=== PATIENT | male | born 1960 | race African-American/Black ===

== ENCOUNTER 2017-04-28 18:15 | Inpatient (IN) | payer BC ==
--- NOTE | 2017-04-28 20:35 | PDOC ---
History of Present Illness <Adan Broderick - Last Filed: 04/28/17 23:26> - General History Source: Patient Exam Limitations: No Limitations - History of Present Illness Initial Comments: 04/28/17 21:11 The patient is a 56-year-old male, with a significant past medical history of bipolar disorder (on [place]), who presents to the ED with urinary incontinence that began yesterday. Pt had a recent prostate procedure done by Dr. Esther Negro for an enlarged prostate. Pt was able to use the bathroom normally after having the procedure done, but yesterday the patient states that he could not control his urine. He has not been able to get to the bathroom on time when he gets the urge to go. Pt also reports that he has been having difficulty speaking today and has not been able to get his words out. He normally does not have trouble speaking. Pt denies having any pain around his testicles. He denies any back pain or weakness. He denies any fever or abdominal pain. Surgical Hx: Right knee surgery Social Hx: Pt denies any tobacco, alcohol or drug use. Urologist: Dr. Esther Negro <Halley Patricia - Last Filed: 04/29/17 00:39> - General Chief Complaint: Urinary Problem Stated Complaint: URINARY PROBLEM/change in mental status Time Seen by Provider: 04/28/17 20:34 Past History - Past Medical History Psychiatric Problems: Yes (BIPOLAR) Other medical history: urinary problem - Psycho/Social/Smoking Cessation Hx Suicidal Ideation: No Smoking Status: No Smoking History: Never smoked Number of Cigarettes Smoked Daily: 0 Information on smoking cessation initiated: No Hx Alcohol Use: No Drug/Substance Use Hx: No Substance Use Type: None <Adan Broderick - Last Filed: 04/28/17 23:26> <Halley Patricia - Last Filed: 04/29/17 00:39> - Past Medical History Allergies/Adverse Reactions: Allergies Allergy/AdvReac Type Severity Reaction Status Date / Time No Known Allergies Allergy Verified 04/28/17 22:47 Home Medications: Ambulatory Orders [place] Aspartate [Lithate] 0 mg PO DAILY 04/28/17 Review of Systems - Review of Systems Able to Perform ROS?: Yes Comments:: 04/28/17 21:12 GENERAL/CONSTITUTIONAL: No fever or chills. No weakness. HEAD, EYES, EARS, NOSE AND THROAT: No change in vision. No ear pain or discharge. No sore throat. CARDIOVASCULAR: No chest pain or shortness of breath. RESPIRATORY: No cough, wheezing, or hemoptysis. GASTROINTESTINAL: No nausea, vomiting, diarrhea or constipation. GENITOURINARY: +urinary incontinence. No dysuria. MUSCULOSKELETAL: No joint or muscle swelling or pain. No neck or back pain. SKIN: No rash NEUROLOGIC: +Difficulty speaking. No headache, vertigo, loss of consciousness, or change in strength/sensation. ENDOCRINE: No increased thirst. No abnormal weight change. HEMATOLOGIC/LYMPHATIC: No anemia, easy bleeding, or history of blood clots. ALLERGIC/IMMUNOLOGIC: No hives or skin allergy. <Halley Patricia - Last Filed: 04/29/17 00:39> *Physical Exam - Vital Signs Last Vital Signs Temp Pulse Resp BP Pulse Ox 99 F 105 H 18 112/61 97 04/28/17 18:28 04/28/17 18:28 04/28/17 18:28 04/28/17 18:28 04/28/17 18:28 <Adan Broderick - Last Filed: 04/28/17 23:26> - Vital Signs Last Vital Signs Temp Pulse Resp BP Pulse Ox 99 F 105 H 18 112/61 97 04/28/17 18:28 04/28/17 18:28 04/28/17 18:28 04/28/17 18:28 04/28/17 18:28 - Physical Exam Comments: 04/28/17 21:13 GENERAL: Awake, alert, and fully oriented, in no acute distress HEAD: No signs of trauma EYES: PERRLA, EOMI, sclera anicteric, conjunctiva clear ENT: Auricles normal inspection, hearing grossly normal, nares patent, oropharynx clear without exudates. Moist mucosa NECK: Normal ROM, supple, no lymphadenopathy, JVD, or masses LUNGS: Breath sounds equal, clear to auscultation bilaterally. No wheezes, and no crackles HEART: Regular rate and rhythm, normal S1 and S2, no murmurs, rubs or gallops ABDOMEN: +Diffusely tender over bladder. Abdomen is distended. Soft, normoactive bowel sounds. No guarding, no rebound. No masses EXTREMITIES: Normal range of motion, no edema. No clubbing or cyanosis. No cords, erythema, or tenderness NEUROLOGICAL: Cranial nerves II through XII grossly intact. SKIN: Warm, Dry, normal turgor, no rashes or lesions noted <Halley Patricia - Last Filed: 04/29/17 00:39> ED Treatment Course - LABORATORY CBC & Chemistry Diagram: 04/28/17 21:24 04/28/17 21:24 <Adan Broderick - Last Filed: 04/28/17 23:26> - LABORATORY CBC & Chemistry Diagram: 04/28/17 21:24 04/28/17 21:24 <Halley Patricia - Last Filed: 04/29/17 00:39> Medical Decision Making - Medical Decision Making 04/29/17 00:37 Family provided the patient's prescription bottles. He is taking tamsulosin 0.4 mg capsules (1 capsule everyday) and lithium carbonate 450 mg tablets (1 tablet twice a day). <HarshadHalley - Last Filed: 04/29/17 00:39> *DC/Admit/Observation/Transfer - Discharge Dispostion Admit: Yes - Attestations Physician Attestion: 04/28/17 20:35 I, Dr. Adan Broderick, attest that this document has been prepared under my direction and personally reviewed by me in its entirety. I further attest, that it accurately reflects all work, treatment, procedures and medical decision -making performed by me. <Adan Broderick - Last Filed: 04/28/17 23:26> - Attestations Scribe Attestion: 04/28/17 21:13 Documentation prepared by Halley Patricia, acting as medical claims analyst for Adan Broderick MD. <HarshadHalley - Last Filed: 04/29/17 00:39> Diagnosis at time of Disposition: Sepsis Qualifiers: Sepsis type: sepsis due to unspecified organism Qualified Code(s): A41.9 - Sepsis, unspecified organism UTI (urinary tract infection) Qualifiers: Urinary tract infection type: site unspecified Hematuria presence: with hematuria Qualified Code(s): N39.0 - Urinary tract infection, site not specified - Discharge Dispostion Condition at time of disposition: Improved
[2017-04-28] MEDS ORDERED: SODIUM CHLORIDE 0.9% 1000 ML INFUS.BAG IV STA (20:44)
[2017-04-28 21:26] LABS: VENOUS BLOOD GAS HCO3 22.7 meq/L (19-25); VENOUS PH 7.43 (7.32-7.42)
[2017-04-28 21:48] LABS: MCH 26.7 pg (25.7-33.7); MCHC 32.4 g/dl (32.0-35.9); MEAN CELL VOLUME 82.5 fl (80-96); MEAN PLT VOLUME 10.2 fl (7.5-11.1); PLATELET COUNT 124 K/MM3 (134-434); RDW 14.8 % (11.9-15.9); WHITE BLOOD COUNT 23.8 K/mm3 (4.0-10.0)
[2017-04-28 21:54] LABS: URINE APPEARANCE CLOUDY; URINE BILIRUBIN NEGATIVE (NEGATIVE); URINE BLOOD 3+ (NEGATIVE); URINE COLOR AMBER; URINE GLUCOSE (UA) NEGATIVE (NEGATIVE); URINE KETONE NEGATIVE (NEGATIVE); URINE NITRITE NEGATIVE (NEGATIVE)
[2017-04-28 21:55] LABS: URINE LEUK ESTERASE 3+ (NEGATIVE); URINE PROTEIN 2+ (NEGATIVE)
[2017-04-28 21:58] LABS: URINE BACTERIA RARE /hpf (NONE SEEN); URINE RBC 56 /hpf (0-3); URINE WBC 1031 /hpf (3-5); YEAST FEW
[2017-04-28 22:01] LABS: URINE MARIJUANA THC NEGATIVE ng/ml (CUTOFF=50)
[2017-04-28 22:08] LABS: INR 2.1 (0.82-1.09); PROTHROMBIN TIME (PATIENT) 23.4 SEC (9.98-11.88)
[2017-04-28 22:11] LABS: ACTIVATED PTT 31.6 SECONDS (26.9-34.4)
[2017-04-28 22:14] LABS: DOHLE BODIES 1+; PLATELET ESTIMATE DECREASED (NORMAL); POLYCHROMASIA FEW; TOXIC GRANULATION FEW
[2017-04-28 22:20] LABS: ALBUMIN 3.2 g/dl (3.4-5.0); ANION GAP 8 (8-16); BILIRUBIN,TOTAL 1.6 mg/dL (0.2-1.0); CALCIUM 8.3 mg/dL (8.5-10.1); CO2 23 mmol/L (21-32); CREATININE 2.2 mg/dL (0.7-1.3); GLUCOSE,RANDOM 123 mg/dL (74-106); SGOT/AST 29 U/L (15-37); SGPT/ALT 49 U/L (12-78); TOT PROT 6.4 g/dl (6.4-8.2)
[2017-04-28 22:22] LABS: ALK PHOS 38 U/L (45-117); CPK 209 IU/L (39-308); TROPONIN I < 0.02 ng/ml (0.00-0.05)
[2017-04-28] MEDS ORDERED: SODIUM CHLORIDE 1,000 ML IV STA (22:33)
[2017-04-28] MEDS ORDERED: MEROPENEM 1,000 MG in DEXTROSE 5%-WATER - 100 ML IVPB ONE (22:40)
--- NOTE | 2017-04-28 22:49 | CONSULT ---
Consult Consult Specialty:: infectious diseases Reason for Consultation:: sepsis. uti - History of Present Illness Chief Complaint: fever weakness,increased urination History of Present Illness: The patient is a 56-year-old male, with a significant past medical history of bipolar disorder (on [place]), admitted with urinary incontinence that began yesterday. Pt had a recent prostate procedure done by Dr. Esther Negro for an enlarged prostate. Pt was able to use the bathroom normally after having the procedure done, but yesterday the patient states that he could not control his urine. He has not been able to get to the bathroom on time when he gets the urge to go. He also reports that there was some difficulty in speaking and the main concern was him that he was not able to hold his urine at all patient also mentions that he was starting to be febrile he currently looks much better and has no other issues patient was started on abx last night - History Source History Provided By: Patient Limitations to Obtaining History: No Limitations - Alcohol/Substance Use Hx Alcohol Use: No - Smoking History Smoking history: Never smoked Aproximately how many cigarettes per day: 0 Home Medications - Allergies Allergies/Adverse Reactions: Allergies Allergy/AdvReac Type Severity Reaction Status Date / Time No Known Allergies Allergy Verified 04/28/17 22:47 - Home Medications Home Medications: Ambulatory Orders [place] Aspartate [Lithate] 0 mg PO DAILY 04/28/17 [place] Carbonate [Eskal[place] -] 450 mg PO BID 04/29/17 Tamsulosin HCl [Flomax] 0.4 mg PO DAILY 04/29/17 Review of Systems - Review of Systems Constitutional: reports: Fever Eyes: reports: No Symptoms HENT: reports: No Symptoms Neck: reports: No Symptoms Cardiovascular: reports: No Symptoms Respiratory: reports: No Symptoms Gastrointestinal: reports: No Symptoms Genitourinary: reports: Frequency (increased) Neurological: reports: No Symptoms Endocrine: reports: No Symptoms Hematology/Lymphatic: reports: No Symptoms Psychiatric: reports: No Symptoms Physical Exam Vital Signs: Vital Signs Temperature 99 F 04/28/17 18:28 Pulse Rate 105 H 04/28/17 18:28 Respiratory Rate 18 04/28/17 18:28 Blood Pressure 112/61 04/28/17 18:28 O2 Sat by Pulse Oximetry (%) 97 04/28/17 20:25 Constitutional: Yes: Well Nourished, No Distress, Calm Eyes: Yes: Conjunctiva Clear HENT: Yes: Atraumatic Neck: Yes: Supple Cardiovascular: Yes: Regular Rate and Rhythm Respiratory: Yes: Regular, CTA Bilaterally Gastrointestinal: Yes: Normal Bowel Sounds, Soft Musculoskeletal: Yes: WNL Extremities: Yes: WNL Neurological: Yes: Alert, Oriented Psychiatric: Yes: Alert, Oriented Labs: CBC, BMP 04/28/17 21:24 04/28/17 21:24 Imaging - Results Chest X-ray: Report Reviewed, Image Reviewed Cat Scan: Report Reviewed, Image Reviewed Ultrasound: Report Reviewed, Image Reviewed Assessment/Plan 56yo M with dysuria, polyuria, and slightly altered per fiance for the past 2 days s/p urological procedure. Meropenem therapy initiated. Urine Cx, Blood culture x2 collected. 1) Sepsis secondary to UTI, complicated 2) Altered mental status 3) JEAN suspected vs CKD 4) History Bipolar disorder 5) BPH suspected 6 bacteremia gm negative 7 leukocytosis plan hydration close watch on urine output abx monitor wbc
[2017-04-28] MEDS ORDERED: ONDANSETRON 4 MG/2 ML VIAL IVPB PRN (23:24)
[2017-04-28] MEDS ORDERED: IBUPROFEN 600 MG TABLET (FP) PO PRN (23:36)
--- NOTE | 2017-04-28 23:36 | PN ---
Teaching Attending Note Name of Resident: Irvin Castro ATTENDING PHYSICIAN STATEMENT I saw and evaluated the patient. I reviewed the resident's note and discussed the case with the resident. I agree with the resident's findings and plan as documented. SUBJECTIVE: 56 y/o male s/p urological procedure (?cystoscopy) presented to the ED for AMS, with dysuria and increased frequency in urination and subjective fever for 1 day. OBJECTIVE: GEN: Afebrile, mild distress, A&Ox3 CVS: RRR, S1, S2 LUNGs: CTA, no wheezing ABD: Soft, NT, ND, BS+, no guarding or rebound. EXT: nl ROM, no edema CBCD WBC 23.8 K/mm3 (4.0-10.0) H 04/28/17 21:24 RBC 4.67 M/mm3 (4.00-5.60) 04/28/17 21:24 Hgb 12.5 GM/dL (11.7-16.9) 04/28/17 21:24 Hct 38.5 % (35.4-49) 04/28/17 21:24 MCV 82.5 fl (80-96) 04/28/17 21:24 MCHC 32.4 g/dl (32.0-35.9) 04/28/17 21:24 RDW 14.8 % (11.9-15.9) 04/28/17 21:24 Plt Count 124 K/MM3 (134-434) L 04/28/17 21:24 MPV 10.2 fl (7.5-11.1) 04/28/17 21:24 CMP Sodium 135 mmol/L (136-145) L 04/28/17 21:24 Potassium 4.1 mmol/L (3.5-5.1) 04/28/17 21:24 Chloride 104 mmol/L (98-107) 04/28/17 21:24 Carbon Dioxide 23 mmol/L (21-32) 04/28/17 21:24 Anion Gap 8 (8-16) 04/28/17 21:24 BUN 26 mg/dL (7-18) H 04/28/17 21:24 Creatinine 2.2 mg/dL (0.7-1.3) H 04/28/17 21:24 Creat Clearance w eGFR 31.01 (>60) 04/28/17 21:24 Calcium 8.3 mg/dL (8.5-10.1) L 04/28/17 21:24 Total Bilirubin 1.6 mg/dL (0.2-1.0) H 04/28/17 21:24 AST 29 U/L (15-37) 04/28/17 21:24 ALT 49 U/L (12-78) 04/28/17 21:24 Alkaline Phosphatase 38 U/L (45-117) L 04/28/17 21:24 Total Protein 6.4 g/dl (6.4-8.2) 04/28/17 21:24 Albumin 3.2 g/dl (3.4-5.0) L 04/28/17 21:24 ASSESSMENT AND PLAN: AMS posibly secondary to Sepsis vs hepatic encephalopathy. Sepsis secondary to UTI IVF Meropenem Zofran prn Tylenol PRN for fever and pain ID consult get [facility] liver LFTs and consider hepatitis panel JEAN or CKD Repeat BMP in AM Urine electrolytes [facility] kidney. Bipolar d/o Continue home meds
[2017-04-28] MEDS ORDERED: LACTULOSE 20 GM/30 ML UDC (FOR ORAL USE ONLY) PO ONE (23:39)
[2017-04-28] MEDS: SODIUM CHLORIDE 1,000 ML IV SCH (23:42)
[2017-04-28] MEDS ORDERED: LACTULOSE 20 GM/30 ML UDC (FOR ORAL USE ONLY) ONE (23:51)
--- NOTE | 2017-04-29 00:11 | HP ---
CHIEF COMPLAINT: PCP: HISTORY OF PRESENT ILLNESS: 56 yo M with history of bipolar disorder (on [place]) and prostate enlargement ( s/p procedure) c/o dysuria with polyuria with some incontinence for the past 2 days. Pt states he underwent a procedure at the urologists to investigate his prostate enlargement on 04/25. After the procedure, pt was able to void with no problem however Friday 04/27, he developed these symptoms. Pt denies any history of kidney stones, diabetes, or steroid usage. Currently pt is seen alongside jemal, who reports pt having trouble finding choice in words, which he did not have prior. Pt denies fevers/chills, abdominal pain, back pain, diarrhea/constipation, testicular pain, or genital rash/lesions. He also states that was given Vesicare post-procedurally, however developed severe generalized pruritus and promptly stopped taking the medication. ER course was notable for: (1) UA revealing 2K WBC count and 3+ leuk esterase (2) 3L NS (3) Blood Cx x2, Urine Cx (4) Initiation of Meropenem (5) CBC, CMP, Ammonia level, Urine tox. screen Urologist: Dr. Kianna Negro Recent Travel: Travel to [facility] PAST MEDICAL HISTORY: Bipolar disorder Prostate Enlargement PAST SURGICAL HISTORY: "Urology procedure for prostate" Right knee surgery Social History: Smoking: No Alcohol: No Drugs: No Family History: Allergies No Known Allergies Allergy (Verified 04/28/17 22:47) HOME MEDICATIONS: Home Medications Medication Instructions Recorded [place] Aspartate [Lithate] 0 mg PO DAILY 04/28/17 REVIEW OF SYSTEMS CONSTITUTIONAL: Absent: fever, chills, diaphoresis, weight change HEENT: Absent: rhinorrhea, nasal congestion, throat pain, throat swelling, difficulty swallowing, mouth swelling, ear pain, eye pain, visual changes CARDIOVASCULAR: Absent: chest pain, syncope, palpitations, irregular heart rate, lightheadedness , peripheral edema RESPIRATORY: Absent: cough, shortness of breath, dyspnea with exertion, orthopnea, wheezing, stridor, hemoptysis GASTROINTESTINAL: Absent: abdominal pain, abdominal distension, nausea, vomiting, diarrhea, constipation, melena, hematochezia GENITOURINARY: Present: Dysuria, Polyuria, Urinary incontinence, urgency Absent: hematuria, flank pain, genital pain MUSCULOSKELETAL: Absent: back pain, neck pain SKIN: Absent: rash, itching, pallor NEUROLOGIC: Absent: headache, focal weakness or paresthesias, dizziness, unsteady gait, seizure PSYCHIATRIC: Absent: anxiety, depression, suicidal or homicidal ideation, hallucinations. PHYSICAL EXAMINATION Vital Signs - 24 hr 04/28/17 04/28/17 18:28 20:25 Temperature 99 F Pulse Rate 105 H Respiratory 18 Rate Blood Pressure 112/61 O2 Sat by Pulse 97 97 Oximetry (%) GENERAL: Awake, alert, and fully oriented, in no acute distress. EYES: Pupils equal, round and reactive to light, extraocular movements intact, sclera anicteric, conjunctival injections noted without purulence. Mouth: Moist mucosa, structures of the mouth normal LUNGS: Breath sounds equal, clear to auscultation bilaterally. No wheezes, and no crackles. No accessory muscle use. HEART: Regular rate and rhythm, normal S1 and S2 without murmur, rub or gallop. ABDOMEN: Soft, nontender, obese, normoactive bowel sounds, no guarding, no rebound, no masses. No hepatomegaly or splenomegaly noted. No suprapubic tenderness. MUSCULOSKELETAL: No CVA tenderness. UPPER EXTREMITIES: 2+ pulses, warm, well-perfused. No peripheral edema. LOWER EXTREMITIES: 2+ pulses, warm, well-perfused. No peripheral edema. NEUROLOGICAL: Normal speech. AO x3. No focal neurologic deficits PSYCHIATRIC: Cooperative. Appropriate mood and affect. SKIN: Warm, dry, normal turgor, no rashes or lesions noted Laboratory Results - last 24 hr 04/28/17 04/28/17 04/28/17 21:24 21:24 21:24 WBC 23.8 H RBC 4.67 Hgb 12.5 Hct 38.5 MCV 82.5 MCH 26.7 MCHC 32.4 RDW 14.8 Plt Count 124 L MPV 10.2 Neutrophils % 82.0 Lymphocytes % 8.0 Monocytes % 6.0 Band Neutrophils 4.0 Toxic Granulation Few Dohle Bodies 1+ Platelet Estimate Decreased Platelet Comment No clumping noted Polychromasia Few INR 2.10 H PTT (Actin FS) 31.6 VBG pH POC VBG pCO2 POC VBG pO2 Mixed VBG HCO3 Sodium Potassium Chloride Carbon Dioxide Anion Gap BUN Creatinine Creat Clearance w eGFR Random Glucose Lactic Acid Calcium Total Bilirubin AST ALT Alkaline Phosphatase Ammonia Creatine Kinase Creatine Kinase Index CK-MB (CK-2) Troponin I Total Protein Albumin Urine Color Sherly Urine Appearance Cloudy Urine pH 5.0 Urine Protein 2+ H Urine Glucose (UA) Negative Urine Ketones Negative Urine Blood 3+ H Urine Nitrite Negative Urine Bilirubin Negative Urine Urobilinogen 2.0 Ur Leukocyte Esterase 3+ H Urine RBC 56 Urine WBC 1031 Ur Epithelial Cells Rare Urine Bacteria Rare Urine Yeast Few Opiates Screen Methadone Screen Barbiturate Screen Phencyclidine Screen Ur Amphetamines Screen MDMA (Ecstasy) Screen Benzodiazepines Screen Cocaine Screen U Marijuana (THC) Screen Alcohol, Quantitative Blood Type Antibody Screen 04/28/17 04/28/17 04/28/17 21:24 21:24 21:24 WBC RBC Hgb Hct MCV MCH MCHC RDW Plt Count MPV Neutrophils % Lymphocytes % Monocytes % Band Neutrophils Toxic Granulation Dohle Bodies Platelet Estimate Platelet Comment Polychromasia INR PTT (Actin FS) VBG pH POC VBG pCO2 POC VBG pO2 Mixed VBG HCO3 Sodium 135 L Potassium 4.1 Chloride 104 Carbon Dioxide 23 Anion Gap 8 BUN 26 H Creatinine 2.2 H Creat Clearance w eGFR 31.01 Random Glucose 123 H Lactic Acid 1.7 Calcium 8.3 L Total Bilirubin 1.6 H AST 29 ALT 49 Alkaline Phosphatase 38 L Ammonia Creatine Kinase 209 Creatine Kinase Index 0.4 CK-MB (CK-2) < 1.000 Troponin I < 0.02 Total Protein 6.4 Albumin 3.2 L Urine Color Urine Appearance Urine pH Urine Protein Urine Glucose (UA) Urine Ketones Urine Blood Urine Nitrite Urine Bilirubin Urine Urobilinogen Ur Leukocyte Esterase Urine RBC Urine WBC Ur Epithelial Cells Urine Bacteria Urine Yeast Opiates Screen Methadone Screen Barbiturate Screen Phencyclidine Screen Ur Amphetamines Screen MDMA (Ecstasy) Screen Benzodiazepines Screen Cocaine Screen U Marijuana (THC) Screen Alcohol, Quantitative Blood Type AB NEGATIVE Antibody Screen Negative 04/28/17 04/28/17 04/28/17 21:24 21:24 21:24 WBC RBC Hgb Hct MCV MCH MCHC RDW Plt Count MPV Neutrophils % Lymphocytes % Monocytes % Band Neutrophils Toxic Granulation Dohle Bodies Platelet Estimate Platelet Comment Polychromasia INR PTT (Actin FS) VBG pH POC VBG pCO2 POC VBG pO2 Mixed VBG HCO3 Sodium Potassium Chloride Carbon Dioxide Anion Gap BUN Creatinine Creat Clearance w eGFR Random Glucose Lactic Acid 1.7 Calcium Total Bilirubin AST ALT Alkaline Phosphatase Ammonia 33.51 H Creatine Kinase Creatine Kinase Index CK-MB (CK-2) Troponin I Total Protein Albumin Urine Color Urine Appearance Urine pH Urine Protein Urine Glucose (UA) Urine Ketones Urine Blood Urine Nitrite Urine Bilirubin Urine Urobilinogen Ur Leukocyte Esterase Urine RBC Urine WBC Ur Epithelial Cells Urine Bacteria Urine Yeast Opiates Screen Methadone Screen Barbiturate Screen Phencyclidine Screen Ur Amphetamines Screen MDMA (Ecstasy) Screen Benzodiazepines Screen Cocaine Screen U Marijuana (THC) Screen Alcohol, Quantitative < 5.0 Blood Type Antibody Screen 04/28/17 04/28/17 21:24 21:25 WBC RBC Hgb Hct MCV MCH MCHC RDW Plt Count MPV Neutrophils % Lymphocytes % Monocytes % Band Neutrophils Toxic Granulation Dohle Bodies Platelet Estimate Platelet Comment Polychromasia INR PTT (Actin FS) VBG pH 7.43 H POC VBG pCO2 34.7 L POC VBG pO2 33.8 Mixed VBG HCO3 22.7 Sodium Potassium Chloride Carbon Dioxide Anion Gap BUN Creatinine Creat Clearance w eGFR Random Glucose Lactic Acid Calcium Total Bilirubin AST ALT Alkaline Phosphatase Ammonia Creatine Kinase Creatine Kinase Index CK-MB (CK-2) Troponin I Total Protein Albumin Urine Color Urine Appearance Urine pH Urine Protein Urine Glucose (UA) Urine Ketones Urine Blood Urine Nitrite Urine Bilirubin Urine Urobilinogen Ur Leukocyte Esterase Urine RBC Urine WBC Ur Epithelial Cells Urine Bacteria Urine Yeast Opiates Screen Negative Methadone Screen Negative Barbiturate Screen Negative Phencyclidine Screen Negative Ur Amphetamines Screen Negative MDMA (Ecstasy) Screen Negative Benzodiazepines Screen Negative Cocaine Screen Negative U Marijuana (THC) Screen Negative Alcohol, Quantitative Blood Type Antibody Screen ASSESSMENT/PLAN: 56yo M with dysuria, polyuria, and slightly altered per fiance for the past 2 days s/p urological procedure. Meropenem therapy initiated. Urine Cx, Blood culture x2 collected. 1) Sepsis secondary to UTI, complicated --UA: WBC 1031, Leuk esterase 3+, cloudy Blood 3+ RBC 57 --WBC 23.8, Pulse 105, BP stable at 112/61, Temp 99.0 --Continue Meropenem 1gm IV BID --Continue normal saline fluids --Will follow blood cultures and urine cultures --Dr. Ospina for ID on board --Will consult urology, Dr. Kianna Negro --Due to previous Vesicare adverse reaction, will start Flomax --Tylenol 650mg PRN for fever/pain control --Hopper was inserted traumatically in ED with minimal urine output; will DC due to colonization risk from UTI. 2) Altered mental status --Per pt's fiancee, pt is having trouble with word choice not normally present --Given elevation in ammonia and INR will r/o hepatic encephalopathy --Liver US ordered --Will follow LFTs --Lactulose 20gm PO --Doubt stroke/TIA due to lack of focal neuro deficits, any change in sensation or motor cognition, and AOx3 3) JEAN suspected vs CKD --Dehydration/acute UTI vs post-renal azotemia (obstructive prostate) --Cr 2.3 today; no baseline obtained from chart history; will f/u --Will hydrate with NS and follow CMP for renal function --B/L renal US ordered to r/o hydronephrosis; will f/u --Urine sodium and urine creatinine ordered 4) History Bipolar disorder --On [place] therapy; will order serum lithium level --Continue [place] carbonate 450mg PO BID 5) BPH suspected --Continuing home medication: Tamsulosin 0.4mg PO qDaily FEN: Fluids: NS @125; already had 3L in ED Electrolyte abnormalities: Na 135; will follow in AM Nutrition: Regular Diet PPX DVT: SCDs applied to both legs GI: Not indicated at current time Dispo: Admit to M/S Visit type - Emergency Visit Emergency Visit: Yes ED Registration Date: 04/28/17 Care time: The patient presented to the Emergency Department on the above date and was hospitalized for further evaluation of their emergent condition. - New Patient This patient is new to me today: Yes Date on this admission: 04/29/17 - Critical Care Critical Care patient: No
[2017-04-29] MEDS: ACETAMINOPHEN 325 MG TABLET (FP) PO PRN ×3 (01:17→21:21)
[2017-04-29] MEDS ORDERED: ACETAMINOPHEN 325 MG TABLET (FP) ONE (01:32)
[2017-04-29] MEDS: SODIUM CHLORIDE 1,000 ML IV SCH (02:33)
[2017-04-29 03:41] VITALS: BMI 35.9
[2017-04-29 06:32] LABS: MCH 26.8 pg (25.7-33.7); MCHC 32.2 g/dl (32.0-35.9); MEAN PLT VOLUME 10.4 fl (7.5-11.1); PLATELET COUNT 101 K/MM3 (134-434); WHITE BLOOD COUNT 21.7 K/mm3 (4.0-10.0)
[2017-04-29 06:45] LABS: INR 2.05 (0.82-1.09); PROTHROMBIN TIME (PATIENT) 22.9 SEC (9.98-11.88)
[2017-04-29 06:48] LABS: ACTIVATED PTT 30.9 SECONDS (26.9-34.4)
[2017-04-29 06:58] LABS: ALBUMIN 2.8 g/dl (3.4-5.0); ALK PHOS 43 U/L (45-117); ANION GAP 8 (8-16); BILIRUBIN,TOTAL 1.5 mg/dL (0.2-1.0); CALCIUM 7.8 mg/dL (8.5-10.1); CO2 25 mmol/L (21-32); CREATININE 1.9 mg/dL (0.7-1.3); GLUCOSE,RANDOM 113 mg/dL (74-106); MAGNESIUM 1.9 mg/dL (1.8-2.4); PHOSPHOROUS 2.7 mg/dL (2.5-4.9); SGOT/AST 37 U/L (15-37); SGPT/ALT 60 U/L (12-78); TOT PROT 5.8 g/dl (6.4-8.2)
--- NOTE | 2017-04-29 09:22 | MSN ---
Progress Note (short form) - Note Progress Note: Pt seen and examined at bedside, no acute overnight events. Pt states he is feeling a little better this morning, had a catheter placed in the ED so no longer has feelings of having to go all the time but states it burned when they put the catheter in. Denies fever, chills, abd pain, palpitations, chest pain or shortness of breath. Has been taking Li for the past 30 years with no issues. Allergies: NKDA Family Hx: none Last Vital Signs Temp Pulse Resp BP Pulse Ox 98.8 F 87 20 109/59 98 04/29/17 07:03 04/29/17 07:03 04/29/17 07:03 04/29/17 07:03 04/29/17 02:24 PE: constitutional: appears in mild distress, diaphoretic with tremulous speech, slightly confused with HPI, A&Ox3 Head: atraumatic, normocephalic, moist mucus membranes Eyes: miosis b/l, some slceral icterus noted (R>L), EOM intact Heart: tachycardic, no murmur/rubs/gallops appreciated Lungs: CTA anteriorly b/l Abd: distended with no fluid wave, normoactive bowel sounds all 4 quadrants, + warren sign, no hepatosplenomegaly MSK: 4/5 forearm flexion and extension, 4/5 LE flexion and extension, sensation intact LE/UE Extremities: no LE edema observed, 2+ DP pulses b/l Neuro: tremulous voice, CN II-XII grossly intact, no asterisks noted but fine resting and intention tremor in b/l UE Laboratory Results - last 24 hr 04/28/17 04/28/17 04/28/17 21:24 21:24 21:24 WBC 23.8 H RBC 4.67 Hgb 12.5 Hct 38.5 MCV 82.5 MCH 26.7 MCHC 32.4 RDW 14.8 Plt Count 124 L MPV 10.2 Neutrophils % 82.0 Lymphocytes % 8.0 Monocytes % 6.0 Band Neutrophils 4.0 Toxic Granulation Few Dohle Bodies 1+ Platelet Estimate Decreased Platelet Comment No clumping noted Polychromasia Few INR 2.10 H PTT (Actin FS) 31.6 VBG pH POC VBG pCO2 POC VBG pO2 Mixed VBG HCO3 Sodium Potassium Chloride Carbon Dioxide Anion Gap BUN Creatinine Creat Clearance w eGFR Random Glucose Lactic Acid Calcium Phosphorus Magnesium Total Bilirubin Direct Bilirubin AST ALT Alkaline Phosphatase Ammonia Creatine Kinase Creatine Kinase Index CK-MB (CK-2) Troponin I Total Protein Albumin Urine Color Sherly Urine Appearance Cloudy Urine pH 5.0 Urine Protein 2+ H Urine Glucose (UA) Negative Urine Ketones Negative Urine Blood 3+ H Urine Nitrite Negative Urine Bilirubin Negative Urine Urobilinogen 2.0 Ur Leukocyte Esterase 3+ H Urine RBC 56 Urine WBC 1031 Ur Epithelial Cells Rare Urine Bacteria Rare Urine Yeast Few Opiates Screen Methadone Screen Barbiturate Screen Phencyclidine Screen Ur Amphetamines Screen MDMA (Ecstasy) Screen Benzodiazepines Screen Cocaine Screen U Marijuana (THC) Screen Alcohol, Quantitative Blood Type Antibody Screen 04/28/17 04/28/17 04/28/17 21:24 21:24 21:24 WBC RBC Hgb Hct MCV MCH MCHC RDW Plt Count MPV Neutrophils % Lymphocytes % Monocytes % Band Neutrophils Toxic Granulation Dohle Bodies Platelet Estimate Platelet Comment Polychromasia INR PTT (Actin FS) VBG pH POC VBG pCO2 POC VBG pO2 Mixed VBG HCO3 Sodium 135 L Potassium 4.1 Chloride 104 Carbon Dioxide 23 Anion Gap 8 BUN 26 H Creatinine 2.2 H Creat Clearance w eGFR 31.01 Random Glucose 123 H Lactic Acid 1.7 Calcium 8.3 L Phosphorus Magnesium Total Bilirubin 1.6 H Direct Bilirubin AST 29 ALT 49 Alkaline Phosphatase 38 L Ammonia Creatine Kinase 209 Creatine Kinase Index 0.4 CK-MB (CK-2) < 1.000 Troponin I < 0.02 Total Protein 6.4 Albumin 3.2 L Urine Color Urine Appearance Urine pH Urine Protein Urine Glucose (UA) Urine Ketones Urine Blood Urine Nitrite Urine Bilirubin Urine Urobilinogen Ur Leukocyte Esterase Urine RBC Urine WBC Ur Epithelial Cells Urine Bacteria Urine Yeast Opiates Screen Methadone Screen Barbiturate Screen Phencyclidine Screen Ur Amphetamines Screen MDMA (Ecstasy) Screen Benzodiazepines Screen Cocaine Screen U Marijuana (THC) Screen Alcohol, Quantitative Blood Type AB NEGATIVE Antibody Screen Negative 04/28/17 04/28/17 04/28/17 21:24 21:24 21:24 WBC RBC Hgb Hct MCV MCH MCHC RDW Plt Count MPV Neutrophils % Lymphocytes % Monocytes % Band Neutrophils Toxic Granulation Dohle Bodies Platelet Estimate Platelet Comment Polychromasia INR PTT (Actin FS) VBG pH POC VBG pCO2 POC VBG pO2 Mixed VBG HCO3 Sodium Potassium Chloride Carbon Dioxide Anion Gap BUN Creatinine Creat Clearance w eGFR Random Glucose Lactic Acid 1.7 Calcium Phosphorus Magnesium Total Bilirubin Direct Bilirubin AST ALT Alkaline Phosphatase Ammonia 33.51 H Creatine Kinase Creatine Kinase Index CK-MB (CK-2) Troponin I Total Protein Albumin Urine Color Urine Appearance Urine pH Urine Protein Urine Glucose (UA) Urine Ketones Urine Blood Urine Nitrite Urine Bilirubin Urine Urobilinogen Ur Leukocyte Esterase Urine RBC Urine WBC Ur Epithelial Cells Urine Bacteria Urine Yeast Opiates Screen Methadone Screen Barbiturate Screen Phencyclidine Screen Ur Amphetamines Screen MDMA (Ecstasy) Screen Benzodiazepines Screen Cocaine Screen U Marijuana (THC) Screen Alcohol, Quantitative < 5.0 Blood Type Antibody Screen 04/28/17 04/28/17 04/29/17 21:24 21:25 00:18 WBC RBC Hgb Hct MCV MCH MCHC RDW Plt Count MPV Neutrophils % Lymphocytes % Monocytes % Band Neutrophils Toxic Granulation Dohle Bodies Platelet Estimate Platelet Comment Polychromasia INR PTT (Actin FS) VBG pH 7.43 H POC VBG pCO2 34.7 L POC VBG pO2 33.8 Mixed VBG HCO3 22.7 Sodium Potassium Chloride Carbon Dioxide Anion Gap BUN Creatinine Creat Clearance w eGFR Random Glucose Lactic Acid Calcium Phosphorus Magnesium Total Bilirubin Direct Bilirubin AST ALT Alkaline Phosphatase Ammonia Creatine Kinase Creatine Kinase Index CK-MB (CK-2) Troponin I Total Protein Albumin Urine Color Urine Appearance Urine pH Urine Protein Urine Glucose (UA) Urine Ketones Urine Blood Urine Nitrite Urine Bilirubin Urine Urobilinogen Ur Leukocyte Esterase Urine RBC Urine WBC Ur Epithelial Cells Urine Bacteria Urine Yeast Opiates Screen Negative Methadone Screen Negative Barbiturate Screen Negative Phencyclidine Screen Negative Ur Amphetamines Screen Negative MDMA (Ecstasy) Screen Negative Benzodiazepines Screen Negative Cocaine Screen Negative U Marijuana (THC) Screen Negative Alcohol, Quantitative Blood Type AB NEGATIVE Antibody Screen 04/29/17 04/29/17 04/29/17 00:18 05:38 05:38 WBC 21.7 H RBC 4.50 Hgb 12.1 Hct 37.4 MCV 83.0 MCH 26.8 MCHC 32.2 RDW 15.0 Plt Count 101 L MPV 10.4 Neutrophils % Y Lymphocytes % Y Monocytes % Band Neutrophils Toxic Granulation Dohle Bodies Platelet Estimate Platelet Comment Polychromasia INR PTT (Actin FS) VBG pH POC VBG pCO2 POC VBG pO2 Mixed VBG HCO3 Sodium 140 Potassium 4.4 Chloride 107 Carbon Dioxide 25 Anion Gap 8 BUN 24 H Creatinine 1.9 H Creat Clearance w eGFR 36.72 Random Glucose 113 H Lactic Acid Calcium 7.8 L Phosphorus 2.7 Magnesium 1.9 Total Bilirubin 1.5 H Direct Bilirubin 0.4 H AST 37 D ALT 60 D Alkaline Phosphatase 43 L Ammonia Creatine Kinase Creatine Kinase Index CK-MB (CK-2) Troponin I Total Protein 5.8 L Albumin 2.8 L Urine Color Urine Appearance Urine pH Urine Protein Urine Glucose (UA) Urine Ketones Urine Blood Urine Nitrite Urine Bilirubin Urine Urobilinogen Ur Leukocyte Esterase Urine RBC Urine WBC Ur Epithelial Cells Urine Bacteria Urine Yeast Opiates Screen Methadone Screen Barbiturate Screen Phencyclidine Screen Ur Amphetamines Screen MDMA (Ecstasy) Screen Benzodiazepines Screen Cocaine Screen U Marijuana (THC) Screen Alcohol, Quantitative Blood Type Antibody Screen 04/29/17 04/29/17 05:38 05:38 WBC RBC Hgb Hct MCV MCH MCHC RDW Plt Count MPV Neutrophils % Lymphocytes % Monocytes % Band Neutrophils Toxic Granulation Dohle Bodies Platelet Estimate Platelet Comment Polychromasia INR 2.05 H PTT (Actin FS) 30.9 VBG pH POC VBG pCO2 POC VBG pO2 Mixed VBG HCO3 Sodium Potassium Chloride Carbon Dioxide Anion Gap BUN Creatinine Creat Clearance w eGFR Random Glucose Lactic Acid Calcium Phosphorus Magnesium Total Bilirubin Direct Bilirubin AST ALT Alkaline Phosphatase Ammonia 35.5 H Creatine Kinase Creatine Kinase Index CK-MB (CK-2) Troponin I Total Protein Albumin Urine Color Urine Appearance Urine pH Urine Protein Urine Glucose (UA) Urine Ketones Urine Blood Urine Nitrite Urine Bilirubin Urine Urobilinogen Ur Leukocyte Esterase Urine RBC Urine WBC Ur Epithelial Cells Urine Bacteria Urine Yeast Opiates Screen Methadone Screen Barbiturate Screen Phencyclidine Screen Ur Amphetamines Screen MDMA (Ecstasy) Screen Benzodiazepines Screen Cocaine Screen U Marijuana (THC) Screen Alcohol, Quantitative Blood Type Antibody Screen Assessment: 56 y.o. M with PMHx of bipolar disorder and enlarged prostate s/p urodynamics, presented to the ED for worsening incontinence, dysuria, polyuria and admitted for sepsis secondary to UTI. Plan: 1. Sepsis secondary to UTI: possibly due to urologic procedure/ascending infection vs STI. Dr Baptiste and Dr. Negro (urologist who performed procedure) consulted. Meropenem 1gm IV BID per Dr. Baptiste. WBC decreased (23.8 to 21.7 today ), blood and urine cultures collected in the ED (pending). Cont to monitor temp , bp, HR for signs of worsening sepsis. - 11:00 AM: Spoke with Dr. Narvaez office, pt had urodynamics study done by outside splicing technician group on 04/26/17, no results received yet (ph ) 2. Altered mental status: possibly due to Li toxicity vs uremia (due to liver cirrhosis) vs bacteremia. Lactulose 20mg given in ED, Li level pending (to determine if at therapeutic dose). Head CT normal negative. Per fiance in the ED his speech is slowed and he has trouble with word choice, still present this AM. 3. JEAN vs CKD: possibly due to dehydration vs LI toxicity (nephrogenic diabetes insipidus) vs pyelonephritis vs post renal obstruction (due to enlarged prostate ) no baseline creatinine level known, level 1.9 today (2.2 last night). Cont on NS 100cc/hr, renal and hepatic U/S ordered. Urine cultures pending 4. Hx of Bipolar disorder: waiting for Li level, if wnl cont home Li 5. Enlarged prostate: cont tamsulosin, Dr. Negro consulted 6. DVT prophylaxis: SCDs b/l
[2017-04-29] MEDS: LITHIUM CARBONATE 450 MG TABLET.ER PO SCH ×2 (10:15→21:22)
[2017-04-29] MEDS: TAMSULOSIN HCL 0.4 MG CAP.ER.24H (FP) PO SCH (10:15)
--- NOTE | 2017-04-29 10:21 | EKG ---
Test Reason : Blood Pressure : / mmHG Vent. Rate : 095 BPM Atrial Rate : 095 BPM P-R Int : 156 ms QRS Dur : 086 ms QT Int : 332 ms P-R-T Axes : 070 061 045 degrees QTc Int : 417 ms NORMAL SINUS RHYTHM POSSIBLE LEFT ATRIAL ENLARGEMENT NO PREVIOUS ECGS AVAILABLE Confirmed by SAM GALLARDO MD ([id number]) on 04/29/2017 10:21:09 AM Referred By: Confirmed By:SAM GALLARDO MD
[2017-04-29] MEDS: MEROPENEM 1 GM in DEXTROSE 5%-WATER - 100 ML IVPB SCH ×2 (11:54→21:21)
[2017-04-29 12:23] LABS: METAMYELOCYTE 1 % (0-2); PLATELET ESTIMATE DECREASED (NORMAL)
--- NOTE | 2017-04-29 14:34 | PN ---
Physical Exam: SUBJECTIVE: Patient seen and examined at bedside. Pt states that he is no longer having dysuria, however coleman draining urine which appears sanguineous. Pt's voice is tremulous and fine tremor noted at rest and on intention. Denies chest pain, SOB, or lower extremity pain. OBJECTIVE: Vital Signs Period Temp Pulse Resp BP Sys/Ospina Pulse Ox Last 24 Hr 98.8 F-102.5 F 87-99 18-20 106-113/59-66 98-98 GENERAL: The patient is awake, alert, and fully oriented, in no acute distress. HEAD: Normal with no signs of trauma. EYES: PERRL, extraocular movements intact, scleral icterus present NECK: Trachea midline, full range of motion, supple. LUNGS: Breath sounds equal, clear to auscultation bilaterally, no wheezes, no crackles, no accessory muscle use. HEART: Tachycardic rate and rhythm, S1, S2 without murmur, rub or gallop. ABDOMEN: Soft, distended, tender RUQ, +River's sign, normoactive bowel sounds, no guarding, no rebound, no fluid wave present EXTREMITIES: 2+ posterior tibial pulses, warm, well-perfused, no edema, no asterixis present, 3/5 strength lower extremities, 4/5 strength upper extremities, sensation intact NEUROLOGICAL: Cranial nerves II through XII grossly intact. Tremulous speech. AAOx3 Laboratory Results - last 24 hr 04/29/17 04/29/17 04/29/17 00:18 00:18 05:38 WBC 21.7 H RBC 4.50 Hgb 12.1 Hct 37.4 MCV 83.0 MCH 26.8 MCHC 32.2 RDW 15.0 Plt Count 101 L MPV 10.4 Neutrophils % 89.0 H Lymphocytes % 4.0 L D Monocytes % 3.0 L Band Neutrophils 2.0 D Metamyelocytes 1 Myelocytes 1 Differential Comment Manual diff done Platelet Estimate Decreased INR PTT (Actin FS) Sodium Potassium Chloride Carbon Dioxide Anion Gap BUN Creatinine Creat Clearance w eGFR Random Glucose Calcium Phosphorus Magnesium Total Bilirubin Direct Bilirubin 0.4 H AST ALT Alkaline Phosphatase Ammonia Total Protein Albumin Urine Creatinine Blood Type AB NEGATIVE 04/29/17 04/29/17 04/29/17 05:38 05:38 05:38 WBC RBC Hgb Hct MCV MCH MCHC RDW Plt Count MPV Neutrophils % Lymphocytes % Monocytes % Band Neutrophils Metamyelocytes Myelocytes Differential Comment Platelet Estimate INR 2.05 H PTT (Actin FS) 30.9 Sodium 140 Potassium 4.4 Chloride 107 Carbon Dioxide 25 Anion Gap 8 BUN 24 H Creatinine 1.9 H Creat Clearance w eGFR 36.72 Random Glucose 113 H Calcium 7.8 L Phosphorus 2.7 Magnesium 1.9 Total Bilirubin 1.5 H Direct Bilirubin AST 37 D ALT 60 D Alkaline Phosphatase 43 L Ammonia 35.5 H Total Protein 5.8 L Albumin 2.8 L Urine Creatinine Blood Type 04/29/17 08:20 WBC RBC Hgb Hct MCV MCH MCHC RDW Plt Count MPV Neutrophils % Lymphocytes % Monocytes % Band Neutrophils Metamyelocytes Myelocytes Differential Comment Platelet Estimate INR PTT (Actin FS) Sodium Potassium Chloride Carbon Dioxide Anion Gap BUN Creatinine Creat Clearance w eGFR Random Glucose Calcium Phosphorus Magnesium Total Bilirubin Direct Bilirubin AST ALT Alkaline Phosphatase Ammonia Total Protein Albumin Urine Creatinine 40.5 Blood Type Active Medications Generic Name Dose Route Start Last Admin Trade Name Freq PRN Reason Stop Dose Admin Acetaminophen 650 mg 04/28/17 23:45 04/29/17 11:59 Tylenol - PO 650 mg Q6H PRN Administration PAIN SCALE 6-10 Meropenem 1 gm/ Dextrose 100 mls @ 100 mls/hr 04/29/17 10:00 04/29/17 11:54 IVPB 100 mls/hr BID ANT Administration Protocol Sodium Chloride 1,000 mls @ 100 mls/hr 04/28/17 23:45 04/29/17 02:33 Normal Saline - IV 100 mls/hr ASDIR ANT Administration [place] Carbonate 450 mg 04/29/17 10:00 04/29/17 10:15 Eskalith - PO 450 mg BID ANT Administration Ondansetron HCl 4 mg 04/28/17 23:24 Zofran Injection IVPB Q6H PRN NAUSEA Tamsulosin HCl 0.4 mg 04/29/17 08:30 04/29/17 10:15 Flomax - PO 0.4 mg DAILY@0830 ANT Administration ASSESSMENT/PLAN: This is a 56 yr old M with PMH of bipolar disorder (on [place]) and BPH s/p urodynamic testing and instrumentation, who presented to the ED for incontinence , dysuria, and polyuria for 2 days. Pt is admitted for sepsis secondary to UTI. # sepsis secondary to complicated UTI -Leukocytosis improved from 23.8 to 21.7, afebrile -UA 04/28/17: cloudy, 2+ urine protein, 3+ blood, 3+ leukocyte esterase, 56 urine RBCs, 1031 urine WBCs -Renal u/s: mild splenomegaly, R renal cyst and probable nephrolithiasis -Liver u/s : no sonographic hepatic abnormalities -Blood cx 04/28/17: Pending -Continue Meropenem 1g IV BID (Today day 1- 1 dose received so far) #Altered mental status -possibly d/t uremia (Ammonia 35.5) vs. bacteremia -LFTs WNL (AST 29, ALT 49) trending up to 37,60 (upper limit normal) -Pt given Lactulose 20mg given in ED, however will hold lactulose since ammonia level is not significantly elevated -[place] level pending -Albumin level low 2.8 -Total bilirubin 1.6 elevated, possible hepatic cause, however no result on hepatic US #JEAN vs. CKD -24/1.9 BUN/Cr trending down from 26/2.2, baseline Cr unknown -possibly d/t pre-renal azotemia dehydration vs. pyelo vs. post renal obstruction from BPH -Continue IV NS @ 100 mls/hr #Bipolar disorder -[place] level pending # BPH -Continue Flomax 0.4 mg PO -Coleman catheter in place, will check on -Dr. Negro consulted #DVT propylaxis -SCD's F/E/N IV NS 100 cc/hr monitor electrolytes regular diet Visit type - Emergency Visit Emergency Visit: No - New Patient This patient is new to me today: No - Critical Care Critical Care patient: No
--- NOTE | 2017-04-29 15:04 | PN ---
Teaching Attending Note Name of Resident: Marilee Peralta ATTENDING PHYSICIAN STATEMENT I saw and evaluated the patient. I reviewed the resident's note and discussed the case with the resident. I agree with the resident's findings and plan as documented. SUBJECTIVE: Patient says he is feeling better. OBJECTIVE: Vital Signs Period Temp Pulse Resp BP Sys/Ospina Pulse Ox Last 24 Hr 98.8 F-102.5 F 87-105 18-20 105-113/59-66 97-98 HEART: S1S2, RRR LUNGS: Clear ABDOMEN: Obese, soft, non-distended, mild RUQ tenderness, normal BS EXTREMITIES: No edema Current Medications Generic Name Dose Route Start Last Admin Trade Name Freq PRN Reason Stop Dose Admin Acetaminophen 650 mg 04/28/17 23:45 04/29/17 11:59 Tylenol - PO 650 mg Q6H PRN Administration PAIN SCALE 6-10 Meropenem 1 gm/ Dextrose 100 mls @ 100 mls/hr 04/29/17 10:00 04/29/17 11:54 IVPB 100 mls/hr BID ANT Administration Protocol Sodium Chloride 1,000 mls @ 100 mls/hr 04/28/17 23:45 04/29/17 02:33 Normal Saline - IV 100 mls/hr ASDIR ANT Administration [place] Carbonate 450 mg 04/29/17 10:00 04/29/17 10:15 Eskalith - PO 450 mg BID ANT Administration Ondansetron HCl 4 mg 04/28/17 23:24 Zofran Injection IVPB Q6H PRN NAUSEA Tamsulosin HCl 0.4 mg 04/29/17 08:30 04/29/17 10:15 Flomax - PO 0.4 mg DAILY@0830 ANT Administration ASSESSMENT AND PLAN: This is a 56-year-old man with a history of bipolar disorder, BPH, urinary incontinence who presented to the ER with dysuria, polyuria, and confusion. 1. Sepsis secondary to UTI - Continue Merrem - Continue IV fluid - Follow up blood, urine cultures 2. Acute metabolic encephalopathy secondary to sepsis - Improving 3. Acute kidney injury secondary to sepsis, possible obstruction from BPH - Improving - Continue IV fluid - Maintain Hopper catheter - Continue Flomax - US shows mild splenomegaly, right renal cyst, probable right renal stone 4. Bipolar disorder - Continue [place] 5. BPH with urinary incontinence - Continue Flomax - Maintain Hopper catheter - Underwent recent urodynamic studies
[2017-04-29] MEDS ORDERED: PT OWN MED DRAWER 7, Y5N ONE (21:17)
[2017-04-30] MEDS: SODIUM CHLORIDE 1,000 ML IV SCH (00:38)
[2017-04-30 07:26] LABS: BASOPHIL 0.3 % (0-2.0); EOSINOPHIL 0.9 % (0-4.5); MCH 26.7 pg (25.7-33.7); MCHC 32.3 g/dl (32.0-35.9); MEAN CELL VOLUME 82.8 fl (80-96); NEUTROPHILS 84.2 % (42.8-82.8); PLATELET COUNT 73 K/MM3 (134-434); RDW 15.5 % (11.9-15.9); WHITE BLOOD COUNT 17.3 K/mm3 (4.0-10.0)
[2017-04-30 07:46] LABS: ANION GAP 5 (8-16); CALCIUM 8.1 mg/dL (8.5-10.1); CO2 23 mmol/L (21-32); CREATININE 1.5 mg/dL (0.7-1.3); GLUCOSE,RANDOM 121 mg/dL (74-106)
[2017-04-30] MEDS: TAMSULOSIN HCL 0.4 MG CAP.ER.24H (FP) PO SCH (08:21)
--- NOTE | 2017-04-30 08:21 | PN ---
Physical Exam: SUBJECTIVE: Patient seen and examined. He is feeling better. OBJECTIVE: Vital Signs Period Temp Pulse Resp BP Sys/Ospina Pulse Ox Last 24 Hr 98.1 F-100.1 F 74-99 16-20 105-131/62-77 94-98 GENERAL: The patient is awake, alert, and fully oriented, in no acute distress. LUNGS: Breath sounds equal, clear to auscultation bilaterally, no wheezes, no crackles, no accessory muscle use. HEART: Regular rate and rhythm, S1, S2 without murmur, rub or gallop. ABDOMEN: Obese, soft, nontender, nondistended, normoactive bowel sounds, no guarding, no rebound, no hepatosplenomegaly, no masses. EXTREMITIES: 2+ pulses, warm, well-perfused, no edema. Laboratory Results - last 24 hr 04/29/17 04/29/17 04/30/17 05:38 08:20 06:20 WBC 21.7 H 17.3 H RBC 4.50 4.83 Hgb 12.1 12.9 Hct 37.4 40.0 MCV 83.0 82.8 MCH 26.8 26.7 MCHC 32.2 32.3 RDW 15.0 15.5 Plt Count 101 L 73 L D MPV 10.4 10.0 Neutrophils % 89.0 H 84.2 H Lymphocytes % 4.0 L D 5.8 L D Monocytes % 3.0 L 8.8 D Eosinophils % 0.9 Basophils % 0.3 Band Neutrophils 2.0 D Metamyelocytes 1 Myelocytes 1 Differential Comment Manual diff done Platelet Estimate Decreased Sodium Potassium Chloride Carbon Dioxide Anion Gap BUN Creatinine Random Glucose Calcium Urine Creatinine 40.5 04/30/17 06:20 WBC RBC Hgb Hct MCV MCH MCHC RDW Plt Count MPV Neutrophils % Lymphocytes % Monocytes % Eosinophils % Basophils % Band Neutrophils Metamyelocytes Myelocytes Differential Comment Platelet Estimate Sodium 143 Potassium 4.5 Chloride 115 H Carbon Dioxide 23 Anion Gap 5 L BUN 20 H Creatinine 1.5 H D Random Glucose 121 H Calcium 8.1 L Urine Creatinine Active Medications Generic Name Dose Route Start Last Admin Trade Name Freq PRN Reason Stop Dose Admin Acetaminophen 650 mg 04/28/17 23:45 04/29/17 21:21 Tylenol - PO 650 mg Q6H PRN Administration PAIN SCALE 6-10 Meropenem 1 gm/ Dextrose 100 mls @ 100 mls/hr 04/29/17 10:00 04/29/17 21:21 IVPB 100 mls/hr BID ANT Administration Protocol Sodium Chloride 1,000 mls @ 100 mls/hr 04/28/17 23:45 04/30/17 00:38 Normal Saline - IV 100 mls/hr ASDIR ANT Administration [place] Carbonate 450 mg 04/29/17 10:00 04/29/17 21:22 Eskalith - PO 450 mg BID ANT Administration Ondansetron HCl 4 mg 04/28/17 23:24 Zofran Injection IVPB Q6H PRN NAUSEA Tamsulosin HCl 0.4 mg 04/29/17 08:30 04/29/17 10:15 Flomax - PO 0.4 mg DAILY@0830 ANT Administration ASSESSMENT/PLAN: This is a 56-year-old man with a history of bipolar disorder, BPH, urinary incontinence who presented to the ER with dysuria, polyuria, and confusion. 1. Sepsis secondary to UTI and gram negative bacteremia after urodynamic studies - Afebrile; leukocytosis improving; tachycardia improved - Urine and blood (1 of 2) cultures growing gram negative bacilli - Continue Merrem - Continue IV fluid - Follow up culture ID and sensitivities 2. Acute metabolic encephalopathy secondary to sepsis - Resolved 3. Acute kidney injury secondary to sepsis, possible obstruction from BPH - Improving - Continue IV fluid - Maintain Hopper catheter - Continue Flomax - US shows mild splenomegaly, right renal cyst, probable right renal stone 4. Bipolar disorder - Continue [place] 5. BPH with urinary incontinence - Continue Flomax - Maintain Hopper catheter - Underwent recent urodynamic studies - Awaiting urology evaluation Visit type - Emergency Visit Emergency Visit: Yes ED Registration Date: 04/28/17 Care time: The patient presented to the Emergency Department on the above date and was hospitalized for further evaluation of their emergent condition. - New Patient This patient is new to me today: No - Critical Care Critical Care patient: No - Discharge Referral Referred to [facility] No
[2017-04-30] MEDS ORDERED: PT OWN MED DRAWER 7, Y5N ONE ×2 (09:10→21:32)
[2017-04-30] MEDS: LITHIUM CARBONATE 450 MG TABLET.ER PO SCH ×2 (09:15→21:36)
[2017-04-30] MEDS: MEROPENEM 1 GM in DEXTROSE 5%-WATER - 100 ML IVPB SCH ×2 (09:15→21:35)
--- NOTE | 2017-04-30 10:30 | PN ---
Progress Note, Physician Chief Complaint: INFECTIOUS DISEASE History of Present Illness: Pt states he feels better, with less weakness, more alert Denies pain, chills, fever today Tolerating antibiotics - Current Medication List Current Medications: Active Medications Acetaminophen (Tylenol -) 650 mg PO Q6H PRN PRN Reason: PAIN SCALE 6-10 Last Admin: 04/29/17 21:21 Dose: 650 mg Meropenem 1 gm/ Dextrose 100 mls @ 100 mls/hr IVPB BID [facility] PRN Reason: Protocol Last Admin: 04/30/17 09:15 Dose: 100 mls/hr Sodium Chloride (Normal Saline -) 1,000 mls @ 100 mls/hr IV ASDIR [facility] Last Admin: 04/30/17 00:38 Dose: 100 mls/hr [place] Carbonate (Eskalith -) 450 mg PO BID [facility] Last Admin: 04/30/17 09:15 Dose: 450 mg Ondansetron HCl (Zofran Injection) 4 mg IVPB Q6H PRN PRN Reason: NAUSEA Tamsulosin HCl (Flomax -) 0.4 mg PO DAILY@0830 [facility] Last Admin: 04/30/17 08:21 Dose: 0.4 mg - Objective Vital Signs: Vital Signs Temperature 98.1 F 04/30/17 06:00 Pulse Rate 79 04/30/17 06:00 Respiratory Rate 18 04/30/17 06:00 Blood Pressure 121/68 04/30/17 06:00 O2 Sat by Pulse Oximetry (%) 94 L 04/29/17 22:00 Constitutional: Yes: No Distress Eyes: Yes: WNL HENT: Yes: WNL Neck: Yes: WNL Cardiovascular: Yes: Regular Rate and Rhythm Respiratory: Yes: CTA Bilaterally Gastrointestinal: Yes: WNL Genitourinary: Yes: Hopper Present, Hematuria, Polyuria Musculoskeletal: Yes: WNL Extremities: Yes: WNL Neurological: Yes: Alert Labs: CBC, BMP 04/30/17 06:20 04/30/17 06:20 INR, PTT INR 2.05 (0.82-1.09) H 04/29/17 05:38 CBC, [facility] 04/30/17 06:20 04/30/17 06:20 Microbiology 04/28/17 21:24 Urine - Urine Clean Catch Urine Culture - Preliminary Lactose Fermenting Neg Bacilli 04/28/17 21:10 Blood - Peripheral Venous Blood Culture - Preliminary Lactose Fermenting Neg Bacilli 04/28/17 21:47 Blood - Peripheral Venous Blood Culture - Preliminary NO GROWTH OBTAINED AFTER 24 HOURS, INCUBATION TO CONTINUE FOR 4 DAYS. Problem List - Problems (1) UTI (urinary tract infection) Code(s): N39.0 - URINARY TRACT INFECTION, SITE NOT SPECIFIED Qualifiers: Urinary tract infection type: site unspecified Hematuria presence: with hematuria Qualified Code(s): N39.0 - Urinary tract infection, site not specified (2) Sepsis due to Gram negative bacteria Code(s): A41.50 - GRAM-NEGATIVE SEPSIS, UNSPECIFIED (3) Bacteremia Code(s): R78.81 - BACTEREMIA (4) Leukocytosis Code(s): D72.829 - ELEVATED WHITE BLOOD CELL COUNT, UNSPECIFIED (5) Acute kidney injury Code(s): N17.9 - ACUTE KIDNEY FAILURE, UNSPECIFIED Assessment/Plan Pt currently stable wbc trending down, continue monitor continue antibiotics f/u results of urine/blood cultures
--- NOTE | 2017-04-30 13:05 | PN ---
Progres Note Chief Complaint: events noted. chart reviwed. pt with urosepsis/uti on abx. feels better. wbc down trending. d/c coleman in am. bun/cr 20/1.5 - Objective Vital Signs: Vital Signs Temperature 97.5 F L 04/30/17 10:00 Pulse Rate 86 04/30/17 10:00 Respiratory Rate 18 04/30/17 10:00 Blood Pressure 126/80 04/30/17 10:00 O2 Sat by Pulse Oximetry (%) 99 04/30/17 09:00 Labs/Additional Data: CBC, BMP 04/30/17 06:20 04/30/17 06:20 INR, PTT INR 2.05 (0.82-1.09) H 04/29/17 05:38 Blood Type Blood Type AB NEGATIVE 04/29/17 00:18 Antibody Screen Negative 04/28/17 21:24 Assessment/Plan uti cont with medical managment and abx no surgical intervention at this time
[2017-04-30] MEDS: ACETAMINOPHEN 325 MG TABLET (FP) PO PRN (17:17)
[2017-05-01 07:09] LABS: BASOPHIL 0.4 % (0-2.0); MCH 26.6 pg (25.7-33.7); MCHC 32.2 g/dl (32.0-35.9); MEAN CELL VOLUME 82.6 fl (80-96); MEAN PLT VOLUME 10.1 fl (7.5-11.1); NEUTROPHILS 81.3 % (42.8-82.8); PLATELET COUNT 84 K/MM3 (134-434); WHITE BLOOD COUNT 12.8 K/mm3 (4.0-10.0)
[2017-05-01 07:53] LABS: GLUCOSE,RANDOM 150 mg/dL (74-106)
[2017-05-01 07:55] LABS: ANION GAP 6 (8-16); CALCIUM 8.4 mg/dL (8.5-10.1); CO2 25 mmol/L (21-32); CREATININE 1.5 mg/dL (0.7-1.3)
--- NOTE | 2017-05-01 07:57 | PN ---
Physical Exam: SUBJECTIVE: Patient seen and examined The patient is a 56-year-old man with a history of bipolar disorder, BPH, urinary incontinence who presented to the ER with sepsis of a presumed urological sourse s/p a urological procedure. OBJECTIVE: Vital Signs Period Temp Pulse Resp BP Sys/Ospina Pulse Ox Last 24 Hr 97.5 F-101.6 F 72-88 18-20 117-132/57-80 96-99 HEART: S1S2, RRR LUNGS: Clear ABDOMEN: Soft, obese, non-tender, non-distended, normal BS EXTREMITIES: No edema Laboratory Results - last 24 hr 04/30/17 05/01/17 06:20 06:30 WBC 12.8 H RBC 4.61 Hgb 12.3 Hct 38.1 MCV 82.6 MCH 26.6 MCHC 32.2 RDW 16.0 H Plt Count 84 L MPV 10.1 Neutrophils % 81.3 Lymphocytes % 6.3 L Monocytes % 9.0 Eosinophils % 3.0 D Basophils % 0.4 Sodium 143 Potassium 4.5 Chloride 115 H Carbon Dioxide 23 Anion Gap 5 L BUN 20 H Creatinine 1.5 H D Random Glucose 121 H Calcium 8.1 L Active Medications Generic Name Dose Route Start Last Admin Trade Name Freq PRN Reason Stop Dose Admin Acetaminophen 650 mg 04/28/17 23:45 04/30/17 17:17 Tylenol - PO 650 mg Q6H PRN Administration PAIN SCALE 6-10 Meropenem 1 gm/ Dextrose 100 mls @ 100 mls/hr 04/29/17 10:00 04/30/17 21:35 IVPB 100 mls/hr BID ANT Administration Protocol Sodium Chloride 1,000 mls @ 100 mls/hr 04/28/17 23:45 04/30/17 00:38 Normal Saline - IV 100 mls/hr ASDIR ANT Administration [place] Carbonate 450 mg 04/29/17 10:00 04/30/17 21:36 Eskalith - PO 450 mg BID ANT Administration Ondansetron HCl 4 mg 04/28/17 23:24 Zofran Injection IVPB Q6H PRN NAUSEA Tamsulosin HCl 0.4 mg 04/29/17 08:30 04/30/17 08:21 Flomax - PO 0.4 mg DAILY@0830 ANT Administration ASSESSMENT/PLAN: #ID Sepsis secondary to UTI and gram negative bacteremia after urodynamic studies Afebrile; leukocytosis improving; tachycardia improved Continue Meropenem Continue IV fluid Follow up culture ID and sensitivities - 1/2BC and UC growing lactose fermenting GN bacilli Appreciate ID input #RENAL Acute kidney injury, likely secondary to sepsis, possible obstruction from BPH Creatinine improving, though 1.5 yesterday and today Will dc NS and begin maintenance fluid of D51/2NS at 125ml/hr Will follow creatinine closely Continue Flomax #PSYCH/NEURO Acute metabolic encephalopathy (resolved) Bipolar disorder Continue [place] # BPH with urinary incontinence Continue Flomax Appreciate consult input Will dc Hopper #FEN Regular diet Maintenance fluids as above #Proph Eating and ambulating Visit type - Emergency Visit Emergency Visit: Yes ED Registration Date: 04/28/17 Care time: The patient presented to the Emergency Department on the above date and was hospitalized for further evaluation of their emergent condition. - New Patient This patient is new to me today: Yes Date on this admission: 05/01/17 - Critical Care Critical Care patient: No
[2017-05-01] MEDS: TAMSULOSIN HCL 0.4 MG CAP.ER.24H (FP) PO SCH (08:45)
[2017-05-01] MEDS: DEXTROSE 5%-0.45% SALINE 1,000 ML IV SCH (08:46)
[2017-05-01] MEDS ORDERED: PT OWN MED DRAWER 7, Y5N ONE ×2 (09:00→20:59)
[2017-05-01] MEDS: LITHIUM CARBONATE 450 MG TABLET.ER PO SCH ×2 (09:16→21:00)
[2017-05-01] MEDS: MEROPENEM 1 GM in DEXTROSE 5%-WATER - 100 ML IVPB SCH (10:11)
[2017-05-01] MEDS: ACETAMINOPHEN 325 MG TABLET (FP) PO PRN ×2 (12:40→20:27)
--- NOTE | 2017-05-01 16:59 | HOSP ---
Subjective - Review of Symptoms Subjective: Addendum The patient developed urinary retention after coleman discontinuation. Bladder scan showed 900ml. Urology placed coleman successfully. Physical Examination Vital Signs: Vital Signs Temperature 98.5 F 05/01/17 10:00 Pulse Rate 83 05/01/17 10:00 Respiratory Rate 20 05/01/17 10:00 Blood Pressure 117/66 05/01/17 10:00 O2 Sat by Pulse Oximetry (%) 97 05/01/17 09:00 Labs: CBC, BMP 05/01/17 06:30 05/01/17 06:30
--- NOTE | 2017-05-01 19:38 | PN ---
Progress Note, Physician History of Present Illness: Pt states he feels better Denies chills, pain No current distress - Current Medication List Current Medications: Active Medications Acetaminophen (Tylenol -) 650 mg PO Q6H PRN PRN Reason: PAIN SCALE 6-10 Last Admin: 05/01/17 12:40 Dose: 650 mg Meropenem 1 gm/ Dextrose 100 mls @ 100 mls/hr IVPB BID [facility] PRN Reason: Protocol Last Admin: 05/01/17 10:11 Dose: 100 mls/hr Dextrose/Sodium Chloride (D5-1/2ns -) 1,000 mls @ 125 mls/hr IV ASDIR [facility] Last Admin: 05/01/17 08:46 Dose: 125 mls/hr [place] Carbonate (Eskalith -) 450 mg PO BID [facility] Last Admin: 05/01/17 09:16 Dose: 450 mg Ondansetron HCl (Zofran Injection) 4 mg IVPB Q6H PRN PRN Reason: NAUSEA Tamsulosin HCl (Flomax -) 0.4 mg PO DAILY@0830 [facility] Last Admin: 05/01/17 08:45 Dose: 0.4 mg - Objective Vital Signs: Vital Signs Temperature 99.6 F 05/01/17 18:31 Pulse Rate 67 05/01/17 18:31 Respiratory Rate 20 05/01/17 18:31 Blood Pressure 102/51 05/01/17 18:31 O2 Sat by Pulse Oximetry (%) 97 05/01/17 09:00 Constitutional: Yes: No Distress Cardiovascular: Yes: Regular Rate and Rhythm Respiratory: Yes: CTA Bilaterally Gastrointestinal: Yes: Normal Bowel Sounds, Soft Genitourinary: Yes: Hopper Present, Hematuria Integumentary: Yes: WNL Neurological: Yes: Alert Psychiatric: Yes: WNL, Alert Labs: CBC, BMP 05/01/17 06:30 05/01/17 06:30 INR, PTT INR 2.05 (0.82-1.09) H 04/29/17 05:38 Microbiology 04/28/17 21:24 Urine - Urine Clean Catch Urine Culture - Final Escherichia Coli 04/28/17 21:10 Blood - Peripheral Venous Blood Culture - Final Klebsiella Pneumoniae 04/28/17 21:47 Blood - Peripheral Venous Blood Culture - Preliminary NO GROWTH OBTAINED AFTER 48 HOURS, INCUBATION TO CONTINUE FOR 3 DAYS. Problem List - Problems (1) UTI (urinary tract infection) Code(s): N39.0 - URINARY TRACT INFECTION, SITE NOT SPECIFIED Qualifiers: Urinary tract infection type: site unspecified Hematuria presence: with hematuria Qualified Code(s): N39.0 - Urinary tract infection, site not specified (2) Sepsis due to Gram negative bacteria Code(s): A41.50 - GRAM-NEGATIVE SEPSIS, UNSPECIFIED (3) Bacteremia Code(s): R78.81 - BACTEREMIA (4) Leukocytosis Code(s): D72.829 - ELEVATED WHITE BLOOD CELL COUNT, UNSPECIFIED (5) Acute kidney injury Code(s): N17.9 - ACUTE KIDNEY FAILURE, UNSPECIFIED (6) Obstructive uropathy Code(s): N13.9 - OBSTRUCTIVE AND REFLUX UROPATHY, UNSPECIFIED Assessment/Plan E. Coli UTI Klebsiella bacteremia Sepsis -- pt clinically improving, wbc improved -- d/c Meropenem , start Ceftriaxone IV -- repeat blood cultures -- followed by urology -- continue monitor vitals pt clinically stable at this time
[2017-05-01] MEDS: diphenhydrAMINE HCL 25 MG CAPSULE (FP) PO PRN (21:00)
[2017-05-02] MEDS ORDERED: ACETAMINOPHEN 325 MG TABLET (FP) PO ONE (01:21)
[2017-05-02 07:33] LABS: BASOPHIL 0.5 % (0-2.0); EOSINOPHIL 1.8 % (0-4.5); MCH 26.6 pg (25.7-33.7); MCHC 32.5 g/dl (32.0-35.9); MEAN CELL VOLUME 81.8 fl (80-96); MEAN PLT VOLUME 10.2 fl (7.5-11.1); NEUTROPHILS 78.5 % (42.8-82.8); PLATELET COUNT 93 K/MM3 (134-434); RDW 16.1 % (11.9-15.9); WHITE BLOOD COUNT 12.7 K/mm3 (4.0-10.0)
[2017-05-02 07:39] LABS: ANION GAP 6 (8-16); CALCIUM 8.8 mg/dL (8.5-10.1); CO2 25 mmol/L (21-32); CREATININE 1.7 mg/dL (0.7-1.3); GLUCOSE,RANDOM 136 mg/dL (74-106); MAGNESIUM 1.7 mg/dL (1.8-2.4); PHOSPHOROUS 3.1 mg/dL (2.5-4.9)
[2017-05-02] MEDS ORDERED: PT OWN MED DRAWER 7, Y5N ONE ×3 (08:39→21:07)
[2017-05-02] MEDS: TAMSULOSIN HCL 0.4 MG CAP.ER.24H (FP) PO SCH (09:14)
[2017-05-02] MEDS: ACETAMINOPHEN 325 MG TABLET (FP) PO PRN ×2 (09:14→16:58)
[2017-05-02] MEDS: DEXTROSE 5%-0.45% SALINE 1,000 ML IV SCH ×3 (09:15→21:11)
[2017-05-02] MEDS: LITHIUM CARBONATE 450 MG TABLET.ER PO SCH ×2 (09:17→21:10)
--- NOTE | 2017-05-02 09:54 | PN ---
Progress Note (short form) - Note Progress Note: pt with recurrent retention greater 1000 cc retention trial at voiding failed place pt on flomax abx as per medicine pt needs outpt uds cysto possible tuvp d/c when stable with coleman
[2017-05-02] MEDS ORDERED: CEFTRIAXONE 100 ML IVPB SCH (10:00)
--- NOTE | 2017-05-02 11:09 | PN ---
Teaching Attending Note Name of Resident: Marilee Peralta ATTENDING PHYSICIAN STATEMENT I saw and evaluated the patient. I reviewed the resident's note and discussed the case with the resident. I agree with the resident's findings and plan as documented. SUBJECTIVE: No complaints. OBJECTIVE: Vitals noted He was febrile overnight ASSESSMENT AND PLAN: Continue antibiotics Follow cultures Appreciate ID input See resident note for full details
--- NOTE | 2017-05-02 13:35 | PN ---
Progress Note, Physician History of Present Illness: patient doing well at the moment had spiked temperature last night repeat blood cx send again showing bacteremia - Current Medication List Current Medications: Active Medications Acetaminophen (Tylenol -) 650 mg PO Q6H PRN PRN Reason: PAIN SCALE 6-10 Last Admin: 05/02/17 09:14 Dose: 650 mg Diphenhydramine HCl (Benadryl -) 25 mg PO Q6H PRN PRN Reason: FOR ITCHING Last Admin: 05/01/17 21:00 Dose: 25 mg Dextrose/Sodium Chloride (D5-1/2ns -) 1,000 mls @ 125 mls/hr IV ASDIR [facility] Last Admin: 05/02/17 12:08 Dose: 125 mls/hr Ceftriaxone Sodium (Rocephin 2gm Ivpb (Pre-Docked)) 100 mls @ 200 mls/hr IVPB DAILY [facility] Last Admin: 05/02/17 09:15 Dose: 200 mls/hr [place] Carbonate (Eskalith -) 450 mg PO BID [facility] Last Admin: 05/02/17 09:17 Dose: 450 mg Ondansetron HCl (Zofran Injection) 4 mg IVPB Q6H PRN PRN Reason: NAUSEA Tamsulosin HCl (Flomax -) 0.4 mg PO DAILY@0830 [facility] Last Admin: 05/02/17 09:14 Dose: 0.4 mg - Objective Vital Signs: Vital Signs Temperature 99 F 05/02/17 10:51 Pulse Rate 72 05/02/17 09:15 Respiratory Rate 20 05/02/17 09:15 Blood Pressure 127/57 05/02/17 09:15 O2 Sat by Pulse Oximetry (%) 97 05/01/17 21:00 Constitutional: Yes: No Distress, Calm HENT: Yes: Atraumatic, Normocephalic Cardiovascular: Yes: Regular Rate and Rhythm Respiratory: Yes: Regular, CTA Bilaterally Gastrointestinal: Yes: Normal Bowel Sounds, Soft Genitourinary: Yes: Hopper Present Musculoskeletal: Yes: WNL Extremities: Yes: WNL Integumentary: Yes: WNL Labs: CBC, BMP 05/02/17 06:30 05/02/17 06:30 INR, PTT INR 2.05 (0.82-1.09) H 04/29/17 05:38 Assessment/Plan 56yo M with dysuria, polyuria, and slightly altered per fiance for the past 2 days s/p urological procedure. Meropenem therapy initiated. Urine Cx, Blood culture x2 collected. 1) Sepsis secondary to UTI, complicated 2) Altered mental status 3) JEAN suspected vs CKD 4) History Bipolar disorder 5) BPH suspected 6 bacteremia gm negative 7 leukocytosis plan hydration close watch on urine output will stop ceftriaxone restart meropenam await for identification of the organism
--- NOTE | 2017-05-02 16:19 | PN ---
Physical Exam: SUBJECTIVE: Patient seen and examined at bedside. Pt states that he does not have any abdominal pain and is "feeling better" today. He was febrile overnight with Tmax 102.9 and given Tylenol. Blood cx were sent by night team. As per nurse, he was given ice packs this morning and his temp was down to 99F. Denies SOB, dysuria, or abdominal pain. Hopper draining. OBJECTIVE: Vital Signs Period Temp Pulse Resp BP Sys/Ospina Pulse Ox Last 24 Hr 99 F-102.9 F 67-97 20-20 102-146/51-73 97 GENERAL: The patient is awake, alert, and fully oriented, in no acute distress. HEAD: Normal with no signs of trauma. EYES: PERRL, extraocular movements intact, sclera anicteric, conjunctiva clear. NECK: Trachea midline, supple. LUNGS: Breath sounds equal, clear to auscultation bilaterally, no wheezes, no crackles, no accessory muscle use. HEART: Regular rate and rhythm, S1, S2 without murmur, rub or gallop. ABDOMEN: Soft, nontender, nondistended, normoactive bowel sounds, no guarding, no rebound EXTREMITIES: 2+ posterior tibial pulses, warm, well-perfused, no edema. NEUROLOGICAL: Cranial nerves II through XII grossly intact. Laboratory Results - last 24 hr 05/02/17 05/02/17 06:30 06:30 WBC 12.7 H RBC 4.78 Hgb 12.7 Hct 39.2 MCV 81.8 MCH 26.6 MCHC 32.5 RDW 16.1 H Plt Count 93 L MPV 10.2 Neutrophils % 78.5 Lymphocytes % 7.5 L Monocytes % 11.7 H Eosinophils % 1.8 Basophils % 0.5 Sodium 140 Potassium 4.2 Chloride 109 H Carbon Dioxide 25 Anion Gap 6 L BUN 17 Creatinine 1.7 H Random Glucose 136 H Calcium 8.8 Phosphorus 3.1 Magnesium 1.7 L Active Medications Generic Name Dose Route Start Last Admin Trade Name Freq PRN Reason Stop Dose Admin Acetaminophen 650 mg 04/28/17 23:45 05/02/17 09:14 Tylenol - PO 650 mg Q6H PRN Administration PAIN SCALE 6-10 Diphenhydramine HCl 25 mg 05/01/17 20:38 05/01/17 21:00 Benadryl - PO 25 mg Q6H PRN Administration FOR ITCHING Dextrose/Sodium Chloride 1,000 mls @ 125 mls/hr 05/01/17 08:15 05/02/17 12:08 D5-1/2ns - IV 125 mls/hr ASDIR ANT Administration Ceftriaxone Sodium 100 mls @ 200 mls/hr 05/02/17 10:00 05/02/17 09:15 Rocephin 2gm Ivpb (Pre-Docked) IVPB 200 mls/hr DAILY ANT Administration [place] Carbonate 450 mg 04/29/17 10:00 05/02/17 09:17 Eskalith - PO 450 mg BID ANT Administration Ondansetron HCl 4 mg 04/28/17 23:24 Zofran Injection IVPB Q6H PRN NAUSEA Tamsulosin HCl 0.4 mg 04/29/17 08:30 05/02/17 09:14 Flomax - PO 0.4 mg DAILY@0830 ANT Administration ASSESSMENT/PLAN: This is a 56 yr old M with PMH of bipolar disorder (on [place]) and BPH s/p urodynamic testing and instrumentation, who presented to the ED for incontinence , dysuria, and polyuria for 2 days. Pt is admitted for sepsis secondary to UTI. # sepsis secondary to complicated UTI from E.coli (and Klebsiella bacteremia) -Leukocytosis improved to 12.7 -Meropenem d/c, completed 3 day course -Pt febrile last night, 102.9F fever, so blood cx sent by night team- returned: + for gram negative bacilli -Ceftriaxone 2 grams IVPB - today is Day1 (E.coli and klebsiella sensitive) #JEAN vs. CKD -BUN/Cr improved to 17/1.7 (WNL) -Pt on D5 1/2 NS @ 125 cc's/hr #Bipolar disorder -Continue [place] 450mg PO BID # BPH -Continue Flomax 0.4 mg PO -Hopper catheter in place -Dr. Negro on board #Altered mental status-resolved #DVT propylaxis -SCD's F/E/N D5w @ 125 cc/hr monitor electrolytes regular diet Dispo -Once afebrile 24 hrs, can send him out w/Hopper and have him f/u with Urology in 1 wk Visit type - Emergency Visit Emergency Visit: No - New Patient This patient is new to me today: No - Critical Care Critical Care patient: No
[2017-05-02] MEDS: MEROPENEM 1 GM in DEXTROSE 5%-WATER - 100 ML IVPB SCH (17:32)
[2017-05-02] MEDS: MAGNESIUM CL 64 MG TABLET.SA PO SCH (21:10)
[2017-05-03] MEDS ORDERED: PT OWN MED DRAWER 7, Y5N ONE ×4 (01:00→21:16)
[2017-05-03] MEDS: MEROPENEM 1 GM in DEXTROSE 5%-WATER - 100 ML IVPB SCH ×3 (01:29→17:37)
[2017-05-03] MEDS: ACETAMINOPHEN 325 MG TABLET (FP) PO PRN ×2 (01:35→14:03)
[2017-05-03] MEDS: DEXTROSE 5%-0.45% SALINE 1,000 ML IV SCH (07:20)
[2017-05-03 07:39] LABS: MCHC 33.3 g/dl (32.0-35.9); MEAN CELL VOLUME 81.2 fl (80-96); MEAN PLT VOLUME 10.1 fl (7.5-11.1); PLATELET COUNT 77 K/MM3 (134-434); RDW 16.2 % (11.9-15.9); WHITE BLOOD COUNT 11.6 K/mm3 (4.0-10.0)
[2017-05-03 07:43] LABS: ANION GAP 4 (8-16); CALCIUM 8.2 mg/dL (8.5-10.1); CO2 24 mmol/L (21-32); CREATININE 1.5 mg/dL (0.7-1.3); GLUCOSE,RANDOM 146 mg/dL (74-106)
[2017-05-03] MEDS: TAMSULOSIN HCL 0.4 MG CAP.ER.24H (FP) PO SCH (09:41)
[2017-05-03] MEDS: LITHIUM CARBONATE 450 MG TABLET.ER PO SCH ×2 (09:42→21:24)
[2017-05-03] MEDS: MAGNESIUM CL 64 MG TABLET.SA PO SCH (09:42)
[2017-05-03 10:09] LABS: METAMYELOCYTE 1 % (0-2)
[2017-05-03 10:10] LABS: PLATELET COMMENT2 FEW LARGE PLTS; PLATELET ESTIMATE DECREASED (NORMAL)
--- NOTE | 2017-05-03 13:47 | PN ---
Teaching Attending Note Name of Resident: Ramiro Chester ATTENDING PHYSICIAN STATEMENT I saw and evaluated the patient. I reviewed the resident's note and discussed the case with the resident. I agree with the resident's findings and plan as documented. SUBJECTIVE:c/o chills this AM. states he was feverish last night and that his fever broke this AM and been experiencing diaphoresis and chills since then. denies CP, SOB, dysuria, urinary frequency, N/V/C/D OBJECTIVE: Last Vital Signs Temp Pulse Resp BP Pulse Ox 102.8 F H 63 20 136/76 98 05/03/17 13:25 05/03/17 09:45 05/03/17 09:45 05/03/17 09:45 05/02/17 21:00 General NAD CV S1 S2 RRR no murmur/rub/gallop Lungs CTA B/L no wheezing/rales/rhonchi Abdomen soft NT/ND no CVA tenderness no suprapubic tenderness ASSESSMENT AND PLAN: 56-year-old man with a history of bipolar disorder, BPH, urinary incontinence who presented to the ER with dysuria, polyuria, and confusion. 1. Sepsis secondary to UTI and gram negative bacteremia after urodynamic studies - Tm 102. intermittent fever spikes and abx switched to Meropenem last night from Ceftriaxone. Repeat Bcx growing GNR. will need to repeat tomorrow. 2. Acute metabolic encephalopathy secondary to sepsis- Resolved 3. Acute kidney injury secondary to sepsis, possible obstruction from BPH- will need to obtain baseline kidney function. continuing to improve. avoid nephrotoxic agents. 4. Bipolar disorder- Continue [place] 5. BPH with urinary incontinence- urinary retention. coleman placed back by urology.will maintain for now. cont flomax. will need to f/u as outpatient 6. hypomagnesemia-Mg daily 7. Thrombocytopenia- likely due to sepsis? no previous labs to compare. call PMD to obtain baseline values 8. DVT ppx- SCD/ hold pharmacologic ppx due to thrombocytopenia
--- NOTE | 2017-05-03 15:39 | PN ---
Physical Exam: SUBJECTIVE: Patient seen and examined at bedside. Tmax 102F last night. Currently afebrile. Pt denies abdominal pain, suprapubic tenderness, dysuria, or any other complaints. OBJECTIVE: Vital Signs Period Temp Pulse Resp BP Sys/[place]spina Pulse Ox Last 24 Hr 98.2 F-102.8 F 60-80 16-20 100-144/48-76 98 GENERAL: The patient is awake, alert, and fully oriented, in no acute distress. Mildly diaphoretic HEAD: Normal with no signs of trauma. EYES: PERRL, extraocular movements intact, sclera anicteric, conjunctiva clear. NECK: Trachea midline, full range of motion, supple. LUNGS: Breath sounds equal, clear to auscultation bilaterally, no wheezes, no crackles, no accessory muscle use. HEART: Regular rate and rhythm, S1, S2 without murmur, rub or gallop. ABDOMEN: Soft, nontender, nondistended, normoactive bowel sounds, no guarding, no rebound EXTREMITIES: 2+ posterior tibial pulses, warm, well-perfused, no edema. NEUROLOGICAL: Cranial nerves II through XII grossly intact. No tremor noted Laboratory Results - last 24 hr 05/03/17 05/03/17 06:40 06:40 WBC 11.6 H RBC 4.32 Hgb 11.7 Hct 35.1 L MCV 81.2 MCH 27.0 MCHC 33.3 RDW 16.2 H Plt Count 77 L MPV 10.1 Neutrophils % 66.0 Lymphocytes % 11.0 D Monocytes % 15.0 H Eosinophils % 2.0 Basophils % 0.0 Band Neutrophils 3.0 D Metamyelocytes 1 Myelocytes 1 Differential Comment Manual diff done Reactive Lymphocytes 1 Platelet Estimate Decreased Platelet Comment Few large plts Sodium 142 Potassium 4.4 Chloride 114 H Carbon Dioxide 24 Anion Gap 4 L BUN 17 Creatinine 1.5 H Random Glucose 146 H Calcium 8.2 L Active Medications Generic Name Dose Route Start Last Admin Trade Name Freq PRN Reason Stop Dose Admin Acetaminophen 650 mg 04/28/17 23:45 05/03/17 14:03 Tylenol - PO 650 mg Q6H PRN Administration PAIN SCALE 6-10 Diphenhydramine HCl 25 mg 05/01/17 20:38 05/01/17 21:00 Benadryl - PO 25 mg Q6H PRN Administration FOR ITCHING Meropenem 1 gm/ Dextrose 100 mls @ 200 mls/hr 05/02/17 18:00 05/03/17 09:41 IVPB 200 mls/hr Q8H-IV ANT Administration [place] Carbonate 450 mg 04/29/17 10:00 05/03/17 09:42 Eskalith - PO 450 mg BID ANT Administration Magnesium Chloride 64 mg 05/02/17 19:15 05/03/17 09:42 Slow-Mag - PO 64 mg DAILY ANT Administration Ondansetron HCl 4 mg 04/28/17 23:24 Zofran Injection IVPB Q6H PRN NAUSEA Tamsulosin HCl 0.4 mg 04/29/17 08:30 05/03/17 09:41 Flomax - PO 0.4 mg DAILY@0830 ANT Administration ASSESSMENT/PLAN: This is a 56 yr old M with PMH of bipolar disorder (on [place]) and BPH s/p urodynamic testing and instrumentation, who presented to the ED for incontinence , dysuria, and polyuria for 2 days. Pt is admitted for sepsis secondary to UTI. # sepsis secondary to complicated UTI from E.coli (and Klebsiella bacteremia) -Leukocytosis improved to 11.6 -Ceftriaxone has been d/c -Continue Meropenem 1gm (Day 2) -F/u blood cx tomorrow #Thrombocytopenia -As per pt, he has only seen Dr. Negro, has no PCP - platelets 228 (baseline June 2016) -Need to determine cause, possibly d/t sepsis #Hypomagnesemia -F/u Magnesium level -Supplement with Mg Cl 64mg qdaily #JEAN vs. CKD-resolved -BUN/Cr improved - WNL -Pt on D5 /2 NS @ 125 cc's/hr #Bipolar disorder -Continue [place] 450mg PO BID # BPH -Continue Flomax 0.4 mg PO -Hopper in place -Dr. Negro on board #Altered mental status-resolved #DVT propylaxis -SCD's F/E/N D5w @ 125 cc/hr monitor electrolytes regular diet Dispo -Once afebrile 24 hrs, can send him out w/Hopper and have him f/u with Urology in 1 wk Visit type - Emergency Visit Emergency Visit: No - New Patient This patient is new to me today: No - Critical Care Critical Care patient: No
--- NOTE | 2017-05-03 16:14 | PN ---
Progress Note, Physician History of Present Illness: patient continues to spike fever currently feels well repeat blood cx positive again denies any other issues or back pain or pain in any part of the body denies headache nausea a or vomiting - Current Medication List Current Medications: Active Medications Acetaminophen (Tylenol -) 650 mg PO Q6H PRN PRN Reason: PAIN SCALE 6-10 Last Admin: 05/03/17 14:03 Dose: 650 mg Diphenhydramine HCl (Benadryl -) 25 mg PO Q6H PRN PRN Reason: FOR ITCHING Last Admin: 05/01/17 21:00 Dose: 25 mg Meropenem 1 gm/ Dextrose 100 mls @ 200 mls/hr IVPB Q8H-IV ANT Last Admin: 05/03/17 09:41 Dose: 200 mls/hr [place] Carbonate (Eskalith -) 450 mg PO BID [facility] Last Admin: 05/03/17 09:42 Dose: 450 mg Magnesium Chloride (Slow-Mag -) 64 mg PO DAILY [facility] Last Admin: 05/03/17 09:42 Dose: 64 mg Ondansetron HCl (Zofran Injection) 4 mg IVPB Q6H PRN PRN Reason: NAUSEA Tamsulosin HCl (Flomax -) 0.4 mg PO DAILY@0830 [facility] Last Admin: 05/03/17 09:41 Dose: 0.4 mg - Objective Vital Signs: Vital Signs Temperature 100.8 F H 05/03/17 15:24 Pulse Rate 80 05/03/17 15:24 Respiratory Rate 20 05/03/17 15:24 Blood Pressure 144/60 05/03/17 15:24 O2 Sat by Pulse Oximetry (%) 98 05/02/17 21:00 Constitutional: Yes: No Distress, Calm Cardiovascular: Yes: Regular Rate and Rhythm Respiratory: Yes: Regular, CTA Bilaterally Gastrointestinal: Yes: Normal Bowel Sounds, Soft Genitourinary: Yes: Hopper Present Musculoskeletal: Yes: WNL Extremities: Yes: WNL Neurological: Yes: Alert, Oriented Psychiatric: Yes: Alert, Oriented Labs: CBC, BMP 05/03/17 06:40 05/03/17 06:40 INR, PTT INR 2.05 (0.82-1.09) H 04/29/17 05:38 Assessment/Plan 1) Sepsis secondary to UTI, complicated 2) Altered mental status 3) JEAN suspected vs CKD 4) History Bipolar disorder 5) BPH suspected 6 bacteremia gm negative 7 leukocytosis plan hydration close watch on urine output conitnue abx will order an echo continue monitoring fevers repeat blood cx tomorrow
[2017-05-03] MEDS: diphenhydrAMINE HCL 25 MG CAPSULE (FP) PO PRN (17:39)
[2017-05-04] MEDS ORDERED: PT OWN MED DRAWER 7, Y5N ONE ×2 (01:07→20:30)
[2017-05-04] MEDS: MEROPENEM 1 GM in DEXTROSE 5%-WATER - 100 ML IVPB SCH ×2 (01:12→09:27)
[2017-05-04 08:05] LABS: MCH 26.3 pg (25.7-33.7); MCHC 32.3 g/dl (32.0-35.9); MEAN CELL VOLUME 81.4 fl (80-96); MEAN PLT VOLUME 10.5 fl (7.5-11.1); PLATELET COUNT 101 K/MM3 (134-434); RDW 16.2 % (11.9-15.9); WHITE BLOOD COUNT 10.6 K/mm3 (4.0-10.0)
[2017-05-04 08:24] LABS: ANION GAP 7 (8-16); CALCIUM 8.8 mg/dL (8.5-10.1); CO2 23 mmol/L (21-32); CREATININE 1.4 mg/dL (0.7-1.3); GLUCOSE,RANDOM 147 mg/dL (74-106); MAGNESIUM 1.8 mg/dL (1.8-2.4)
[2017-05-04] MEDS: TAMSULOSIN HCL 0.4 MG CAP.ER.24H (FP) PO SCH ×2 (08:43→21:15)
[2017-05-04] MEDS: LITHIUM CARBONATE 450 MG TABLET.ER PO SCH ×2 (09:26→21:15)
[2017-05-04] MEDS: MAGNESIUM CL 64 MG TABLET.SA PO SCH (09:26)
--- NOTE | 2017-05-04 13:39 | PN ---
Teaching Attending Note Name of Resident: Ramiro Chester ATTENDING PHYSICIAN STATEMENT I saw and evaluated the patient. I reviewed the resident's note and discussed the case with the resident. I agree with the resident's findings and plan as documented. SUBJECTIVE:clinically improved. no longer having chills. denies CP, SOB, fever, N/V/C/D, dysuria or urinary urgency OBJECTIVE: Last Vital Signs Temp Pulse Resp BP Pulse Ox 98.4 F 59 L 17 157/78 97 05/04/17 09:00 05/04/17 09:00 05/04/17 09:00 05/04/17 09:00 05/04/17 09:00 General NAD CV S1 S2 RRR no murmur/rub/gallop Lungs CTA B/L no wheezing/rales/rhonchi Abdomen soft NT/ND no CVA tenderness no suprapubic tenderness ASSESSMENT AND PLAN: 56-year-old man with a history of bipolar disorder, BPH, urinary incontinence who presented to the ER with dysuria, polyuria, and confusion. 1. Sepsis secondary to UTI and gram negative bacteremia after urodynamic studies - Tm 102.8. on Meropenem day 2. repeat BCx growing Klebsiella. repeat BCx sent today. ehco pending. ID onboard. 2. Acute metabolic encephalopathy secondary to sepsis- Resolved 3. Acute kidney injury secondary to sepsis, possible obstruction from BPH- will need to obtain baseline kidney function. continuing to improve. avoid nephrotoxic agents. 4. Bipolar disorder- Continue [place] 5. BPH with urinary incontinence- urinary retention. coleman placed back by urology.will maintain for now. cont flomax. will need to f/u as outpatient 6. hypomagnesemia-Mg daily 7. Thrombocytopenia- likely due to sepsis? now improving. according to PMD last platelet count was 228. 8. DVT ppx- SCD/ hold pharmacologic ppx due to thrombocytopenia. consider starting tomorrow if plt count remains stable
--- NOTE | 2017-05-04 14:10 | PN ---
Physical Exam: SUBJECTIVE: Patient seen and examined at bedside today. Endorses intermittent dysuria, but denies suprapubic tenderness, abdominal or chest pain. Last fever 3 :30pm yesterday Tmax 102.8F. Hopper draining dark urine, slightly tinged with blood. Mild, most likely from Hopper placement. Pt very emotional this morning, spoke about his "journey" and all of its road blocks. OBJECTIVE: Vital Signs Period Temp Pulse Resp BP Sys/Ospina Pulse Ox Last 24 Hr 98.2 F-100.8 F 59-80 17-20 131-157/60-78 94-97 GENERAL: The patient is awake, alert, and fully oriented, in no acute distress. HEAD: Normal with no signs of trauma. EYES: PERRL, extraocular movements intact, sclera anicteric, conjunctiva clear. NECK: Trachea midline, supple. LUNGS: Breath sounds equal, clear to auscultation bilaterally, no wheezes, no crackles, no accessory muscle use. HEART: Regular rate and rhythm, S1, S2 without murmur, rub or gallop. ABDOMEN: Soft, nontender, nondistended, normoactive bowel sounds, no guarding, no rebound EXTREMITIES: 2+ posterior tibial pulses, warm, well-perfused, no edema. NEUROLOGICAL: Cranial nerves II through XII grossly intact. Laboratory Results - last 24 hr 05/04/17 05/04/17 07:47 07:47 WBC 10.6 H RBC 4.46 Hgb 11.7 Hct 36.3 MCV 81.4 MCH 26.3 MCHC 32.3 RDW 16.2 H Plt Count 101 L D MPV 10.5 Sodium 141 Potassium 4.3 Chloride 111 H Carbon Dioxide 23 Anion Gap 7 L BUN 19 H Creatinine 1.4 H Random Glucose 147 H Calcium 8.8 Magnesium 1.8 Active Medications Generic Name Dose Route Start Last Admin Trade Name Freq PRN Reason Stop Dose Admin Acetaminophen 650 mg 04/28/17 23:45 05/03/17 14:03 Tylenol - PO 650 mg Q6H PRN Administration PAIN SCALE 6-10 Diphenhydramine HCl 25 mg 05/01/17 20:38 05/03/17 17:39 Benadryl - PO 25 mg Q6H PRN Administration FOR ITCHING Meropenem 1 gm/ Dextrose 100 mls @ 200 mls/hr 05/02/17 18:00 05/04/17 09:27 IVPB 200 mls/hr Q8H-IV ANT Administration [place] Carbonate 450 mg 04/29/17 10:00 05/04/17 09:26 Eskalith - PO 450 mg BID ANT Administration Magnesium Chloride 64 mg 05/02/17 19:15 05/04/17 09:26 Slow-Mag - PO 64 mg DAILY ANT Administration Ondansetron HCl 4 mg 04/28/17 23:24 Zofran Injection IVPB Q6H PRN NAUSEA Tamsulosin HCl 0.4 mg 04/29/17 08:30 05/04/17 08:43 Flomax - PO 0.4 mg DAILY@0830 ANT Administration ASSESSMENT/PLAN: This is a 56 yr old M with PMH of bipolar disorder (on [place]) and BPH s/p urodynamic testing and instrumentation, who presented to the ED for incontinence , dysuria, and polyuria for 2 days. Pt is admitted for sepsis secondary to UTI. # sepsis secondary to complicated UTI from E.coli (and Klebsiella bacteremia) -Currently afebrile, leukocytosis improved to 10.6 -Continue Meropenem 1gm (Day 3) -05/01/17: Repeat blood cx: Klebsiella -05/04/17: F/u blood cx -F/u ECHO #Thrombocytopenia, possibly d/t sepsis- resolving -As per pt, he has only seen Dr. Negro, has no PCP - platelets 228 (baseline June 2016) -Thrombocytopenia improving- 101 (trending up from 77) #Hypomagnesemia -Mg 1.8 WNL (low normal) -Supplement with Mg Cl 64mg qdaily -Will continue to follow levels #JEAN vs. CKD-resolved -BUN/Cr improved - WNL #Bipolar disorder -Continue [place] 450mg PO BID # BPH -Continue Flomax 0.4 mg PO -Hopper in place -Dr. Negro on board #Altered mental status-resolved #DVT propylaxis -SCD's F/E/N monitor electrolytes regular diet Dispo -Once afebrile 24 hrs, can send him out w/Hopper and have him f/u with Urology in 1 wk Visit type - Emergency Visit Emergency Visit: No - New Patient This patient is new to me today: No - Critical Care Critical Care patient: No
--- NOTE | 2017-05-04 16:43 | PN ---
Progress Note, Physician History of Present Illness: feels much better no new issues - Current Medication List Current Medications: Active Medications Acetaminophen (Tylenol -) 650 mg PO Q6H PRN PRN Reason: PAIN SCALE 6-10 Last Admin: 05/03/17 14:03 Dose: 650 mg Bethanechol Chloride (Urecholine -) 50 mg PO BID [facility] Diphenhydramine HCl (Benadryl -) 25 mg PO Q6H PRN PRN Reason: FOR ITCHING Last Admin: 05/03/17 17:39 Dose: 25 mg Ertapenem 1 gm/ Sodium (Chloride) 50 mls @ 50 mls/hr IVPB DAILY [facility] PRN Reason: Protocol [place] Carbonate (Eskalith -) 450 mg PO BID [facility] Last Admin: 05/04/17 09:26 Dose: 450 mg Magnesium Chloride (Slow-Mag -) 64 mg PO DAILY [facility] Last Admin: 05/04/17 09:26 Dose: 64 mg Ondansetron HCl (Zofran Injection) 4 mg IVPB Q6H PRN PRN Reason: NAUSEA Tamsulosin HCl (Flomax -) 0.[address] [facility] - Objective Vital Signs: Vital Signs Temperature 98.4 F 05/04/17 09:00 Pulse Rate 59 L 05/04/17 09:00 Respiratory Rate 17 05/04/17 09:00 Blood Pressure 157/78 05/04/17 09:00 O2 Sat by Pulse Oximetry (%) 97 05/04/17 09:00 Constitutional: Yes: No Distress, Calm Cardiovascular: Yes: Regular Rate and Rhythm Respiratory: Yes: Regular, CTA Bilaterally Gastrointestinal: Yes: Normal Bowel Sounds, Soft Musculoskeletal: Yes: WNL Extremities: Yes: WNL Neurological: Yes: Alert, Oriented Psychiatric: Yes: Alert, Oriented Labs: CBC, BMP 05/04/17 07:47 05/04/17 07:47 INR, PTT INR 2.05 (0.82-1.09) H 04/29/17 05:38 Assessment/Plan 1) Sepsis secondary to UTI, complicated 2) Altered mental status 3) JEAN suspected vs CKD 4) History Bipolar disorder 5) BPH suspected 6 bacteremia gm negative 7 leukocytosis plan hydration abx changed to ertapenam plan is to remove coleman catheter await for repeat blood cx
[2017-05-04] MEDS: ERTAPENEM SODIUM 1 GM in SODIUM CHLORIDE 50 ML IVPB SCH (17:14)
[2017-05-04] MEDS: BETHANECHOL CHLORIDE 25 MG TABLET PO SCH ×2 (17:15→21:14)
[2017-05-05] MEDS: LITHIUM CARBONATE 450 MG TABLET.ER PO SCH ×2 (09:23→22:37)
[2017-05-05] MEDS: BETHANECHOL CHLORIDE 25 MG TABLET PO SCH ×2 (09:23→22:36)
[2017-05-05] MEDS: MAGNESIUM CL 64 MG TABLET.SA PO SCH (09:24)
[2017-05-05 10:44] LABS: ANION GAP 9 (8-16); CALCIUM 9.3 mg/dL (8.5-10.1); CO2 21 mmol/L (21-32); CREATININE 1.3 mg/dL (0.7-1.3); GLUCOSE,RANDOM 203 mg/dL (74-106)
[2017-05-05] MEDS: ERTAPENEM SODIUM 1 GM in SODIUM CHLORIDE 50 ML IVPB SCH (10:52)
--- NOTE | 2017-05-05 13:19 | PN ---
Teaching Attending Note Name of Resident: Marilee Peralta ATTENDING PHYSICIAN STATEMENT I saw and evaluated the patient. I reviewed the resident's note and discussed the case with the resident. I agree with the resident's findings and plan as documented. SUBJECTIVE:clinically improved. states hes urinated several times since coleman removal this AM. denies CP, SOB, fever, chills, N/V/C/D OBJECTIVE: Last Vital Signs Temp Pulse Resp BP Pulse Ox 98.4 F 72 20 114/72 96 05/05/17 10:00 05/05/17 12:47 05/05/17 10:00 05/05/17 10:00 05/05/17 12:47 General NAD CV S1 S2 RRR no murmur/rub/gallop Lungs CTA B/L no wheezing/rales/rhonchi Abdomen soft NT/ND no CVA tenderness no suprapubic tenderness ASSESSMENT AND PLAN: 56-year-old man with a history of bipolar disorder, BPH, urinary incontinence who presented to the ER with dysuria, polyuria, and confusion. 1. Sepsis secondary to UTI and gram negative bacteremia after urodynamic studies -afebrile 24H. Switched to ertapenem yesterday. Repeat Bcx negative. echo negative for vegetations. ID onboard. 2. Acute metabolic encephalopathy secondary to sepsis- Resolved 3. Acute kidney injury secondary to sepsis, possible obstruction from BPH- improved. coleman removed this AM, frequent urination without difficulty reported. will bladder scan this afternoon to evaluate for retaining. cont flomax. avoid nephrotoxic agents. 4. Bipolar disorder- Continue [place] 5. BPH with urinary incontinence- improved. voiding trial today. 6. hypomagnesemia-Mg daily 7. Thrombocytopenia- likely due to sepsis? now improving. according to PMD last platelet count was 228. 8. DVT ppx- Start hep sq
--- NOTE | 2017-05-05 14:38 | PN ---
Progress Note, Physician History of Present Illness: feels much better no new issues now afebrile - Current Medication List Current Medications: Active Medications Acetaminophen (Tylenol -) 650 mg PO Q6H PRN PRN Reason: PAIN SCALE 6-10 Last Admin: 05/03/17 14:03 Dose: 650 mg Bethanechol Chloride (Urecholine -) 50 mg PO BID [facility] Last Admin: 05/05/17 09:23 Dose: 50 mg Diphenhydramine HCl (Benadryl -) 25 mg PO Q6H PRN PRN Reason: FOR ITCHING Last Admin: 05/03/17 17:39 Dose: 25 mg Heparin Sodium (Porcine) (Heparin -) 5,000 unit SQ BID [facility] Ertapenem 1 gm/ Sodium (Chloride) 50 mls @ 50 mls/hr IVPB DAILY [facility] PRN Reason: Protocol Last Admin: 05/05/17 10:52 Dose: 50 mls/hr [place] Carbonate (Eskalith -) 450 mg PO BID [facility] Last Admin: 05/05/17 09:23 Dose: 450 mg Magnesium Chloride (Slow-Mag -) 64 mg PO DAILY [facility] Last Admin: 05/05/17 09:24 Dose: 64 mg Ondansetron HCl (Zofran Injection) 4 mg IVPB Q6H PRN PRN Reason: NAUSEA Tamsulosin HCl (Flomax -) 0.8 mg PO HS [facility] Last Admin: 05/04/17 21:15 Dose: 0.8 mg - Objective Vital Signs: Vital Signs Temperature 97.8 F 05/05/17 14:00 Pulse Rate 69 05/05/17 14:00 Respiratory Rate 20 05/05/17 14:00 Blood Pressure 115/65 05/05/17 14:00 O2 Sat by Pulse Oximetry (%) 96 05/05/17 12:47 Constitutional: Yes: No Distress, Calm Cardiovascular: Yes: Regular Rate and Rhythm Respiratory: Yes: Regular, CTA Bilaterally Gastrointestinal: Yes: Normal Bowel Sounds, Soft Genitourinary: Yes: Other Musculoskeletal: Yes: WNL Extremities: Yes: WNL Neurological: Yes: Alert, Oriented Psychiatric: Yes: Alert, Oriented Labs: CBC, BMP 05/04/17 07:47 05/05/17 10:03 INR, PTT INR 2.05 (0.82-1.09) H 04/29/17 05:38 Assessment/Plan 1) Sepsis secondary to UTI, complicated 2) Altered mental status 3) JEAN suspected vs CKD 4) History Bipolar disorder 5) BPH suspected 6 bacteremia gm negative 7 leukocytosis plan continue abx continue close mgmt still having lot of urine rest as per primary
--- NOTE | 2017-05-05 16:05 | PN ---
Physical Exam: SUBJECTIVE: Patient seen and examined at bedside. Pt afebrile overnight. Pt still feeling emotional today, but much better than before. Coleman out this morning and pt has been voiding approx every 30 minutes after, 100 cc's of urine. He states that he has trouble initiating stream, but it is improving. Noted mild blood on first urination after coleman out, but most likely just irritation from catheter. Denies SOB, chest pain. OBJECTIVE: Vital Signs Period Temp Pulse Resp BP Sys/Ospina Pulse Ox Last 24 Hr 97.7 F-98.7 F 65-98 18-20 99-134/59-79 96-98 GENERAL: The patient is awake, alert, and fully oriented, in no acute distress. HEAD: Normal with no signs of trauma. EYES: PERRL, extraocular movements intact, sclera anicteric, conjunctiva clear. No ptosis. NECK: Trachea midline, full range of motion, supple. LUNGS: Breath sounds equal, clear to auscultation bilaterally, no wheezes, no crackles, no accessory muscle use. HEART: Regular rate and rhythm, S1, S2 without murmur, rub or gallop. ABDOMEN: Soft, nontender, nondistended, normoactive bowel sounds, no guarding, no rebound EXTREMITIES: 2+ posterior tibial pulses, warm, well-perfused, no edema. NEUROLOGICAL: Cranial nerves II through XII grossly intact. Laboratory Results - last 24 hr 05/05/17 10:03 Sodium 136 Potassium 4.1 Chloride 106 Carbon Dioxide 21 Anion Gap 9 BUN 21 H Creatinine 1.3 Random Glucose 203 H D Calcium 9.3 Active Medications Generic Name Dose Route Start Last Admin Trade Name [place] PRN Reason Stop Dose Admin Acetaminophen 650 mg 04/28/17 23:45 05/03/17 14:03 Tylenol - PO 650 mg Q6H PRN Administration PAIN SCALE 6-10 Bethanechol Chloride 50 mg 05/04/17 14:57 05/05/17 09:23 Urecholine - PO 50 mg BID ANT Administration Diphenhydramine HCl 25 mg 05/01/17 20:38 05/03/17 17:39 Benadryl - PO 25 mg Q6H PRN Administration FOR ITCHING Heparin Sodium (Porcine) 5,000 unit 05/05/17 22:00 Heparin - SQ BID ANT Ertapenem 1 gm/ Sodium 50 mls @ 50 mls/hr 05/04/17 16:45 05/05/17 10:52 Chloride IVPB 50 mls/hr DAILY ANT Administration Protocol [place] Carbonate 450 mg 04/29/17 10:00 05/05/17 09:23 Eskalith - PO 450 mg BID ANT Administration Magnesium Chloride 64 mg 05/02/17 19:15 05/05/17 09:24 Slow-Mag - PO 64 mg DAILY ANT Administration Ondansetron HCl 4 mg 04/28/17 23:24 Zofran Injection IVPB Q6H PRN NAUSEA Tamsulosin HCl 0.8 mg 05/04/17 22:00 05/04/17 21:15 Flomax - PO 0.8 mg HS ANT Administration ASSESSMENT/PLAN: This is a 56 yr old M with PMH of bipolar disorder (on [place]) and BPH s/p urodynamic testing and instrumentation, who presented to the ED for incontinence , dysuria, and polyuria for 2 days. Pt is admitted for sepsis secondary to UTI. # sepsis secondary to complicated UTI from E.coli (and Klebsiella bacteremia) -Currently afebrile -Continue Ertapenem (Today is Day2) -05/04/17: blood cx negative -ECHO: moderate tricuspid regurgitation, pulmonary regurgitation, no vegetations -Pt will most likely need 2 weeks of IV Abx, will F/u with ID #Thrombocytopenia, possibly d/t sepsis- resolving -As per pt, he has only seen Dr. Negro, has no PCP - platelets 228 (baseline June 2016) -Thrombocytopenia improving- (trending up from 77) #Hypomagnesemia -Supplement with Mg Cl 64mg qdaily -Will continue to follow levels #JEAN vs. CKD-resolved -BUN/Cr improved - WNL #Bipolar disorder -Continue [place] 450mg PO BID # BPH -Continue Flomax 0.8 mg PO -Bethanechol 50 mg PO BID for urinary retention -Coleman has been d/c, voiding trials -Bladder scan for this afternoon, will F/u -Dr. Negro on board #Altered mental status-resolved #DVT propylaxis -SCD's F/E/N monitor electrolytes regular diet Dispo -Will most likely be d/c home, but PT will evaluate Visit type - Emergency Visit Emergency Visit: No - New Patient This patient is new to me today: No - Critical Care Critical Care patient: No
[2017-05-05] MEDS ORDERED: PT OWN MED DRAWER 7, Y5N ONE (22:35)
[2017-05-05] MEDS: HEPARIN NA (PORCINE) 5,000 UNITS/ML 1ML VIAL SQ SCH (22:36)
[2017-05-05] MEDS: TAMSULOSIN HCL 0.4 MG CAP.ER.24H (FP) PO SCH (22:36)
[2017-05-06 07:19] LABS: ANION GAP 5 (8-16); CALCIUM 8.7 mg/dL (8.5-10.1); CO2 26 mmol/L (21-32); CREATININE 1.4 mg/dL (0.7-1.3); GLUCOSE,RANDOM 111 mg/dL (74-106)
[2017-05-06 07:27] LABS: MCHC 32.2 g/dl (32.0-35.9); MEAN CELL VOLUME 80.8 fl (80-96); MEAN PLT VOLUME 10.5 fl (7.5-11.1); PLATELET COUNT 170 K/MM3 (134-434); WHITE BLOOD COUNT 15.9 K/mm3 (4.0-10.0)
[2017-05-06] MEDS ORDERED: PT OWN MED DRAWER 7, Y5N ONE ×2 (09:24→09:38)
[2017-05-06] MEDS: ERTAPENEM SODIUM 1 GM in SODIUM CHLORIDE 50 ML IVPB SCH (09:28)
[2017-05-06] MEDS: HEPARIN NA (PORCINE) 5,000 UNITS/ML 1ML VIAL SQ SCH ×2 (09:28→21:43)
[2017-05-06] MEDS: BETHANECHOL CHLORIDE 25 MG TABLET PO SCH ×2 (09:28→21:44)
[2017-05-06] MEDS: MAGNESIUM CL 64 MG TABLET.SA PO SCH (09:46)
[2017-05-06] MEDS: LITHIUM CARBONATE 450 MG TABLET.ER PO SCH ×2 (09:47→21:44)
--- NOTE | 2017-05-06 10:58 | PN ---
Physical Exam: SUBJECTIVE: Patient seen and examined at bedside today. Yesterday afternoon, pt had bladder scan 560 and has been voiding multiple times since. He states that he is no longer having trouble initiating flow, now flowing freely however there is not as much urgency. Pt more optimistic today. Denies fever, chills, abdominal pain. OBJECTIVE: Vital Signs Period Temp Pulse Resp BP Sys/Ospina Pulse Ox Last 24 Hr 97.7 F-98.2 F 63-77 18-20 112-131/58-80 96-96 GENERAL: The patient is awake, alert, and fully oriented, in no acute distress. HEAD: Normal with no signs of trauma. EYES: PERRL, extraocular movements intact, sclera anicteric, conjunctiva clear. NECK: Trachea midline, supple. LUNGS: Breath sounds equal, clear to auscultation bilaterally, no wheezes, no crackles, no accessory muscle use. HEART: Regular rate and rhythm, S1, S2 without murmur, rub or gallop. ABDOMEN: Soft, nontender, nondistended, normoactive bowel sounds, no guarding, no rebound, no suprapubic tenderness. EXTREMITIES: 2+ posterior tibial pulses, warm, well-perfused, no edema. NEUROLOGICAL: Cranial nerves II through XII grossly intact. Laboratory Results - last 24 hr 05/06/17 05/06/17 05/06/17 06:05 06:05 06:05 WBC 15.9 H D RBC 4.88 Hgb 12.7 Hct 39.5 MCV 80.8 MCH 26.0 MCHC 32.2 RDW 16.0 H Plt Count 170 D MPV 10.5 Sodium 140 Potassium 4.6 Chloride 109 H Carbon Dioxide 26 D Anion Gap 5 L BUN 26 H D Creatinine 1.4 H Random Glucose 111 H D Hemoglobin A1c % 6.1 H Calcium 8.7 Active Medications Generic Name Dose Route Start Last Admin Trade Name Freq PRN Reason Stop Dose Admin Acetaminophen 650 mg 04/28/17 23:45 05/03/17 14:03 Tylenol - PO 650 mg Q6H PRN Administration PAIN SCALE 6-10 Bethanechol Chloride 50 mg 05/04/17 14:57 05/06/17 09:28 Urecholine - PO 50 mg BID ANT Administration Diphenhydramine HCl 25 mg 05/01/17 20:38 05/03/17 17:39 Benadryl - PO 25 mg Q6H PRN Administration FOR ITCHING Heparin Sodium (Porcine) 5,000 unit 05/05/17 22:00 05/06/17 09:28 Heparin - SQ 5,000 unit BID ANT Administration Ertapenem 1 gm/ Sodium 50 mls @ 50 mls/hr 05/04/17 16:45 05/06/17 09:28 Chloride IVPB 50 mls/hr DAILY ANT Administration Protocol [place] Carbonate 450 mg 04/29/17 10:00 05/06/17 09:47 Eskalith - PO 450 mg BID ANT Administration Magnesium Chloride 64 mg 05/02/17 19:15 05/06/17 09:46 Slow-Mag - PO 64 mg DAILY ANT Administration Ondansetron HCl 4 mg 04/28/17 23:24 Zofran Injection IVPB Q6H PRN NAUSEA Tamsulosin HCl 0.8 mg 05/04/17 22:00 05/05/17 22:36 Flomax - PO 0.8 mg HS ANT Administration ASSESSMENT/PLAN: This is a 56 yr old M with PMH of bipolar disorder (on [place]) and BPH s/p urodynamic testing and instrumentation, who presented to the ED for incontinence , dysuria, and polyuria for 2 days. Pt is admitted for sepsis secondary to UTI. # sepsis secondary to complicated UTI from E.coli (and Klebsiella bacteremia) -Has been afebrile for 48hrs, however Leukocytosis of 15.9 -Will follow count, if decreases by tomorrow may be able to go home w/Coleman and 2 wks IV Abx -For possible PICC line placement today -Continue Ertapenem (Today is Day3) #Thrombocytopenia, possibly d/t sepsis- resolved -As per pt, he has only seen Dr. Negro, has no PCP - platelets 228 (baseline June 2016) -Platelets WNL #Hypomagnesemia -Supplement with Mg Cl 64mg qdaily -Will continue to follow levels #JEAN -BUN/Cr 26/1.4 today, has trended up -Possibly d/t frequent urination -Will encourage PO intake #Bipolar disorder -Continue [place] 450mg PO BID # BPH -Continue Flomax 0.8 mg PO -Bethanechol 50 mg PO BID for urinary retention -Pt currently does not have coleman -Will F/u bladder scan from this AM to see if retention and if pt needs Coleman reinserted -Dr. Negro on board #Altered mental status-resolved #DVT propylaxis -SCD's F/E/N monitor electrolytes regular diet Dispo -Will most likely be d/c home, but PT will evaluate -Will need training from infusion staff to complete Iv Abx at home Visit type - Emergency Visit Emergency Visit: No - New Patient This patient is new to me today: No - Critical Care Critical Care patient: No
--- NOTE | 2017-05-06 13:27 | PN ---
Teaching Attending Note Name of Resident: Marilee Peralta ATTENDING PHYSICIAN STATEMENT I saw and evaluated the patient. I reviewed the resident's note and discussed the case with the resident. I agree with the resident's findings and plan as documented. SUBJECTIVE:states he is urinating less frequently and with less resistance. denies CP, fever, chills, N/V/C/D, no spurapubic tenderness, no hematuria OBJECTIVE: Last Vital Signs Temp Pulse Resp BP Pulse Ox 97.8 F 68 18 122/78 96 05/06/17 06:32 05/06/17 06:32 05/06/17 06:32 05/06/17 06:32 05/05/17 21:00 General NAD CV S1 S2 RRR no murmur/rub/gallop Lungs CTA B/L no wheezing/rales/rhonchi Abdomen soft NT/ND no CVA tenderness no suprapubic tenderness or distention ASSESSMENT AND PLAN: 56-year-old man with a history of bipolar disorder, BPH, urinary incontinence who presented to the ER with dysuria, polyuria, and confusion. 1. Sepsis secondary to UTI and gram negative bacteremia after urodynamic studies -afebrile >72H however uptrend in leukocytes. will need to monitor on ertapenem. will need senior living abx. discuss with ID about course duration. PICC line placement today for possible discharge this weekend. 2. Acute metabolic encephalopathy secondary to sepsis- Resolved 3. Acute kidney injury secondary to sepsis, possible obstruction from BPH- improved. at baseline. cont flomax. avoid nephrotoxic agents. 4. Bipolar disorder- Continue [place] 5. BPH with urinary incontinence- improved per pt. bladder scan in the evening with significant retention. coleman not placed. pt states it is improving. will check bladder scan today. if residual >400 will need coleman placement. 6. hypomagnesemia-Mg daily 7. Thrombocytopenia- likely due to sepsis? now improving. according to PMD last platelet count was 228. 8. class II obesity 9. DVT ppx- hep sq
--- NOTE | 2017-05-06 14:46 | PN ---
Progress Note, Physician History of Present Illness: patient is remaining afebrile without any complaints no new issues patients wbc has started climbing - Current Medication List Current Medications: Active Medications Acetaminophen (Tylenol -) 650 mg PO Q6H PRN PRN Reason: PAIN SCALE 6-10 Last Admin: 05/03/17 14:03 Dose: 650 mg Bethanechol Chloride (Urecholine -) 50 mg PO BID [facility] Last Admin: 05/06/17 09:28 Dose: 50 mg Diphenhydramine HCl (Benadryl -) 25 mg PO Q6H PRN PRN Reason: FOR ITCHING Last Admin: 05/03/17 17:39 Dose: 25 mg Heparin Sodium (Porcine) (Heparin -) 5,000 unit SQ BID [facility] Last Admin: 05/06/17 09:28 Dose: 5,000 unit Ertapenem 1 gm/ Sodium (Chloride) 50 mls @ 50 mls/hr IVPB DAILY [facility] PRN Reason: Protocol Last Admin: 05/06/17 09:28 Dose: 50 mls/hr [place] Carbonate (Eskalith -) 450 mg PO BID [facility] Last Admin: 05/06/17 09:47 Dose: 450 mg Magnesium Chloride (Slow-Mag -) 64 mg PO DAILY [facility] Last Admin: 05/06/17 09:46 Dose: 64 mg Ondansetron HCl (Zofran Injection) 4 mg IVPB Q6H PRN PRN Reason: NAUSEA Tamsulosin HCl (Flomax -) 0.8 mg PO HS [facility] Last Admin: 05/05/17 22:36 Dose: 0.8 mg - Objective Vital Signs: Vital Signs Temperature 97.8 F 05/06/17 06:32 Pulse Rate 68 05/06/17 06:32 Respiratory Rate 18 05/06/17 06:32 Blood Pressure 122/78 05/06/17 06:32 O2 Sat by Pulse Oximetry (%) 96 05/05/17 21:00 Constitutional: Yes: No Distress, Calm Cardiovascular: Yes: Regular Rate and Rhythm Respiratory: Yes: Regular, CTA Bilaterally Gastrointestinal: Yes: Normal Bowel Sounds, Soft Musculoskeletal: Yes: WNL Extremities: Yes: WNL Neurological: Yes: Alert, Oriented Psychiatric: Yes: Alert, Oriented Labs: CBC, BMP 05/06/17 06:05 05/06/17 06:05 INR, PTT INR 2.05 (0.82-1.09) H 04/29/17 05:38 Assessment/Plan 1) Sepsis secondary to UTI, complicated 2) Altered mental status 3) JEAN suspected vs CKD 4) History Bipolar disorder 5) BPH suspected 6 bacteremia gm negative 7 leukocytosis plan wbc increasing we need to see how much urine patient is having for 24 hours figure out if patient has nephrogenic diabetes insipidus if he is retaining any urine if he is getting infection again continue to monitor wbc if wbc keeps increasing will switch him back to meropenam rest as per primary team
[2017-05-06] MEDS: TAMSULOSIN HCL 0.4 MG CAP.ER.24H (FP) PO SCH (21:44)
[2017-05-07 08:12] LABS: MCHC 32.2 g/dl (32.0-35.9); MEAN CELL VOLUME 80.5 fl (80-96); MEAN PLT VOLUME 10.2 fl (7.5-11.1); PLATELET COUNT 210 K/MM3 (134-434); RDW 15.8 % (11.9-15.9); WHITE BLOOD COUNT 17.2 K/mm3 (4.0-10.0)
[2017-05-07 08:20] LABS: ANION GAP 8 (8-16); CALCIUM 9.2 mg/dL (8.5-10.1); CO2 26 mmol/L (21-32); CREATININE 1.2 mg/dL (0.7-1.3); GLUCOSE,RANDOM 115 mg/dL (74-106)
[2017-05-07] MEDS ORDERED: PT OWN MED DRAWER 7, Y5N ONE ×2 (09:04→21:03)
[2017-05-07] MEDS: MAGNESIUM CL 64 MG TABLET.SA PO SCH (09:11)
[2017-05-07] MEDS: LITHIUM CARBONATE 450 MG TABLET.ER PO SCH ×2 (09:12→21:31)
[2017-05-07] MEDS: HEPARIN NA (PORCINE) 5,000 UNITS/ML 1ML VIAL SQ SCH ×2 (09:12→21:31)
[2017-05-07] MEDS: BETHANECHOL CHLORIDE 25 MG TABLET PO SCH ×2 (09:19→21:31)
[2017-05-07] MEDS: ERTAPENEM SODIUM 1 GM in SODIUM CHLORIDE 50 ML IVPB SCH (10:15)
--- NOTE | 2017-05-07 10:15 | PN ---
Progress Note (short form) - Note Progress Note: asymptomatic. denies dysuria, urinary frequency, hematuria, CP, fever, chills, N /V/C/D Current Medications Generic Name Dose Route Start Last Admin Trade Name King PRN Reason Stop Dose Admin Acetaminophen 650 mg 04/28/17 23:45 05/03/17 14:03 Tylenol - PO 650 mg Q6H PRN Administration PAIN SCALE 6-10 Bethanechol Chloride 50 mg 05/04/17 14:57 05/07/17 09:19 Urecholine - PO 50 mg BID ANT Administration Diphenhydramine HCl 25 mg 05/01/17 20:38 05/03/17 17:39 Benadryl - PO 25 mg Q6H PRN Administration FOR ITCHING Heparin Sodium (Porcine) 5,000 unit 05/05/17 22:00 05/07/17 09:12 Heparin - SQ 5,000 unit BID ANT Administration Ertapenem 1 gm/ Sodium 50 mls @ 50 mls/hr 05/04/17 16:45 05/06/17 09:28 Chloride IVPB 50 mls/hr DAILY ANT Administration Protocol [place] Carbonate 450 mg 04/29/17 10:00 05/07/17 09:12 Eskalith - PO 450 mg BID ANT Administration Magnesium Chloride 64 mg 05/02/17 19:15 05/07/17 09:11 Slow-Mag - PO 64 mg DAILY ANT Administration Ondansetron HCl 4 mg 04/28/17 23:24 Zofran Injection IVPB Q6H PRN NAUSEA Tamsulosin HCl 0.8 mg 05/04/17 22:00 05/06/17 21:44 Flomax - PO 0.8 mg HS ANT Administration Last Vital Signs Temp Pulse Resp BP Pulse Ox 98.1 F 71 18 134/66 97 05/07/17 06:00 05/07/17 06:00 05/07/17 06:00 05/07/17 06:00 05/06/17 21:00 Intake & Output 05/04/17 05/05/17 05/06/17 05/07/17 23:59 23:59 23:59 23:59 Intake Total 917 194 8280 Output Total 6800 4000 1500 3100 Balance -6260 -3900 -250 -3100 General NAD CV S1 S2 RRR no murmur/rub/gallop Lungs CTA B/L no wheezing/rales/rhonchi Abdomen soft NT/ND no CVA tenderness no suprapubic tenderness CBCD WBC 17.2 K/mm3 (4.0-10.0) H 05/07/17 06:30 RBC 4.78 M/mm3 (4.00-5.60) 05/07/17 06:30 Hgb 12.4 GM/dL (11.7-16.9) 05/07/17 06:30 Hct 38.5 % (35.4-49) 05/07/17 06:30 MCV 80.5 fl (80-96) 05/07/17 06:30 MCHC 32.2 g/dl (32.0-35.9) 05/07/17 06:30 RDW 15.8 % (11.9-15.9) 05/07/17 06:30 Plt Count 210 K/MM3 (134-434) D 05/07/17 06:30 MPV 10.2 fl (7.5-11.1) 05/07/17 06:30 CMP Sodium 140 mmol/L (136-145) 05/07/17 06:30 Potassium 4.8 mmol/L (3.5-5.1) 05/07/17 06:30 Chloride 106 mmol/L (98-107) 05/07/17 06:30 Carbon Dioxide 26 mmol/L (21-32) 05/07/17 06:30 Anion Gap 8 (8-16) 05/07/17 06:30 BUN 23 mg/dL (7-18) H 05/07/17 06:30 Creatinine 1.2 mg/dL (0.7-1.3) 05/07/17 06:30 Creat Clearance w eGFR 36.72 (>60) 04/29/17 05:38 Calcium 9.2 mg/dL (8.5-10.1) 05/07/17 06:30 Total Bilirubin 1.5 mg/dL (0.2-1.0) H 04/29/17 05:38 AST 37 U/L (15-37) D 04/29/17 05:38 ALT 60 U/L (12-78) D 04/29/17 05:38 Alkaline Phosphatase 43 U/L (45-117) L 04/29/17 05:38 Total Protein 5.8 g/dl (6.4-8.2) L 04/29/17 05:38 Albumin 2.8 g/dl (3.4-5.0) L 04/29/17 05:38 ASSESSMENT AND PLAN: 56-year-old man with a history of bipolar disorder, BPH, urinary incontinence who presented to the ER with dysuria, polyuria, and confusion. 1. Sepsis secondary to UTI and gram negative bacteremia after urodynamic studies -afebrile >72H however leukocytes continues to trend up. will likely need to transition to meropenem. will need to d/w ID. no signs of active infection, afebrile, no symptoms. will need usp abx. 2. Acute metabolic encephalopathy secondary to sepsis- Resolved 3. Acute kidney injury secondary to sepsis, possible obstruction from BPH- improved. cont flomax. avoid nephrotoxic agents. 4. Bipolar disorder- Continue [place] 5. BPH with urinary incontinence- coleman placed back due to retention. UOP is good but has decreased. increased urination likely post-obstruction diuresis. concern for DI is less likely as urine was not dilute on presentation (normal specific gravity). lithium use does put at risk. will check level. urine studies. pending. maintian coleman for now. will need outpatient follow up for removal. cont flomax, bethanechol 6. hypomagnesemia-c/d mg, check level tomorrow 7. pre-diabetes- A1c 6.1. counseled pt on dietary changes. nutrition consult for appropriate diet 8. Thrombocytopenia- likely due to sepsis? now improving. according to PMD last platelet count was 228. 9. class II obesity 10. DVT ppx- hep sq Visit type - Emergency Visit Emergency Visit: Yes ED Registration Date: 04/28/17 Care time: The patient presented to the Emergency Department on the above date and was hospitalized for further evaluation of their emergent condition. - New Patient This patient is new to me today: No - Critical Care Critical Care patient: No - Discharge Referral Referred to [facility] Med P.C.: No
--- NOTE | 2017-05-07 12:59 | PN ---
Progress Note, Physician History of Present Illness: clinically patient is stable no new issues - Current Medication List Current Medications: Active Medications Acetaminophen (Tylenol -) 650 mg PO Q6H PRN PRN Reason: PAIN SCALE 6-10 Last Admin: 05/03/17 14:03 Dose: 650 mg Bethanechol Chloride (Urecholine -) 50 mg PO BID [facility] Last Admin: 05/07/17 09:19 Dose: 50 mg Diphenhydramine HCl (Benadryl -) 25 mg PO Q6H PRN PRN Reason: FOR ITCHING Last Admin: 05/03/17 17:39 Dose: 25 mg Heparin Sodium (Porcine) (Heparin -) 5,000 unit SQ BID [facility] Last Admin: 05/07/17 09:12 Dose: 5,000 unit Ertapenem 1 gm/ Sodium (Chloride) 50 mls @ 50 mls/hr IVPB DAILY [facility] PRN Reason: Protocol Last Admin: 05/07/17 10:15 Dose: 50 mls/hr [place] Carbonate (Eskalith -) 450 mg PO BID [facility] Last Admin: 05/07/17 09:12 Dose: 450 mg Ondansetron HCl (Zofran Injection) 4 mg IVPB Q6H PRN PRN Reason: NAUSEA Tamsulosin HCl (Flomax -) 0.8 mg PO HS [facility] Last Admin: 05/06/17 21:44 Dose: 0.8 mg - Objective Vital Signs: Vital Signs Temperature 98.1 F 05/07/17 06:00 Pulse Rate 71 05/07/17 06:00 Respiratory Rate 18 05/07/17 06:00 Blood Pressure 134/66 05/07/17 06:00 O2 Sat by Pulse Oximetry (%) 97 05/06/17 21:00 Constitutional: Yes: No Distress, Calm Cardiovascular: Yes: Regular Rate and Rhythm Respiratory: Yes: Regular, CTA Bilaterally Gastrointestinal: Yes: Normal Bowel Sounds, Soft Genitourinary: Yes: Hopper Present Musculoskeletal: Yes: WNL Extremities: Yes: WNL Neurological: Yes: Alert, Oriented Psychiatric: Yes: Alert, Oriented Labs: CBC, BMP 05/07/17 06:30 05/07/17 06:30 INR, PTT INR 2.05 (0.82-1.09) H 04/29/17 05:38 Assessment/Plan 1) Sepsis secondary to UTI, complicated 2) Altered mental status 3) JEAN suspected vs CKD 4) History Bipolar disorder 5) BPH suspected 6 bacteremia gm negative 7 leukocytosis plan wbc increasing ordered stat blood cx will see the wbc tomorrow if still on the higher side will switch to meropenam
[2017-05-07] MEDS: TAMSULOSIN HCL 0.4 MG CAP.ER.24H (FP) PO SCH (21:30)
[2017-05-08 07:39] LABS: MCH 26.2 pg (25.7-33.7); MCHC 32.7 g/dl (32.0-35.9); MEAN CELL VOLUME 80.1 fl (80-96); MEAN PLT VOLUME 9.7 fl (7.5-11.1); PLATELET COUNT 227 K/MM3 (134-434); RDW 15.8 % (11.9-15.9); WHITE BLOOD COUNT 16.1 K/mm3 (4.0-10.0)
[2017-05-08 08:05] LABS: ANION GAP 8 (8-16); CALCIUM 9.4 mg/dL (8.5-10.1); CO2 24 mmol/L (21-32); CREATININE 1.4 mg/dL (0.7-1.3); GLUCOSE,RANDOM 113 mg/dL (74-106); MAGNESIUM 2.3 mg/dL (1.8-2.4)
[2017-05-08] MEDS ORDERED: PT OWN MED DRAWER 7, Y5N ONE ×2 (08:37→21:10)
[2017-05-08] MEDS ORDERED: SODIUM CHLORIDE 1,000 ML IV SCH (09:00)
[2017-05-08] MEDS: ERTAPENEM SODIUM 1 GM in SODIUM CHLORIDE 50 ML IVPB SCH (09:54)
[2017-05-08] MEDS: BETHANECHOL CHLORIDE 25 MG TABLET PO SCH ×2 (09:54→21:16)
[2017-05-08] MEDS: HEPARIN NA (PORCINE) 5,000 UNITS/ML 1ML VIAL SQ SCH ×2 (09:54→21:16)
[2017-05-08] MEDS: LITHIUM CARBONATE 450 MG TABLET.ER PO SCH ×2 (09:55→21:17)
--- NOTE | 2017-05-08 12:05 | PN ---
Progress Note, Physician History of Present Illness: patient stable no new issues wbc still on the higher side - Current Medication List Current Medications: Active Medications Acetaminophen (Tylenol -) 650 mg PO Q6H PRN PRN Reason: PAIN SCALE 6-10 Last Admin: 05/03/17 14:03 Dose: 650 mg Bethanechol Chloride (Urecholine -) 50 mg PO BID [facility] Last Admin: 05/08/17 09:54 Dose: 50 mg Diphenhydramine HCl (Benadryl -) 25 mg PO Q6H PRN PRN Reason: FOR ITCHING Last Admin: 05/03/17 17:39 Dose: 25 mg Heparin Sodium (Porcine) (Heparin -) 5,000 unit SQ BID [facility] Last Admin: 05/08/17 09:54 Dose: 5,000 unit Ertapenem 1 gm/ Sodium (Chloride) 50 mls @ 50 mls/hr IVPB DAILY [facility] PRN Reason: Protocol Last Admin: 05/08/17 09:54 Dose: 50 mls/hr Sodium Chloride (Normal Saline -) 1,000 mls @ 150 mls/hr IV ASDIR [facility] Stop: 05/09/17 15:39 Last Admin: 05/08/17 09:03 Dose: 150 mls/hr [place] Carbonate (Eskalith -) 450 mg PO BID [facility] Last Admin: 05/08/17 09:55 Dose: 450 mg Ondansetron HCl (Zofran Injection) 4 mg IVPB Q6H PRN PRN Reason: NAUSEA Tamsulosin HCl (Flomax -) 0.8 mg PO [facility] Last Admin: 05/07/17 21:30 Dose: 0.8 mg - Objective Vital Signs: Vital Signs Temperature 98.0 F 05/08/17 06:00 Pulse Rate 63 05/08/17 06:00 Respiratory Rate 20 05/08/17 06:00 Blood Pressure 153/81 05/08/17 06:00 O2 Sat by Pulse Oximetry (%) 97 05/07/17 21:00 Constitutional: Yes: No Distress, Calm Respiratory: Yes: Regular Gastrointestinal: Yes: Normal Bowel Sounds, Soft Genitourinary: Yes: Hopper Present Musculoskeletal: Yes: WNL Extremities: Yes: WNL Neurological: Yes: Alert, Oriented Psychiatric: Yes: Alert, Oriented Labs: CBC, BMP 05/08/17 06:00 05/08/17 06:00 INR, PTT INR 2.05 (0.82-1.09) H 04/29/17 05:38 Assessment/Plan 1) Sepsis secondary to UTI, complicated 2) Altered mental status 3) JEAN suspected vs CKD 4) History Bipolar disorder 5) BPH suspected 6 bacteremia gm negative 7 leukocytosis wbc still high blood cx pending plan will switch to meropenam watch wbc and fever await for blood cx to come back rest as per primary
--- NOTE | 2017-05-08 15:41 | PN ---
Progress Note (short form) - Note Progress Note: asymptomatic. denies dysuria, urinary frequency, hematuria, CP, fever, chills, N /V/C/D Current Medications Generic Name Dose Route Start Last Admin Trade Name Freq PRN Reason Stop Dose Admin Acetaminophen 650 mg 04/28/17 23:45 05/03/17 14:03 Tylenol - PO 650 mg Q6H PRN Administration PAIN SCALE 6-10 Bethanechol Chloride 50 mg 05/04/17 14:57 05/08/17 09:54 Urecholine - PO 50 mg BID ANT Administration Diphenhydramine HCl 25 mg 05/01/17 20:38 05/03/17 17:39 Benadryl - PO 25 mg Q6H PRN Administration FOR ITCHING Heparin Sodium (Porcine) 5,000 unit 05/05/17 22:00 05/08/17 09:54 Heparin - SQ 5,000 unit BID ANT Administration Sodium Chloride 1,000 mls @ 150 mls/hr 05/08/17 09:00 05/08/17 09:03 Normal Saline - IV 05/09/17 15:39 150 mls/hr ASDIR ANT Administration Meropenem 1 gm/ Dextrose 100 mls @ 200 mls/hr 05/08/17 18:00 IVPB Q8H-IV ANT Protocol [place] Carbonate 450 mg 04/29/17 10:00 05/08/17 09:55 Eskalith - PO 450 mg BID ANT Administration Ondansetron HCl 4 mg 04/28/17 23:24 Zofran Injection IVPB Q6H PRN NAUSEA Tamsulosin HCl 0.8 mg 05/04/17 22:00 05/07/17 21:30 Flomax - PO 0.8 mg HS ANT Administration Last Vital Signs Temp Pulse Resp BP Pulse Ox 98.1 F 67 20 127/73 97 05/08/17 15:31 05/08/17 15:31 05/08/17 15:31 05/08/17 15:31 05/07/17 21:00 Intake & Output 05/05/17 05/06/17 05/07/17 05/08/17 23:59 23:59 23:59 23:59 Intake Total 100 1250 610 500 Output Total 4000 1500 8800 2800 Balance -3900 -250 -8190 -2300 General NAD CV S1 S2 RRR no murmur/rub/gallop Lungs CTA B/L no wheezing/rales/rhonchi Abdomen soft NT/ND no CVA tenderness no suprapubic tenderness CBCD WBC 16.1 K/mm3 (4.0-10.0) H 05/08/17 06:00 RBC 4.79 M/mm3 (4.00-5.60) 05/08/17 06:00 Hgb 12.5 GM/dL (11.7-16.9) 05/08/17 06:00 Hct 38.4 % (35.4-49) 05/08/17 06:00 MCV 80.1 fl (80-96) 05/08/17 06:00 MCHC 32.7 g/dl (32.0-35.9) 05/08/17 06:00 RDW 15.8 % (11.9-15.9) 05/08/17 06:00 Plt Count 227 K/MM3 (134-434) 05/08/17 06:00 MPV 9.7 fl (7.5-11.1) 05/08/17 06:00 CMP Sodium 138 mmol/L (136-145) 05/08/17 06:00 Potassium 4.7 mmol/L (3.5-5.1) 05/08/17 06:00 Chloride 106 mmol/L (98-107) 05/08/17 06:00 Carbon Dioxide 24 mmol/L (21-32) 05/08/17 06:00 Anion Gap 8 (8-16) 05/08/17 06:00 BUN 26 mg/dL (7-18) H 05/08/17 06:00 Creatinine 1.4 mg/dL (0.7-1.3) H 05/08/17 06:00 Creat Clearance w eGFR 36.72 (>60) 04/29/17 05:38 Calcium 9.4 mg/dL (8.5-10.1) 05/08/17 06:00 Total Bilirubin 1.5 mg/dL (0.2-1.0) H 04/29/17 05:38 AST 37 U/L (15-37) D 04/29/17 05:38 ALT 60 U/L (12-78) D 04/29/17 05:38 Alkaline Phosphatase 43 U/L (45-117) L 04/29/17 05:38 Total Protein 5.8 g/dl (6.4-8.2) L 04/29/17 05:38 Albumin 2.8 g/dl (3.4-5.0) L 04/29/17 05:38 ASSESSMENT AND PLAN: 56-year-old man with a history of bipolar disorder, BPH, urinary incontinence who presented to the ER with dysuria, polyuria, and confusion. 1. Sepsis secondary to UTI and gram negative bacteremia after urodynamic studies -afebrile, mild improvement in leukocytosis. ertapenem switched back to meropenem. will need bed bug exterminator abx. will d/w ID about picc and discharge. 2. Acute metabolic encephalopathy secondary to sepsis- Resolved 3. Acute kidney injury secondary to sepsis, possible obstruction from BPH- improved. cont flomax. avoid nephrotoxic agents. 4. Bipolar disorder- Continue [place]. level normal 5. BPH with urinary incontinence-large amount of UOP yesterday, concern may not be accurate per RN. serum Osm ULN. awaiting Uosm. if low will need workup for DI and will consult nephrology. 24H urine collection pending. maintain coleman. cont flomax, bethanechol 6. hypomagnesemia-normal level 7. pre-diabetes- A1c 6.1. counseled pt on dietary changes. nutrition consult for appropriate diet 8. Thrombocytopenia- likely due to sepsis? now improving. according to PMD last platelet count was 228. 9. class II obesity 10. DVT ppx- hep sq Visit type - Emergency Visit Emergency Visit: Yes ED Registration Date: 04/28/17 Care time: The patient presented to the Emergency Department on the above date and was hospitalized for further evaluation of their emergent condition. - New Patient This patient is new to me today: No - Critical Care Critical Care patient: No - Discharge Referral Referred to [facility].: No
[2017-05-08] MEDS: MEROPENEM 1 GM in DEXTROSE 5%-WATER - 100 ML IVPB SCH (17:47)
--- NOTE | 2017-05-08 18:59 | PN ---
Progress Note (short form) - Note Progress Note: UROLOGY. Pt.with rec. retention, ocleman patent, urine clear, abd. soft, n/t, renal function-WNL pt. will need w/u as O.P.
[2017-05-08] MEDS: TAMSULOSIN HCL 0.4 MG CAP.ER.24H (FP) PO SCH (21:16)
[2017-05-09] MEDS ORDERED: PT OWN MED DRAWER 7, Y5N ONE ×4 (02:10→21:27)
[2017-05-09] MEDS: MEROPENEM 1 GM in DEXTROSE 5%-WATER - 100 ML IVPB SCH ×3 (02:24→18:43)
[2017-05-09] MEDS: BETHANECHOL CHLORIDE 25 MG TABLET PO SCH ×2 (09:52→21:33)
[2017-05-09] MEDS: HEPARIN NA (PORCINE) 5,000 UNITS/ML 1ML VIAL SQ SCH ×2 (09:52→21:34)
[2017-05-09] MEDS: LITHIUM CARBONATE 450 MG TABLET.ER PO SCH ×2 (09:52→21:34)
--- NOTE | 2017-05-09 15:10 | PN ---
Progress Note, Physician History of Present Illness: patient stable no new issues urology note noted - Current Medication List Current Medications: Active Medications Acetaminophen (Tylenol -) 650 mg PO Q6H PRN PRN Reason: PAIN SCALE 6-10 Last Admin: 05/03/17 14:03 Dose: 650 mg Bethanechol Chloride (Urecholine -) 50 mg PO BID [facility] Last Admin: 05/09/17 09:52 Dose: 50 mg Diphenhydramine HCl (Benadryl -) 25 mg PO Q6H PRN PRN Reason: FOR ITCHING Last Admin: 05/03/17 17:39 Dose: 25 mg Heparin Sodium (Porcine) (Heparin -) 5,000 unit SQ BID [facility] Last Admin: 05/09/17 09:52 Dose: 5,000 unit Meropenem 1 gm/ Dextrose 100 mls @ 200 mls/hr IVPB Q8H-IV ANT PRN Reason: Protocol Last Admin: 05/09/17 09:53 Dose: 200 mls/hr [place] Carbonate (Eskalith -) 450 mg PO BID [facility] Last Admin: 05/09/17 09:52 Dose: 450 mg Ondansetron HCl (Zofran Injection) 4 mg IVPB Q6H PRN PRN Reason: NAUSEA Tamsulosin HCl (Flomax -) 0.8 mg PO HS [facility] Last Admin: 05/08/17 21:16 Dose: 0.8 mg - Objective Vital Signs: Vital Signs Temperature 98.1 F 05/09/17 13:41 Pulse Rate 75 05/09/17 13:41 Respiratory Rate 19 05/09/17 13:41 Blood Pressure 109/64 05/09/17 13:41 O2 Sat by Pulse Oximetry (%) 98 05/09/17 09:00 Constitutional: Yes: No Distress HENT: Yes: Atraumatic Neck: Yes: Supple Cardiovascular: Yes: Regular Rate and Rhythm Respiratory: Yes: Regular, CTA Bilaterally Gastrointestinal: Yes: Normal Bowel Sounds, Soft Genitourinary: Yes: Hopper Present Musculoskeletal: Yes: WNL Extremities: Yes: WNL Neurological: Yes: Alert, Oriented Psychiatric: Yes: Alert, Oriented Labs: CBC, BMP 05/08/17 06:00 05/08/17 06:00 INR, PTT INR 2.05 (0.82-1.09) H 04/29/17 05:38 Assessment/Plan 1) Sepsis secondary to UTI, complicated 2) Altered mental status 3) JEAN suspected vs CKD 4) History Bipolar disorder 5) BPH suspected 6 bacteremia gm negative 7 leukocytosis wbc still high blood cx pending plan continue fco blood cx negative so far check wbc if wbc comes down then we will decide on further mgmt rest as per primary team
--- NOTE | 2017-05-09 15:25 | PN ---
Teaching Attending Note Name of Resident: Marilee Peralta ATTENDING PHYSICIAN STATEMENT I saw and evaluated the patient. I reviewed the resident's note and discussed the case with the resident. I agree with the resident's findings and plan as documented. SUBJECTIVE:asymptomatic. denies excessive thirst, CP, SOB, fever, chills OBJECTIVE: Last Vital Signs Temp Pulse Resp BP Pulse Ox 98.1 F 75 19 109/64 98 05/09/17 13:41 05/09/17 13:41 05/09/17 13:41 05/09/17 13:41 05/09/17 09:00 Intake & Output 05/06/17 05/07/17 05/08/17 05/09/17 23:59 23:59 23:59 23:59 Intake Total 1250 610 500 50 Output Total 1500 8800 4150 2500 Balance -543 -3663 -8968 -0947 General NAD ASSESSMENT AND PLAN: 56-year-old man with a history of bipolar disorder, BPH, urinary incontinence who presented to the ER with dysuria, polyuria, and confusion. 1. Sepsis secondary to UTI and gram negative bacteremia after urodynamic studies -afebrile, mild improvement in leukocytosis. ertapenem switched back to meropenem. will need shelter abx. will d/w ID about picc and discharge. 2. Polyuria- concern for DI. ULN Sosm and low Uosm. water restriction testing renal on board. 3. Acute metabolic encephalopathy secondary to sepsis- Resolved 4. Acute kidney injury secondary to sepsis, possible obstruction from BPH- improved. cont flomax. avoid nephrotoxic agents. 5. Bipolar disorder- Continue [place]. level normal 6. BPH with urinary incontinence-coleman in place.will need outpatient workup. cont flomax, bethanechol 7. hypomagnesemia-normal level 8. pre-diabetes- A1c 6.1. counseled pt on dietary changes. nutrition consult for appropriate diet 9. Thrombocytopenia- likely due to sepsis? now improving. according to PMD last platelet count was 228. 10. class II obesity 11. DVT ppx- hep sq
--- NOTE | 2017-05-09 15:41 | CONSULT ---
Consult Consult Specialty:: Nephrology Reason for Consultation:: polyuria - History of Present Illness Chief Complaint: initially presented with incontinance History of Present Illness: Pt is a 56 year old male with pmhx of bipolar on [place] and BPH who initially presented to the ER with incontinance. He was found to have sepsis from UTI and was admitted for treatment. I was called to evaluate him for polyruia. He has not had any episodes of hypernatremia. He says he drinks at least 4 of the 1 liter pitchers of water per day. He also has other drinks and beverages with meals. He denies any feeling of thirst. He says that he started drinking water after his visit with urology for an elevated PSA. He denies shortness of breath. - History Source History Provided By: Patient, Medical Record - Past Medical History Renal/: Yes: BPH Psych: Yes: Bipolar - Alcohol/Substance Use Hx Alcohol Use: No - Smoking History Smoking history: Never smoked Aproximately how many cigarettes per day: 0 Home Medications - Allergies Allergies/Adverse Reactions: Allergies Allergy/AdvReac Type Severity Reaction Status Date / Time No Known Allergies Allergy Verified 04/28/17 22:47 - Home Medications Home Medications: Ambulatory Orders [place] Aspartate [Lithate] 0 mg PO DAILY 04/28/17 [place] Carbonate [Eskalith -] 450 mg PO BID 04/29/17 Tamsulosin HCl [Flomax] 0.4 mg PO DAILY 04/29/17 Family Disease History - Family Disease History Family History: Denies Review of Systems - Review of Systems Constitutional: reports: No Symptoms Eyes: reports: No Symptoms HENT: reports: No Symptoms Neck: reports: No Symptoms Respiratory: reports: No Symptoms Gastrointestinal: reports: No Symptoms Genitourinary: reports: No Symptoms Musculoskeletal: reports: No Symptoms Integumentary: reports: No Symptoms Neurological: reports: No Symptoms Endocrine: reports: No Symptoms Hematology/Lymphatic: reports: No Symptoms Psychiatric: reports: No Symptoms Physical Exam Vital Signs: Vital Signs Temperature 98.1 F 05/09/17 13:41 Pulse Rate 75 05/09/17 13:41 Respiratory Rate 19 05/09/17 13:41 Blood Pressure 109/64 05/09/17 13:41 O2 Sat by Pulse Oximetry (%) 98 05/09/17 09:00 Constitutional: Yes: Calm Eyes: Yes: Conjunctiva Clear HENT: Yes: Atraumatic Neck: Yes: Supple Cardiovascular: Yes: S1, S2 Respiratory: Yes: CTA Bilaterally Gastrointestinal: Yes: Soft Renal/: Yes: Hopper Present Musculoskeletal: Yes: WNL Extremities: Yes: WNL Edema: No Neurological: Yes: Oriented Psychiatric: Yes: Oriented Labs: CBC, BMP 05/08/17 06:00 05/08/17 06:00 Laboratory Tests 04/28/17 04/28/17 04/28/17 21:24 21:24 21:24 WBC Sodium Potassium Chloride Carbon Dioxide Anion Gap BUN Creatinine 2.2 H Urine Osmolality Ur 24 Hour Volume Opiates Screen Negative Methadone Screen Negative Barbiturate Screen Negative Phencyclidine Screen Negative Ur Amphetamines Screen Negative MDMA (Ecstasy) Screen Negative Benzodiazepines Screen Negative [place] 0.6 Cocaine Screen Negative U Marijuana (THC) Screen Negative 04/29/17 04/30/17 05/01/17 05:38 06:20 06:30 WBC Sodium Potassium Chloride Carbon Dioxide Anion Gap BUN Creatinine 1.9 H 1.5 H D 1.5 H Urine Osmolality Ur 24 Hour Volume Opiates Screen Methadone Screen Barbiturate Screen Phencyclidine Screen Ur Amphetamines Screen MDMA (Ecstasy) Screen Benzodiazepines Screen [place] Cocaine Screen U Marijuana (THC) Screen 05/02/17 05/03/17 05/04/17 06:30 06:40 07:47 WBC Sodium Potassium Chloride Carbon Dioxide Anion Gap BUN Creatinine 1.7 H 1.5 H 1.4 H Urine Osmolality Ur 24 Hour Volume Opiates Screen Methadone Screen Barbiturate Screen Phencyclidine Screen Ur Amphetamines Screen MDMA (Ecstasy) Screen Benzodiazepines Screen [place] Cocaine Screen U Marijuana (THC) Screen 05/05/17 05/06/17 05/06/17 10:03 06:05 06:05 WBC 15.9 H D Sodium Potassium Chloride Carbon Dioxide Anion Gap BUN Creatinine 1.3 1.4 H Urine Osmolality Ur 24 Hour Volume Opiates Screen Methadone Screen Barbiturate Screen Phencyclidine Screen Ur Amphetamines Screen MDMA (Ecstasy) Screen Benzodiazepines Screen [place] Cocaine Screen U Marijuana (THC) Screen 05/06/17 05/07/17 05/07/17 18:18 06:30 06:30 WBC 17.2 H Sodium Potassium Chloride Carbon Dioxide Anion Gap BUN Creatinine 1.2 Urine Osmolality Ur 24 Hour Volume Opiates Screen Methadone Screen Barbiturate Screen Phencyclidine Screen Ur Amphetamines Screen MDMA (Ecstasy) Screen Benzodiazepines Screen [place] 0.8 Cocaine Screen U Marijuana (THC) Screen 05/08/17 05/08/17 05/08/17 06:00 06:00 07:00 WBC 16.1 H Sodium 138 Potassium 4.7 Chloride 106 Carbon Dioxide 24 Anion Gap 8 BUN 26 H Creatinine 1.4 H Urine Osmolality Ur 24 Hour Volume 5000 Opiates Screen Methadone Screen Barbiturate Screen Phencyclidine Screen Ur Amphetamines Screen MDMA (Ecstasy) Screen Benzodiazepines Screen [place] Cocaine Screen U Marijuana (THC) Screen 05/08/17 15:30 WBC Sodium Potassium Chloride Carbon Dioxide Anion Gap BUN Creatinine Urine Osmolality 220 L Ur 24 Hour Volume Opiates Screen Methadone Screen Barbiturate Screen Phencyclidine Screen Ur Amphetamines Screen MDMA (Ecstasy) Screen Benzodiazepines Screen [place] Cocaine Screen U Marijuana (THC) Screen Imaging - Results Chest X-ray: Report Reviewed Problem List - Problems (1) Acute kidney injury Code(s): N17.9 - ACUTE KIDNEY FAILURE, UNSPECIFIED (2) Bacteremia Code(s): R78.81 - BACTEREMIA (3) Leukocytosis Code(s): D72.829 - ELEVATED WHITE BLOOD CELL COUNT, UNSPECIFIED (4) Sepsis Code(s): A41.9 - SEPSIS, UNSPECIFIED ORGANISM Qualifiers: Sepsis type: sepsis due to unspecified organism Qualified Code(s): A41.9 - Sepsis, unspecified organism (5) UTI (urinary tract infection) Code(s): N39.0 - URINARY TRACT INFECTION, SITE NOT SPECIFIED Qualifiers: Urinary tract infection type: site unspecified Hematuria presence: with hematuria Qualified Code(s): N39.0 - Urinary tract infection, site not specified; R31.9 - Hematuria, unspecified Assessment/Plan Current Medications Generic Name Dose Route Start Last Admin Trade Name Freq PRN Reason Stop Dose Admin Acetaminophen 650 mg 04/28/17 23:45 05/03/17 14:03 Tylenol - PO 650 mg Q6H PRN Administration PAIN SCALE 6-10 Bethanechol Chloride 50 mg 05/04/17 14:57 05/09/17 09:52 Urecholine - PO 50 mg BID NAT Administration Diphenhydramine HCl 25 mg 05/01/17 20:38 05/03/17 17:39 Benadryl - PO 25 mg Q6H PRN Administration FOR ITCHING Heparin Sodium (Porcine) 5,000 unit 05/05/17 22:00 05/09/17 09:52 Heparin - SQ 5,000 unit BID ANT Administration Meropenem 1 gm/ Dextrose 100 mls @ 200 mls/hr 05/08/17 18:00 05/09/17 09:53 IVPB 200 mls/hr Q8H-IV ANT Administration Protocol [place] Carbonate 450 mg 04/29/17 10:00 05/09/17 09:52 Eskalith - PO 450 mg BID ANT Administration Ondansetron HCl 4 mg 04/28/17 23:24 Zofran Injection IVPB Q6H PRN NAUSEA Tamsulosin HCl 0.8 mg 05/04/17 22:00 05/08/17 21:16 Flomax - PO 0.8 mg HS ANT Administration Impression 1. UTI 2. sepsis 3. polyuria 4. bipolar 5. BPH Plan - fluid restrict pt to one liter - repeat bmp in am - repeat osm in am - if polyuria persists through the day please repeat labs to check serum sodium - check plasma osm in am as well - would like to see how pt behaves with a fluid restriction - nephrogenic DI from [place] remains in differential Dr Greene
--- NOTE | 2017-05-09 17:01 | PN ---
Physical Exam: SUBJECTIVE: Patient seen and examined at bedside. Pt afebrile, has no new complaints. Coleman draining clear urine. No dysuria. OBJECTIVE: Vital Signs Period Temp Pulse Resp BP Sys/Ospina Pulse Ox Last 24 Hr 97.8 F-98.7 F 62-75 18-20 109-135/60-85 97-98 GENERAL: The patient is awake, alert, and fully oriented, in no acute distress. HEAD: Normal with no signs of trauma. EYES: PERRL, extraocular movements intact, sclera anicteric, conjunctiva clear. No ptosis. NECK: Trachea midline, full range of motion, supple. LUNGS: Breath sounds equal, clear to auscultation bilaterally, no wheezes, no crackles, no accessory muscle use. HEART: Regular rate and rhythm, S1, S2 without murmur, rub or gallop. ABDOMEN: mildly distended, non-tender, normoactive bowel sounds, no guarding, no rebound, no hepatosplenomegaly, no masses. EXTREMITIES: 2+ posterior tibial pulses, warm, well-perfused, no edema. NEUROLOGICAL: Cranial nerves II through XII grossly intact. : coleman draining clear urine Laboratory Results - last 24 hr 05/08/17 07:00 Ur 24 Hour Volume 5000 Active Medications Generic Name Dose Route Start Last Admin Trade Name Darrelq PRN Reason Stop Dose Admin Acetaminophen 650 mg 04/28/17 23:45 05/03/17 14:03 Tylenol - PO 650 mg Q6H PRN Administration PAIN SCALE 6-10 Bethanechol Chloride 50 mg 05/04/17 14:57 05/09/17 09:52 Urecholine - PO 50 mg BID ANT Administration Diphenhydramine HCl 25 mg 05/01/17 20:38 05/03/17 17:39 Benadryl - PO 25 mg Q6H PRN Administration FOR ITCHING Heparin Sodium (Porcine) 5,000 unit 05/05/17 22:00 05/09/17 09:52 Heparin - SQ 5,000 unit BID ANT Administration Meropenem 1 gm/ Dextrose 100 mls @ 200 mls/hr 05/08/17 18:00 05/09/17 09:53 IVPB 200 mls/hr Q8H-IV ANT Administration Protocol [place] Carbonate 450 mg 04/29/17 10:00 05/09/17 09:52 Eskalith - PO 450 mg BID ANT Administration Ondansetron HCl 4 mg 04/28/17 23:24 Zofran Injection IVPB Q6H PRN NAUSEA Tamsulosin HCl 0.8 mg 05/04/17 22:00 05/08/17 21:16 Flomax - PO 0.8 mg HS ANT Administration ASSESSMENT/PLAN: This is a 56 yr old M with PMH of bipolar disorder (on [place]) and BPH s/p urodynamic testing and instrumentation, who presented to the ED for incontinence , dysuria, and polyuria for 2 days. Pt is admitted for sepsis secondary to UTI. # sepsis secondary to complicated UTI from E.coli (and Klebsiella bacteremia) -Has been afebrile, last leukocytosis 16.1, improving -Switched to Meropenem (Day 2) from Ertapenem #polyuria secondary possibly to nephrogenic DI from lithium -pt fluid restricted -F/u BMP, urine osm, plasma osm #JEAN possibly secondary to BPH -possibly d/t outflow obstruction -Continue Flomax 0.8 mg PO -Bethanechol 50 mg PO BID for urinary retention #Bipolar disorder -Continue [place] 450mg PO BID #Thrombocytopenia, possibly d/t sepsis- resolved -As per pt, he has only seen Dr. Negro, has no PCP - platelets 228 (baseline June 2016) -Platelets WNL #Hypomagnesemia- resolved -Supplement with Mg Cl 64mg qdaily -Will continue to follow levels #Altered mental status-resolved #DVT propylaxis -SCD's F/E/N monitor electrolytes regular diet Visit type - Emergency Visit Emergency Visit: No - New Patient This patient is new to me today: No - Critical Care Critical Care patient: No
[2017-05-09] MEDS: TAMSULOSIN HCL 0.4 MG CAP.ER.24H (FP) PO SCH (21:34)
[2017-05-09] MEDS: ACETAMINOPHEN 325 MG TABLET (FP) PO PRN (22:29)
[2017-05-10] MEDS ORDERED: PT OWN MED DRAWER 7, Y5N ONE ×4 (02:37→18:34)
[2017-05-10] MEDS: MEROPENEM 1 GM in DEXTROSE 5%-WATER - 100 ML IVPB SCH ×3 (02:44→18:35)
[2017-05-10 07:35] LABS: MCH 26.3 pg (25.7-33.7); MCHC 32.4 g/dl (32.0-35.9); MEAN CELL VOLUME 81.1 fl (80-96); MEAN PLT VOLUME 9.5 fl (7.5-11.1); PLATELET COUNT 290 K/MM3 (134-434); RDW 15.4 % (11.9-15.9); WHITE BLOOD COUNT 14.3 K/mm3 (4.0-10.0)
[2017-05-10 08:35] LABS: ANION GAP 6 (8-16); CALCIUM 9.5 mg/dL (8.5-10.1); CO2 26 mmol/L (21-32); GLUCOSE,RANDOM 101 mg/dL (74-106)
[2017-05-10 08:36] LABS: CREATININE 1.3 mg/dL (0.7-1.3)
[2017-05-10] MEDS: HEPARIN NA (PORCINE) 5,000 UNITS/ML 1ML VIAL SQ SCH ×2 (09:37→21:26)
[2017-05-10] MEDS: LITHIUM CARBONATE 450 MG TABLET.ER PO SCH ×2 (09:37→21:43)
[2017-05-10] MEDS: BETHANECHOL CHLORIDE 25 MG TABLET PO SCH ×2 (09:37→21:26)
[2017-05-10 09:45] LABS: METAMYELOCYTE 1 % (0-2); MYELOCYTE 1 % (0-2)
--- NOTE | 2017-05-10 12:29 | PN ---
<Marilee Peralta - Last Filed: 05/10/17 13:19> Physical Exam: SUBJECTIVE: Patient seen and examined at bedside today. Pt stated that he does not have dysuria. Coleman maintained, draining clear urine w/o blood. Denies suprapubic tenderness, fever, or chills. Pt is currently fluid restricted to 1L. OBJECTIVE: Vital Signs Period Temp Pulse Resp BP Sys/Ospina Pulse Ox Last 24 Hr 98.0 F-98.3 F 56-81 19-21 106-155/62-96 98-98 GENERAL: The patient is awake, alert, and fully oriented, in no acute distress. HEAD: Normal with no signs of trauma. EYES: PERRL, extraocular movements intact, sclera anicteric, conjunctiva clear. NECK: Trachea midline, full range of motion, supple. LUNGS: Breath sounds equal, clear to auscultation bilaterally, no wheezes, no crackles, no accessory muscle use. HEART: Regular rate and rhythm, S1, S2 without murmur, rub or gallop. ABDOMEN: Soft, nontender, nondistended, normoactive bowel sounds, no guarding, no rebound EXTREMITIES: 2+ posterior tibial pulses, warm, well-perfused, no edema. NEUROLOGICAL: Cranial nerves II through XII grossly intact. Laboratory Results - last 24 hr 05/10/17 05/10/17 05/10/17 06:30 06:30 06:30 WBC 14.3 H RBC 4.93 Hgb 13.0 Hct 40.0 MCV 81.1 MCH 26.3 MCHC 32.4 RDW 15.4 Plt Count 290 D MPV 9.5 Neutrophils % Y Neutrophils % (Manual) 71 Band Neuts % (Manual) 1 Lymphocytes % Y Lymphocytes % (Manual) 18 Monocytes % (Manual) 3 L Eosinophils % (Manual) 4 Basophils % (Manual) No Result Required. Myelocytes % (Man) 1 Promyelocytes % (Man) No Result Required. Blast Cells % (Manual) No Result Required. Nucleated RBC % No Result Required. Plasma Cells No Result Required. Sodium 138 Potassium 4.5 Chloride 106 Carbon Dioxide 26 Anion Gap 6 L BUN 23 H Creatinine 1.3 Random Glucose 101 Serum Osmolality 298 Calcium 9.5 Urine Osmolality 05/10/17 07:30 WBC RBC Hgb Hct MCV MCH MCHC RDW Plt Count MPV Neutrophils % Neutrophils % (Manual) Band Neuts % (Manual) Lymphocytes % Lymphocytes % (Manual) Monocytes % (Manual) Eosinophils % (Manual) Basophils % (Manual) Myelocytes % (Man) Promyelocytes % (Man) Blast Cells % (Manual) Nucleated RBC % Plasma Cells Sodium Potassium Chloride Carbon Dioxide Anion Gap BUN Creatinine Random Glucose Serum Osmolality Calcium Urine Osmolality 381 D Active Medications Generic Name Dose Route Start Last Admin Trade Name Freq PRN Reason Stop Dose Admin Acetaminophen 650 mg 04/28/17 23:45 05/09/17 22:29 Tylenol - PO 650 mg Q6H PRN Administration PAIN SCALE 6-10 Bethanechol Chloride 50 mg 05/04/17 14:57 05/10/17 09:37 Urecholine - PO 50 mg BID ANT Administration Diphenhydramine HCl 25 mg 05/01/17 20:38 05/03/17 17:39 Benadryl - PO 25 mg Q6H PRN Administration FOR ITCHING Heparin Sodium (Porcine) 5,000 unit 05/05/17 22:00 05/10/17 09:37 Heparin - SQ 5,000 unit BID ANT Administration Meropenem 1 gm/ Dextrose 100 mls @ 200 mls/hr 05/08/17 18:00 05/10/17 09:36 IVPB 200 mls/hr Q8H-IV ANT Administration Protocol [place] Carbonate 450 mg 04/29/17 10:00 05/10/17 09:37 Eskalith - PO 450 mg BID ANT Administration Ondansetron HCl 4 mg 04/28/17 23:24 Zofran Injection IVPB Q6H PRN NAUSEA Tamsulosin HCl 0.8 mg 05/04/17 22:00 05/09/17 21:34 Flomax - PO 0.8 mg HS ANT Administration ASSESSMENT/PLAN: This is a 56 yr old M with PMH of bipolar disorder (on [place]) and BPH s/p urodynamic testing and instrumentation, who presented to the ED for incontinence , dysuria, and polyuria for 2 days. Pt is admitted for sepsis secondary to UTI. # sepsis secondary to complicated UTI from E.coli (and Klebsiella bacteremia) -Has been afebrile, leukocytosis 14.3 -Switched to Meropenem (Day 3) from Ertapenem -IV abx approved by home agency #polyuria secondary possibly to nephrogenic DI from lithium -pt fluid restricted to 1L -Electrolytes from BMP WNL, urine osm WNL 381, urine vol 1800ml today so far -F/u nephro suggestions #JEAN possibly secondary to BPH -possibly d/t outflow obstruction -Continue Flomax 0.8 mg PO -Bethanechol 50 mg PO BID for urinary retention #Bipolar disorder -Continue [place] 450mg PO BID #Thrombocytopenia, possibly d/t sepsis- resolved -As per pt, he has only seen Dr. Negro, has no PCP - platelets 228 (baseline June 2016) -Platelets WNL #Hypomagnesemia- resolved -Supplement with Mg Cl 64mg qdaily -Will continue to follow levels #Altered mental status-resolved #DVT propylaxis -SCD's F/E/N -fluid restriction to 1L monitor electrolytes regular diet Disposition IV abx approved by home agency, january d/c once leukocytosis trends down pt has been afebrile >48hrs <Araseli Hardwick - Last Filed: 05/10/17 17:09> Physical Exam: SUBJECTIVE: Patient seen and examined Patient is on the chair, comfortable with no acute distress. OBJECTIVE: Vital Signs Temperature 97.3 F L 05/10/17 14:00 Pulse Rate 63 05/10/17 14:00 Respiratory Rate 17 05/10/17 14:00 Blood Pressure 120/70 05/10/17 09:18 O2 Sat by Pulse Oximetry (%) 98 05/10/17 09:00 CBCD WBC 14.3 K/mm3 (4.0-10.0) H 05/10/17 06:30 RBC 4.93 M/mm3 (4.00-5.60) 05/10/17 06:30 Hgb 13.0 GM/dL (11.7-16.9) 05/10/17 06:30 Hct 40.0 % (35.4-49) 05/10/17 06:30 MCV 81.1 fl (80-96) 05/10/17 06:30 MCHC 32.4 g/dl (32.0-35.9) 05/10/17 06:30 RDW 15.4 % (11.9-15.9) 05/10/17 06:30 Plt Count 290 K/MM3 (134-434) D 05/10/17 06:30 MPV 9.5 fl (7.5-11.1) 05/10/17 06:30 CMP Sodium 138 mmol/L (136-145) 05/10/17 06:30 Potassium 4.5 mmol/L (3.5-5.1) 05/10/17 06:30 Chloride 106 mmol/L (98-107) 05/10/17 06:30 Carbon Dioxide 26 mmol/L (21-32) 05/10/17 06:30 Anion Gap 6 (8-16) L 05/10/17 06:30 BUN 23 mg/dL (7-18) H 05/10/17 06:30 Creatinine 1.3 mg/dL (0.7-1.3) 05/10/17 06:30 Creat Clearance w eGFR 36.72 (>60) 04/29/17 05:38 Random Glucose 101 mg/dL (74-106) 05/10/17 06:30 Calcium 9.5 mg/dL (8.5-10.1) 05/10/17 06:30 Total Bilirubin 1.5 mg/dL (0.2-1.0) H 04/29/17 05:38 AST 37 U/L (15-37) D 04/29/17 05:38 ALT 60 U/L (12-78) D 04/29/17 05:38 Alkaline Phosphatase 43 U/L (45-117) L 04/29/17 05:38 Total Protein 5.8 g/dl (6.4-8.2) L 04/29/17 05:38 Albumin 2.8 g/dl (3.4-5.0) L 04/29/17 05:38 CARDIAC ENZYMES Creatine Kinase 209 IU/L (39-308) 04/28/17 21:24 Troponin I < 0.02 ng/ml (0.00-0.05) 04/28/17 21:24 Current Medications Generic Name Dose Route Start Last Admin Trade Name King PRN Reason Stop Dose Admin Acetaminophen 650 mg 04/28/17 23:45 05/09/17 22:29 Tylenol - PO 650 mg Q6H PRN Administration PAIN SCALE 6-10 Bethanechol Chloride 50 mg 05/04/17 14:57 05/10/17 09:37 Urecholine - PO 50 mg BID ANT Administration Diphenhydramine HCl 25 mg 05/01/17 20:38 05/03/17 17:39 Benadryl - PO 25 mg Q6H PRN Administration FOR ITCHING Heparin Sodium (Porcine) 5,000 unit 05/05/17 22:00 05/10/17 09:37 Heparin - SQ 5,000 unit BID ANT Administration Meropenem 1 gm/ Dextrose 100 mls @ 200 mls/hr 05/08/17 18:00 05/10/17 09:36 IVPB 200 mls/hr Q8H-IV ANT Administration Protocol [place] Carbonate 450 mg 04/29/17 10:00 05/10/17 09:37 Eskalith - PO 450 mg BID ANT Administration Ondansetron HCl 4 mg 04/28/17 23:24 Zofran Injection IVPB Q6H PRN NAUSEA Tamsulosin HCl 0.8 mg 05/04/17 22:00 05/09/17 21:34 Flomax - PO 0.8 mg HS ANT Administration Home Medications Medication Instructions Recorded [place] Aspartate [Lithate] 0 mg PO DAILY 04/28/17 [place] Carbonate [Eskalith -] 450 mg PO BID 04/29/17 Tamsulosin HCl [Flomax] 0.4 mg PO DAILY 04/29/17 Microbiology 05/07/17 13:15 Blood - Peripheral Venous Blood Culture - Preliminary NO GROWTH OBTAINED AFTER 72 HOURS, INCUBATION TO CONTINUE FOR 2 DAYS. 05/07/17 13:10 Blood - Peripheral Venous Blood Culture - Preliminary NO GROWTH OBTAINED AFTER 72 HOURS, INCUBATION TO CONTINUE FOR 2 DAYS. 05/04/17 12:45 Blood - Arterial Blood Culture - Final NO GROWTH AFTER 5 DAYS INCUBATION 05/04/17 12:40 Blood - Arterial Blood Culture - Final NO GROWTH AFTER 5 DAYS INCUBATION 05/01/17 21:11 Blood - Peripheral Venous Blood Culture - Final NO GROWTH AFTER 5 DAYS INCUBATION 05/01/17 21:05 Blood - Peripheral Venous Blood Culture - Final Klebsiella Pneumoniae 04/28/17 21:47 Blood - Peripheral Venous Blood Culture - Final NO GROWTH AFTER 5 DAYS INCUBATION 04/28/17 21:24 Urine - Urine Clean Catch Urine Culture - Final Escherichia Coli 04/28/17 21:10 Blood - Peripheral Venous Blood Culture - Final Klebsiella Pneumoniae ASSESSMENT/PLAN: 56-year-old man with a history of bipolar disorder, BPH, urinary incontinence who presented to the ER with dysuria, polyuria, and confusion. # Gram negative Bacteremia; Kliebsiella Pneumoniae: on IV antibiotic Merepenem continue # Sepsis secondary to UTI and gram negative bacteremia post urodynamic studies. On IV antibiotic continue # Polyuria- concern for DI. ULN Sosm and low Uosm. continue to restrict water. Nephro on the case. #s/p Acute metabolic encephalopathy secondary to sepsis- Resolved # Acute kidney injury improving due to sepsis, possible obstruction from BPH, on flomax continue avoid nephrotoxic agents. # Bipolar disorder- Continue [place]. level normal # BPH with urinary incontinence, coleman in place continue , follow with as an outpatient for further workup. cont flomax, bethanechol # s/p hypomagnesemia-normal level # pre-diabetes- A1c 6.1. counseled pt on dietary changes. nutrition consult for appropriate diet # s/p Thrombocytopenia improved # class II obesity DVT ppx- hep sq Visit type - Emergency Visit Emergency Visit: Yes ED Registration Date: 04/28/17 Care time: The patient presented to the Emergency Department on the above date and was hospitalized for further evaluation of their emergent condition. - New Patient This patient is new to me today: Yes Date on this admission: 05/10/17 - Critical Care Critical Care patient: No
--- NOTE | 2017-05-10 14:06 | PN ---
Progress Note, Physician History of Present Illness: stable no issues wbc trending down - Current Medication List Current Medications: Active Medications Acetaminophen (Tylenol -) 650 mg PO Q6H PRN PRN Reason: PAIN SCALE 6-10 Last Admin: 05/09/17 22:29 Dose: 650 mg Bethanechol Chloride (Urecholine -) 50 mg PO BID [facility] Last Admin: 05/10/17 09:37 Dose: 50 mg Diphenhydramine HCl (Benadryl -) 25 mg PO Q6H PRN PRN Reason: FOR ITCHING Last Admin: 05/03/17 17:39 Dose: 25 mg Heparin Sodium (Porcine) (Heparin -) 5,000 unit SQ BID [facility] Last Admin: 05/10/17 09:37 Dose: 5,000 unit Meropenem 1 gm/ Dextrose 100 mls @ 200 mls/hr IVPB Q8H-IV ANT PRN Reason: Protocol Last Admin: 05/10/17 09:36 Dose: 200 mls/hr [place] Carbonate (Eskalith -) 450 mg PO BID [facility] Last Admin: 05/10/17 09:37 Dose: 450 mg Ondansetron HCl (Zofran Injection) 4 mg IVPB Q6H PRN PRN Reason: NAUSEA Tamsulosin HCl (Flomax -) 0.8 mg PO HS [facility] Last Admin: 05/09/17 21:34 Dose: 0.8 mg - Objective Vital Signs: Vital Signs Temperature 98.3 F 05/10/17 09:18 Pulse Rate 81 05/10/17 09:18 Respiratory Rate 20 05/10/17 09:18 Blood Pressure 120/70 05/10/17 09:18 O2 Sat by Pulse Oximetry (%) 98 05/10/17 09:00 Constitutional: Yes: No Distress, Calm Cardiovascular: Yes: Regular Rate and Rhythm Respiratory: Yes: Regular, CTA Bilaterally Gastrointestinal: Yes: Normal Bowel Sounds, Soft Musculoskeletal: Yes: WNL Extremities: Yes: WNL Neurological: Yes: Alert, Oriented Psychiatric: Yes: Alert, Oriented Labs: CBC, BMP 05/10/17 06:30 05/10/17 06:30 INR, PTT INR 2.05 (0.82-1.09) H 04/29/17 05:38 Assessment/Plan 1) Sepsis secondary to UTI, complicated 2) Altered mental status 3) JEAN suspected vs CKD 4) History Bipolar disorder 5) BPH suspected 6 bacteremia gm negative 7 leukocytosis wbc still high blood cx pending plan continue fco blood cx negative so far wbc trending down by we will decide if patient can be switched to oral abx which he will need for some time
--- NOTE | 2017-05-10 15:49 | PN ---
Progress Note, Physician History of Present Illness: Pt seen and examined at bedside. He is awake and alert. - Current Medication List Current Medications: Active Medications Acetaminophen (Tylenol -) 650 mg PO Q6H PRN PRN Reason: PAIN SCALE 6-10 Last Admin: 05/09/17 22:29 Dose: 650 mg [place] Chloride (Urecholine -) 50 mg PO BID [facility] Last Admin: 05/10/17 09:37 Dose: 50 mg Diphenhydramine HCl (Benadryl -) 25 mg PO Q6H PRN PRN Reason: FOR ITCHING Last Admin: 05/03/17 17:39 Dose: 25 mg Heparin Sodium (Porcine) (Heparin -) 5,000 unit SQ BID [facility] Last Admin: 05/10/17 09:37 Dose: 5,000 unit Meropenem 1 gm/ Dextrose 100 mls @ 200 mls/hr IVPB Q8H-IV ANT PRN Reason: Protocol Last Admin: 05/10/17 09:36 Dose: 200 mls/hr [place] Carbonate (Eskalith -) 450 mg PO BID [facility] Last Admin: 05/10/17 09:37 Dose: 450 mg Ondansetron HCl (Zofran Injection) 4 mg IVPB Q6H PRN PRN Reason: NAUSEA Tamsulosin HCl (Flomax -) 0.8 mg PO HS [facility] Last Admin: 05/09/17 21:34 Dose: 0.8 mg - Objective Vital Signs: Vital Signs Temperature 97.3 F L 05/10/17 14:00 Pulse Rate 63 05/10/17 14:00 Respiratory Rate 17 05/10/17 14:00 Blood Pressure 120/70 05/10/17 09:18 O2 Sat by Pulse Oximetry (%) 98 05/10/17 09:00 Constitutional: Yes: Calm Eyes: Yes: Conjunctiva Clear HENT: Yes: Atraumatic Neck: Yes: Supple Cardiovascular: Yes: S1, S2 Respiratory: Yes: CTA Bilaterally Gastrointestinal: Yes: Normal Bowel Sounds, Soft Genitourinary: Yes: [place] Present Musculoskeletal: Yes: WNL Edema: No Neurological: Yes: Oriented Psychiatric: Yes: Oriented Labs: CBC, BMP 05/10/17 06:30 05/10/17 06:30 INR, PTT INR 2.05 (0.82-1.09) H 04/29/17 05:38 Problem List - Problems (1) Acute kidney injury Code(s): N17.9 - ACUTE KIDNEY FAILURE, UNSPECIFIED (2) Bacteremia Code(s): R78.81 - BACTEREMIA (3) Leukocytosis Code(s): D72.829 - ELEVATED WHITE BLOOD CELL COUNT, UNSPECIFIED (4) Sepsis Code(s): A41.9 - SEPSIS, UNSPECIFIED ORGANISM Qualifiers: Sepsis type: sepsis due to unspecified organism Qualified Code(s): A41.9 - Sepsis, unspecified organism (5) UTI (urinary tract infection) Code(s): N39.0 - URINARY TRACT INFECTION, SITE NOT SPECIFIED Qualifiers: Urinary tract infection type: site unspecified Hematuria presence: with hematuria Qualified Code(s): N39.0 - Urinary tract infection, site not specified; R31.9 - Hematuria, unspecified Assessment/Plan Current Medications Generic Name Dose Route Start Last Admin Trade Name Freq PRN Reason Stop Dose Admin Acetaminophen 650 mg 04/28/17 23:45 05/09/17 22:29 Tylenol - PO 650 mg Q6H PRN Administration PAIN SCALE 6-10 Bethanechol Chloride 50 mg 05/04/17 14:57 05/10/17 09:37 Urecholine - PO 50 mg BID ANT Administration Diphenhydramine HCl 25 mg 05/01/17 20:38 05/03/17 17:39 Benadryl - PO 25 mg Q6H PRN Administration FOR ITCHING Heparin Sodium (Porcine) 5,000 unit 05/05/17 22:00 05/10/17 09:37 Heparin - SQ 5,000 unit BID ANT Administration Meropenem 1 gm/ Dextrose 100 mls @ 200 mls/hr 05/08/17 18:00 05/10/17 09:36 IVPB 200 mls/hr Q8H-IV ANT Administration Protocol [place] Carbonate 450 mg 04/29/17 10:00 05/10/17 09:37 Eskalith - PO 450 mg BID ANT Administration Ondansetron HCl 4 mg 04/28/17 23:24 Zofran Injection IVPB Q6H PRN NAUSEA Tamsulosin HCl 0.8 mg 05/04/17 22:00 05/09/17 21:34 Flomax - PO 0.8 mg HS ANT Administration Laboratory Tests 05/08/17 05/10/17 15:30 07:30 Urine Osmolality 220 L 381 D Impression 1. UTI 2. sepsis 3. polyuria 4. bipolar 5. BPH 6. JEAN Plan - pts urine oms increase with fluid restriction and his urine output decreased - cont with fluid restriction and repeat labs in am - repeat osm in am as well - plasma sodium is stable - likely polyuria is multifactorial including polydipsia - pt also had JEAN and sepsis on presentation Dr Greene
[2017-05-10] MEDS: TAMSULOSIN HCL 0.4 MG CAP.ER.24H (FP) PO SCH (21:26)
[2017-05-11] MEDS: MEROPENEM 1 GM in DEXTROSE 5%-WATER - 100 ML IVPB SCH ×3 (02:38→17:45)
[2017-05-11 07:30] LABS: MCHC 31.7 g/dl (32.0-35.9); MEAN CELL VOLUME 82.1 fl (80-96); MEAN PLT VOLUME 9.3 fl (7.5-11.1); PLATELET COUNT 336 K/MM3 (134-434); WHITE BLOOD COUNT 13.7 K/mm3 (4.0-10.0)
[2017-05-11 07:51] LABS: ANION GAP 6 (8-16); CALCIUM 9.6 mg/dL (8.5-10.1); CO2 28 mmol/L (21-32); CREATININE 1.5 mg/dL (0.7-1.3); GLUCOSE,RANDOM 117 mg/dL (74-106)
[2017-05-11] MEDS ORDERED: PT OWN MED DRAWER 7, Y5N ONE ×2 (09:24→17:44)
[2017-05-11] MEDS: HEPARIN NA (PORCINE) 5,000 UNITS/ML 1ML VIAL SQ SCH ×2 (09:40→21:31)
[2017-05-11] MEDS: BETHANECHOL CHLORIDE 25 MG TABLET PO SCH ×2 (09:40→21:31)
[2017-05-11] MEDS: LITHIUM CARBONATE 450 MG TABLET.ER PO SCH ×2 (09:41→21:32)
--- NOTE | 2017-05-11 13:37 | PN ---
Progress Note, Physician History of Present Illness: Pt seen and examined at bedside. He is awake and alert. He has no complaints. - Current Medication List Current Medications: Active Medications Acetaminophen (Tylenol -) 650 mg PO Q6H PRN PRN Reason: PAIN SCALE 6-10 Last Admin: 05/09/17 22:29 Dose: 650 mg Bethanechol Chloride (Urecholine -) 50 mg PO BID [facility] Last Admin: 05/11/17 09:40 Dose: 50 mg Diphenhydramine HCl (Benadryl -) 25 mg PO Q6H PRN PRN Reason: FOR ITCHING Last Admin: 05/03/17 17:39 Dose: 25 mg Heparin Sodium (Porcine) (Heparin -) 5,000 unit SQ BID [facility] Last Admin: 05/11/17 09:40 Dose: 5,000 unit Meropenem 1 gm/ Dextrose 100 mls @ 200 mls/hr IVPB Q8H-IV ANT PRN Reason: Protocol Last Admin: 05/11/17 09:40 Dose: 200 mls/hr [place] Carbonate (Eskalith -) 450 mg PO BID [facility] Last Admin: 05/11/17 09:41 Dose: 450 mg Ondansetron HCl (Zofran Injection) 4 mg IVPB Q6H PRN PRN Reason: NAUSEA Tamsulosin HCl (Flomax -) 0.8 mg PO HS [facility] Last Admin: 05/10/17 21:26 Dose: 0.8 mg - Objective Vital Signs: Vital Signs Temperature 97.5 F L 05/11/17 09:38 Pulse Rate 72 05/11/17 09:38 Respiratory Rate 18 05/11/17 09:38 Blood Pressure 114/68 05/11/17 09:38 O2 Sat by Pulse Oximetry (%) 96 05/11/17 09:00 Constitutional: Yes: Calm Eyes: Yes: Conjunctiva Clear HENT: Yes: Atraumatic Cardiovascular: Yes: S1, S2 Respiratory: Yes: CTA Bilaterally Gastrointestinal: Yes: Soft Genitourinary: Yes: WNL Musculoskeletal: Yes: WNL Edema: No Neurological: Yes: Oriented Psychiatric: Yes: Oriented Labs: CBC, BMP 05/11/17 06:35 05/11/17 06:35 INR, PTT INR 2.05 (0.82-1.09) H 04/29/17 05:38 Problem List - Problems (1) Acute kidney injury Code(s): N17.9 - ACUTE KIDNEY FAILURE, UNSPECIFIED (2) Bacteremia Code(s): R78.81 - BACTEREMIA (3) Leukocytosis Code(s): D72.829 - ELEVATED WHITE BLOOD CELL COUNT, UNSPECIFIED (4) Sepsis Code(s): A41.9 - SEPSIS, UNSPECIFIED ORGANISM Qualifiers: Qualified Code(s): A41.9 - Sepsis, unspecified organism (5) UTI (urinary tract infection) Code(s): N39.0 - URINARY TRACT INFECTION, SITE NOT SPECIFIED Qualifiers: Qualified Code(s): N39.0 - Urinary tract infection, site not specified; R31.9 - Hematuria, unspecified Assessment/Plan Current Medications Generic Name Dose Route Start Last Admin Trade Name Freq PRN Reason Stop Dose Admin Acetaminophen 650 mg 04/28/17 23:45 05/09/17 22:29 Tylenol - PO 650 mg Q6H PRN Administration PAIN SCALE 6-10 Bethanechol Chloride 50 mg 05/04/17 14:57 05/11/17 09:40 Urecholine - PO 50 mg BID ANT Administration Diphenhydramine HCl 25 mg 05/01/17 20:38 05/03/17 17:39 Benadryl - PO 25 mg Q6H PRN Administration FOR ITCHING Heparin Sodium (Porcine) 5,000 unit 05/05/17 22:00 05/11/17 09:40 Heparin - SQ 5,000 unit BID ANT Administration Meropenem 1 gm/ Dextrose 100 mls @ 200 mls/hr 05/08/17 18:00 05/11/17 09:40 IVPB 200 mls/hr Q8H-IV ANT Administration Protocol [place] Carbonate 450 mg 04/29/17 10:00 05/11/17 09:41 Eskalith - PO 450 mg BID ANT Administration Ondansetron HCl 4 mg 04/28/17 23:24 Zofran Injection IVPB Q6H PRN NAUSEA Tamsulosin HCl 0.8 mg 05/04/17 22:00 05/10/17 21:26 Flomax - PO 0.8 mg HS ANT Administration Laboratory Tests 05/08/17 05/10/17 05/11/17 15:30 07:30 06:00 Urine Osmolality 220 L 381 D 434 Impression 1. UTI 2. sepsis 3. polyuria 4. bipolar 5. BPH 6. JEAN Plan - pt does have the ability to concentrate his urine - can be more liberal with fluid intake, increase to 1.5 liters - client care coordinator is elevated and pt will need a CKD workup which can be done in the office - case and plan discussed with urology - discussed with pt and his mother - likely polyuria is multifactorial including polydipsia Dr Greene
--- NOTE | 2017-05-11 13:54 | PN ---
Teaching Attending Note Name of Resident: Marilee Peralta ATTENDING PHYSICIAN STATEMENT I saw and evaluated the patient. I reviewed the resident's note and discussed the case with the resident. I agree with the resident's findings and plan as documented. SUBJECTIVE:resting comfortable. no difficulty urinating. denies Cp, SOB, fever, chills, urinary frequency or urgency no hematuria OBJECTIVE: Last Vital Signs Temp Pulse Resp BP Pulse Ox 97.5 F L 72 18 114/68 96 05/11/17 09:38 05/11/17 09:38 05/11/17 09:38 05/11/17 09:38 05/11/17 09:00 Intake & Output 05/08/17 05/09/17 05/10/17 05/11/17 23:59 23:59 23:59 23:59 Intake Total 500 160 750 200 Output Total 4150 3300 3150 1050 Balance -8320 -3507 -3194 -850 General NAD abdomen soft NT/ND no suprapubic distention ASSESSMENT AND PLAN: 56-year-old man with a history of bipolar disorder, BPH, urinary incontinence who presented to the ER with dysuria, polyuria, and confusion. 1. Sepsis secondary to UTI and gram negative bacteremia after urodynamic studies -afebrile, mild improvement in leukocytosis. on meropenem. will likely be able to switch to po tomorrow and will no longer require PICC placment.ID on board 2. Polyuria- concern for DI. likley due to polydipsia. able to concentrate urine appropriately. will require 1.5L water restriction daily. informed pt that he should limit intake. appreciate neprho input 3. Acute metabolic encephalopathy secondary to sepsis- Resolved 4. Acute kidney injury secondary to sepsis, possible obstruction from BPH- stable. will need outpatient follow up. avoid nephrotoxic agents. 5. Bipolar disorder- Continue [place]. level normal 6. BPH with urinary incontinence-c[place] removed this AM. post void 220. urinating well. cont flomax, bethanechol 7. hypomagnesemia-normal level 8. pre-diabetes- A1c 6.1. counseled pt on dietary changes. nutrition consult for appropriate diet 9. Thrombocytopenia- likely due to sepsis? now improving. according to PMD last platelet count was 228. 10. class II obesity 11. DVT ppx- hep sq 12. d/c planning in AM
--- NOTE | 2017-05-11 14:47 | PN ---
Progress Note, Physician History of Present Illness: stable no issues wbc trending down no complaint - Current Medication List Current Medications: Active Medications Acetaminophen (Tylenol -) 650 mg PO Q6H PRN PRN Reason: PAIN SCALE 6-10 Last Admin: 05/09/17 22:29 Dose: 650 mg Bethanechol Chloride (Urecholine -) 50 mg PO BID [facility] Last Admin: 05/11/17 09:40 Dose: 50 mg Diphenhydramine HCl (Benadryl -) 25 mg PO Q6H PRN PRN Reason: FOR ITCHING Last Admin: 05/03/17 17:39 Dose: 25 mg Heparin Sodium (Porcine) (Heparin -) 5,000 unit SQ BID [facility] Last Admin: 05/11/17 09:40 Dose: 5,000 unit Meropenem 1 gm/ Dextrose 100 mls @ 200 mls/hr IVPB Q8H-IV ANT PRN Reason: Protocol Last Admin: 05/11/17 09:40 Dose: 200 mls/hr [place] Carbonate (Eskalith -) 450 mg PO BID [facility] Last Admin: 05/11/17 09:41 Dose: 450 mg Ondansetron HCl (Zofran Injection) 4 mg IVPB Q6H PRN PRN Reason: NAUSEA Tamsulosin HCl (Flomax -) 0.8 mg PO HS [facility] Last Admin: 05/10/17 21:26 Dose: 0.8 mg - Objective Vital Signs: Vital Signs Temperature 97.8 F 05/11/17 14:00 Pulse Rate 64 05/11/17 14:00 Respiratory Rate 17 05/11/17 14:00 Blood Pressure 114/68 05/11/17 09:38 O2 Sat by Pulse Oximetry (%) 96 05/11/17 09:00 Constitutional: Yes: No Distress, Calm Neck: Yes: Supple Cardiovascular: Yes: Regular Rate and Rhythm Respiratory: Yes: Regular, CTA Bilaterally Gastrointestinal: Yes: Normal Bowel Sounds, Soft Musculoskeletal: Yes: WNL Extremities: Yes: WNL Neurological: Yes: Alert, Oriented Psychiatric: Yes: Alert, Oriented Labs: CBC, BMP 05/11/17 06:35 05/11/17 06:35 INR, PTT INR 2.05 (0.82-1.09) H 04/29/17 05:38 Assessment/Plan 1) Sepsis secondary to UTI, complicated 2) Altered mental status 3) JEAN suspected vs CKD 4) History Bipolar disorder 5) BPH suspected 6 bacteremia gm negative 7 leukocytosis wbc still high blood cx pending plan continue fco blood cx negative so far wbc trending down will see wbc tomorrow if trending down then we will switch to cipro 500 mg bid total duration for 15 days
--- NOTE | 2017-05-11 15:48 | PN ---
Physical Exam: SUBJECTIVE: Patient seen and examined at bedside. Pt states that he is feeling great, no dysuria, urinated 3x this morning since coleman removal at 5pm yesterday. 3150 ml last checked 24 urine output. Bladder scan from this afternoon: 237ml- much improved. WBCs trending down. Pt still water restricted to 1L. OBJECTIVE: Vital Signs Period Temp Pulse Resp BP Sys/[place] Pulse Ox Last 24 Hr 97.5 F-98.5 F 61-77 17-20 102-114/60-68 96-96 GENERAL: The patient is awake, alert, and fully oriented, in no acute distress. HEAD: Normal with no signs of trauma. EYES: PERRL, extraocular movements intact, sclera anicteric, conjunctiva clear. No ptosis. NECK: Trachea midline, full range of motion, supple. LUNGS: Breath sounds equal, clear to auscultation bilaterally, no wheezes, no crackles, no accessory muscle use. HEART: Regular rate and rhythm, S1, S2 without murmur, rub or gallop. ABDOMEN: Soft, nontender, nondistended, normoactive bowel sounds, no guarding, no rebound, no hepatosplenomegaly, no masses. EXTREMITIES: 2+ posterior tibial pulses, warm, well-perfused, no edema. NEUROLOGICAL: Cranial nerves II through XII grossly intact. Laboratory Results - last 24 hr 05/11/17 05/11/17 05/11/17 06:00 06:35 06:35 WBC 13.7 H RBC 5.14 Hgb 13.4 Hct 42.2 MCV 82.1 MCH 26.0 MCHC 31.7 L RDW 16.0 H Plt Count 336 MPV 9.3 Sodium 140 Potassium 4.4 Chloride 106 Carbon Dioxide 28 Anion Gap 6 L BUN 26 H Creatinine 1.5 H Random Glucose 117 H Serum Osmolality Calcium 9.6 Urine Osmolality 434 05/11/17 06:35 WBC RBC Hgb Hct MCV MCH MCHC RDW Plt Count MPV Sodium Potassium Chloride Carbon Dioxide Anion Gap BUN Creatinine Random Glucose Serum Osmolality 297 Calcium Urine Osmolality Active Medications Generic Name Dose Route Start Last Admin Trade Name Freq PRN Reason Stop Dose Admin Acetaminophen 650 mg 04/28/17 23:45 05/09/17 22:29 Tylenol - PO 650 mg Q6H PRN Administration PAIN SCALE 6-10 Bethanechol Chloride 50 mg 05/04/17 14:57 05/11/17 09:40 Urecholine - PO 50 mg BID ANT Administration Diphenhydramine HCl 25 mg 05/01/17 20:38 05/03/17 17:39 Benadryl - PO 25 mg Q6H PRN Administration FOR ITCHING Heparin Sodium (Porcine) 5,000 unit 05/05/17 22:00 05/11/17 09:40 Heparin - SQ 5,000 unit BID ANT Administration Meropenem 1 gm/ Dextrose 100 mls @ 200 mls/hr 05/08/17 18:00 05/11/17 09:40 IVPB 200 mls/hr Q8H-IV ANT Administration Protocol [place] Carbonate 450 mg 04/29/17 10:00 05/11/17 09:41 Eskalith - PO 450 mg BID ANT Administration Ondansetron HCl 4 mg 04/28/17 23:24 Zofran Injection IVPB Q6H PRN NAUSEA Tamsulosin HCl 0.8 mg 05/04/17 22:00 05/10/17 21:26 Flomax - PO 0.8 mg HS ANT Administration ASSESSMENT/PLAN: This is a 56 yr old M with PMH of bipolar disorder (on [place]) and BPH s/p urodynamic testing and instrumentation, who presented to the ED for incontinence , dysuria, and polyuria for 2 days. Pt is admitted for sepsis secondary to UTI. 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 Negro, has no PCP - platelets 228 (baseline June 2016) -Platelets WNL #Hypomagnesemia- resolved -Supplement with Mg Cl 64mg qdaily -Will continue to follow levels #Altered mental status-resolved #DVT prophylaxis -SCD's -Heparin 5000 SQ BID F/E/N -fluid restriction to 1L monitor electrolytes regular diet Disposition for possible d/c tomorrow if leukocytes keep trending down pt has been afebrile Visit type - Emergency Visit Emergency Visit: No - New Patient This patient is new to me today: No - Critical Care Critical Care patient: No
[2017-05-11] MEDS: TAMSULOSIN HCL 0.4 MG CAP.ER.24H (FP) PO SCH (21:31)
[2017-05-12] MEDS: MEROPENEM 1 GM in DEXTROSE 5%-WATER - 100 ML IVPB SCH ×2 (02:10→10:00)
[2017-05-12 06:23] VITALS: TEMP 98.1
[2017-05-12 08:39] LABS: MCH 26.8 pg (25.7-33.7); MCHC 32.8 g/dl (32.0-35.9); MEAN CELL VOLUME 81.9 fl (80-96); MEAN PLT VOLUME 9.7 fl (7.5-11.1); PLATELET COUNT 407 K/MM3 (134-434); RDW 16.1 % (11.9-15.9); WHITE BLOOD COUNT 13.5 K/mm3 (4.0-10.0)
[2017-05-12 08:54] LABS: ANION GAP 9 (8-16); CALCIUM 9.9 mg/dL (8.5-10.1); CO2 26 mmol/L (21-32); CREATININE 1.5 mg/dL (0.7-1.3); GLUCOSE,RANDOM 101 mg/dL (74-106)
[2017-05-12] MEDS ORDERED: PT OWN MED DRAWER 7, Y5N ONE (09:54)
[2017-05-12] MEDS: BETHANECHOL CHLORIDE 25 MG TABLET PO SCH (10:00)
[2017-05-12] MEDS: HEPARIN NA (PORCINE) 5,000 UNITS/ML 1ML VIAL SQ SCH (10:00)
[2017-05-12] MEDS: LITHIUM CARBONATE 450 MG TABLET.ER PO SCH (10:00)
[2017-05-12 13:15] LABS: METAMYELOCYTE 4 % (0-2); MYELOCYTE 1 % (0-2)
[2017-05-12 14:33] VITALS: BP 125/63; PULSE 77
--- NOTE | 2017-05-12 15:04 | PN ---
Progress Note, Physician History of Present Illness: doing well no issues - Current Medication List Current Medications: Active Medications Acetaminophen (Tylenol -) 650 mg PO Q6H PRN PRN Reason: PAIN SCALE 6-10 Last Admin: 05/09/17 22:29 Dose: 650 mg Bethanechol Chloride (Urecholine -) 50 mg PO BID [facility] Last Admin: 05/12/17 10:00 Dose: 50 mg Diphenhydramine HCl (Benadryl -) 25 mg PO Q6H PRN PRN Reason: FOR ITCHING Last Admin: 05/03/17 17:39 Dose: 25 mg Heparin Sodium (Porcine) (Heparin -) 5,000 unit SQ BID [facility] Last Admin: 05/12/17 10:00 Dose: 5,000 unit Meropenem 1 gm/ Dextrose 100 mls @ 200 mls/hr IVPB Q8H-IV ANT PRN Reason: Protocol Last Admin: 05/12/17 10:00 Dose: 200 mls/hr [place] Carbonate (Eskalith -) 450 mg PO BID [facility] Last Admin: 05/12/17 10:00 Dose: 450 mg Ondansetron HCl (Zofran Injection) 4 mg IVPB Q6H PRN PRN Reason: NAUSEA Tamsulosin HCl (Flomax -) 0.8 mg PO HS [facility] Last Admin: 05/11/17 21:31 Dose: 0.8 mg - Objective Vital Signs: Vital Signs Temperature 98.1 F 05/12/17 14:00 Pulse Rate 77 05/12/17 14:00 Respiratory Rate 17 05/12/17 14:00 Blood Pressure 125/63 05/12/17 14:00 O2 Sat by Pulse Oximetry (%) 95 05/11/17 20:25 Constitutional: Yes: No Distress, Calm Cardiovascular: Yes: Regular Rate and Rhythm Respiratory: Yes: Regular, CTA Bilaterally Gastrointestinal: Yes: Normal Bowel Sounds, Soft Musculoskeletal: Yes: WNL Extremities: Yes: WNL Neurological: Yes: Alert, Oriented Psychiatric: Yes: Alert, Oriented Labs: CBC, BMP 05/12/17 07:30 05/12/17 07:30 INR, PTT INR 2.05 (0.82-1.09) H 04/29/17 05:38 Assessment/Plan 1) Sepsis secondary to UTI, complicated 2) Altered mental status 3) JEAN suspected vs CKD 4) History Bipolar disorder 5) BPH suspected 6 bacteremia gm negative 7 leukocytosis plan switch patient to cipro 500 mg twice aday give it for 15 more days
--- NOTE | 2017-05-12 15:39 | PN ---
Teaching Attending Note Name of Resident: Marilee Peralta ATTENDING PHYSICIAN STATEMENT I saw and evaluated the patient. I reviewed the resident's note and discussed the case with the resident. I agree with the resident's findings and plan as documented. SUBJECTIVE:resting comfortable. no CP, SOB, fever, chills, dysuria OBJECTIVE: Last Vital Signs Temp Pulse Resp BP Pulse Ox 98.1 F 77 17 125/63 95 05/12/17 14:00 05/12/17 14:00 05/12/17 14:00 05/12/17 14:00 05/11/17 20:25 General NAD abdomen soft NT/ND no suprapubic distention ASSESSMENT AND PLAN: 56-year-old man with a history of bipolar disorder, BPH, urinary incontinence who presented to the ER with dysuria, polyuria, and confusion. 1. Sepsis secondary to UTI and gram negative bacteremia after urodynamic studies -afebrile, mild improvement in leukocytosis. on meropenem. will switch to cipro for additional 15 days. ID on board 2. Polyuria- concern for DI. likley due to polydipsia. urine concentrated appropiately. will require 1.5L water restriction daily. informed pt that he should limit intake. appreciate neprho input 3. Acute metabolic encephalopathy secondary to sepsis- Resolved 4. Acute kidney injury secondary to sepsis, possible obstruction from BPH- stable. will need outpatient follow up. avoid nephrotoxic agents. 5. Bipolar disorder- Continue [place]. level normal 6. BPH with urinary incontinence- urinating well. cont flomax, bethanechol 7. hypomagnesemia-normal level 8. pre-diabetes- A1c 6.1. counseled pt on dietary changes. nutrition consult for appropriate diet 9. Thrombocytopenia- likely due to sepsis? now improving. according to PMD last platelet count was 228. 10. class II obesity 11. DVT ppx- hep sq 12. d/c home on cipro
--- NOTE | 2017-05-12 15:39 | PN ---
Progress Note, Physician History of Present Illness: Pt seen and examined at bedside. He has no complaints. - Current Medication List Current Medications: Active Medications Acetaminophen (Tylenol -) 650 mg PO Q6H PRN PRN Reason: PAIN SCALE 6-10 Last Admin: 05/09/17 22:29 Dose: 650 mg Bethanechol Chloride (Urecholine -) 50 mg PO BID [facility] Last Admin: 05/12/17 10:00 Dose: 50 mg Diphenhydramine HCl (Benadryl -) 25 mg PO Q6H PRN PRN Reason: FOR ITCHING Last Admin: 05/03/17 17:39 Dose: 25 mg Heparin Sodium (Porcine) (Heparin -) 5,000 unit SQ BID [facility] Last Admin: 05/12/17 10:00 Dose: 5,000 unit Meropenem 1 gm/ Dextrose 100 mls @ 200 mls/hr IVPB Q8H-IV ANT PRN Reason: Protocol Last Admin: 05/12/17 10:00 Dose: 200 mls/hr [place] Carbonate (Eskalith -) 450 mg PO BID [facility] Last Admin: 05/12/17 10:00 Dose: 450 mg Ondansetron HCl (Zofran Injection) 4 mg IVPB Q6H PRN PRN Reason: NAUSEA Tamsulosin HCl (Flomax -) 0.8 mg PO HS [facility] Last Admin: 05/11/17 21:31 Dose: 0.8 mg - Objective Vital Signs: Vital Signs Temperature 98.1 F 05/12/17 14:00 Pulse Rate 77 05/12/17 14:00 Respiratory Rate 17 05/12/17 14:00 Blood Pressure 125/63 05/12/17 14:00 O2 Sat by Pulse Oximetry (%) 95 05/11/17 20:25 Constitutional: Yes: Calm Eyes: Yes: Conjunctiva Clear HENT: Yes: Atraumatic Neck: Yes: Supple Cardiovascular: Yes: S1, S2 Respiratory: Yes: CTA Bilaterally Gastrointestinal: Yes: Soft Genitourinary: Yes: WNL Edema: No Neurological: Yes: Oriented Psychiatric: Yes: Oriented Labs: CBC, BMP 05/12/17 07:30 05/12/17 07:30 INR, PTT INR 2.05 (0.82-1.09) H 04/29/17 05:38 Problem List - Problems (1) Acute kidney injury Code(s): N17.9 - ACUTE KIDNEY FAILURE, UNSPECIFIED (2) Bacteremia Code(s): R78.81 - BACTEREMIA (3) Leukocytosis Code(s): D72.829 - ELEVATED WHITE BLOOD CELL COUNT, UNSPECIFIED (4) Sepsis Code(s): A41.9 - SEPSIS, UNSPECIFIED ORGANISM Qualifiers: Qualified Code(s): A41.9 - Sepsis, unspecified organism (5) UTI (urinary tract infection) Code(s): N39.0 - URINARY TRACT INFECTION, SITE NOT SPECIFIED Qualifiers: Qualified Code(s): N39.0 - Urinary tract infection, site not specified; R31.9 - Hematuria, unspecified Assessment/Plan Current Medications Generic Name Dose Route Start Last Admin Trade Name Freq PRN Reason Stop Dose Admin Acetaminophen 650 mg 04/28/17 23:45 05/09/17 22:29 Tylenol - PO 650 mg Q6H PRN Administration PAIN SCALE 6-10 Bethanechol Chloride 50 mg 05/04/17 14:57 05/12/17 10:00 Urecholine - PO 50 mg BID ANT Administration Diphenhydramine HCl 25 mg 05/01/17 20:38 05/03/17 17:39 Benadryl - PO 25 mg Q6H PRN Administration FOR ITCHING Heparin Sodium (Porcine) 5,000 unit 05/05/17 22:00 05/12/17 10:00 Heparin - SQ 5,000 unit BID ANT Administration Meropenem 1 gm/ Dextrose 100 mls @ 200 mls/hr 05/08/17 18:00 05/12/17 10:00 IVPB 200 mls/hr Q8H-IV ANT Administration Protocol [place] Carbonate 450 mg 04/29/17 10:00 05/12/17 10:00 Eskalith - PO 450 mg BID ANT Administration Ondansetron HCl 4 mg 04/28/17 23:24 Zofran Injection IVPB Q6H PRN NAUSEA Tamsulosin HCl 0.8 mg 05/04/17 22:00 05/11/17 21:31 Flomax - PO 0.8 mg HS ANT Administration Impression 1. UTI 2. sepsis 3. polyuria 4. bipolar 5. BPH 6. JEAN Plan - will have renal workup for CKD done as outpt - sodium stable - cont current fluids restriction - will follow PRN - likely polyuria is multifactorial including polydipsia Dr Greene
--- NOTE | 2017-05-12 16:25 | DS ---
Physical Exam: SUBJECTIVE: Patient seen and examined at bedside today. Pt afebrile, leukocytosis currently 13.5, improved from 13.7. Denies dysuria or urinary frequency. OBJECTIVE: Vital Signs Period Temp Pulse Resp BP Sys/Ospina Pulse Ox Last 24 Hr 98.1 F-98.7 F 63-77 17-20 108-125/55-78 95 PHYSICAL EXAM GENERAL: The patient is awake, alert, and fully oriented, in no acute distress. HEAD: Normal with no signs of trauma. EYES: PERRL, extraocular movements intact, sclera anicteric, conjunctiva clear. ENT: Ears normal, nares patent, oropharynx clear without exudates, moist mucous membranes. NECK: Trachea midline, full range of motion, supple. LUNGS: Breath sounds equal, clear to auscultation bilaterally, no wheezes, no crackles, no accessory muscle use. HEART: Regular rate and rhythm, S1, S2 without murmur, rub or gallop. ABDOMEN: Soft, nontender, nondistended, normoactive bowel sounds, no guarding, no rebound, no hepatosplenomegaly, no masses. EXTREMITIES: 2+ posterior tibial pulses, warm, well-perfused, no edema. Mild tremor noted b/l in upper extremities. NEUROLOGICAL: Cranial nerves II through XII grossly intact. LABS/VITALS TREND 04/28/17 04/29/17 04/29/17 18:28 01:18 02:24 Voiding Method Temperature 99 F Pulse Rate 105 H 96 H 96 H Blood Pressure 112/61 O2 Sat by Pulse 98 98 Oximetry (%) 04/29/17 04/29/17 04/29/17 07:03 09:00 10:00 Voiding Method Temperature Pulse Rate 87 99 H Blood Pressure O2 Sat by Pulse 98 Oximetry (%) 04/29/17 04/29/17 04/29/17 14:30 17:11 22:00 Voiding Method Temperature Pulse Rate 90 94 H 91 H Blood Pressure O2 Sat by Pulse 94 L Oximetry (%) 04/30/17 04/30/17 04/30/17 09:00 10:00 13:47 Voiding Method Indwelling Indwelling Indwelling Catheter Catheter Catheter Temperature Pulse Rate Blood Pressure O2 Sat by Pulse Oximetry (%) 04/30/17 04/30/17 04/30/17 21:00 22:00 22:08 Voiding Method Indwelling Indwelling Indwelling Catheter Catheter Catheter Temperature Pulse Rate Blood Pressure O2 Sat by Pulse Oximetry (%) 05/01/17 05/01/17 05/01/17 06:00 09:00 10:00 Voiding Method Urinal Urinal Temperature 99.0 F 98.5 F Pulse Rate Blood Pressure O2 Sat by Pulse Oximetry (%) 05/01/17 05/01/17 05/01/17 12:41 15:00 18:31 Voiding Method Urinal Indwelling Catheter Temperature 99.6 F Pulse Rate Blood Pressure O2 Sat by Pulse Oximetry (%) 05/01/17 05/01/17 05/01/17 21:00 22:00 22:57 Voiding Method Indwelling Indwelling Indwelling Catheter Catheter Catheter Temperature 102.8 F H Pulse Rate Blood Pressure O2 Sat by Pulse Oximetry (%) 05/02/17 05/02/17 05/02/17 01:56 04:20 06:00 Voiding Method Temperature 102.9 F H 99.9 F H 101.8 F H Pulse Rate Blood Pressure O2 Sat by Pulse Oximetry (%) 05/02/17 05/02/17 05/02/17 09:15 10:51 14:00 Voiding Method Temperature 102.5 F H 99 F 100.3 F H Pulse Rate Blood Pressure O2 Sat by Pulse Oximetry (%) 05/02/17 05/02/17 05/03/17 17:16 21:00 01:35 Voiding Method Temperature 102.7 F H 98.7 F 102.0 F H Pulse Rate Blood Pressure O2 Sat by Pulse Oximetry (%) 05/03/17 05/03/17 05/03/17 05:44 09:45 13:25 Voiding Method Temperature 98.2 F 98.9 F 102.8 F H Pulse Rate Blood Pressure O2 Sat by Pulse Oximetry (%) 05/03/17 05/03/17 05/03/17 15:24 18:00 21:34 Voiding Method Temperature 100.8 F H 98.3 F 98.5 F Pulse Rate Blood Pressure O2 Sat by Pulse Oximetry (%) 05/04/17 05/04/17 05/04/17 05:00 09:00 17:45 Voiding Method Temperature 98.2 F 98.4 F 98.6 F Pulse Rate Blood Pressure O2 Sat by Pulse Oximetry (%) 05/04/17 05/07/17 05/07/17 22:00 06:00 15:17 Voiding Method Temperature 98.7 F 98.1 F 98.3 F Pulse Rate 71 74 Blood Pressure 134/66 114/67 O2 Sat by Pulse Oximetry (%) 05/07/17 05/07/17 05/08/17 18:00 22:00 02:00 Voiding Method Temperature 98.6 F 98.2 F 98.2 F Pulse Rate 68 72 64 Blood Pressure 129/78 132/76 126/83 O2 Sat by Pulse Oximetry (%) 05/08/17 05/08/17 05/08/17 06:00 15:31 19:00 Voiding Method Temperature 98.0 F 98.1 F 98.7 F Pulse Rate 63 67 66 Blood Pressure 153/81 127/73 119/76 O2 Sat by Pulse Oximetry (%) 05/08/17 05/10/17 05/10/17 23:00 06:34 09:18 Voiding Method Temperature 98.2 F 98.1 F 98.3 F Pulse Rate 62 Blood Pressure 135/85 106/62 120/70 O2 Sat by Pulse Oximetry (%) 05/10/17 05/10/17 05/11/17 14:00 18:00 06:00 Voiding Method Temperature 97.3 F L 98.5 F 98.4 F Pulse Rate 61 Blood Pressure 112/62 102/60 O2 Sat by Pulse Oximetry (%) 05/11/17 05/11/17 05/11/17 09:38 14:00 18:00 Voiding Method Temperature 97.5 F L 97.8 F 98.6 F Pulse Rate 72 64 66 Blood Pressure 114/68 114/73 O2 Sat by Pulse Oximetry (%) 05/11/17 05/12/17 05/12/17 22:00 06:22 10:00 Voiding Method Temperature 98.7 F 98.1 F Pulse Rate 68 63 74 Blood Pressure 118/78 O2 Sat by Pulse Oximetry (%) 05/12/17 14:00 Voiding Method Temperature 98.1 F Pulse Rate 77 Blood Pressure O2 Sat by Pulse Oximetry (%) Laboratory Tests 04/28/17 04/29/17 04/29/17 21:24 05:38 05:38 WBC 21.7 H Hgb Hct RDW Plt Count MPV Sodium Potassium Chloride Carbon Dioxide Anion Gap BUN 26 H 24 H Creatinine 2.2 H 1.9 H Calcium Alkaline Phosphatase 43 L Ammonia Total Protein 5.8 L Albumin 2.8 L 04/29/17 04/30/17 04/30/17 05:38 06:20 06:20 WBC 17.3 H Hgb Hct RDW Plt Count MPV Sodium Potassium Chloride Carbon Dioxide Anion Gap BUN 20 H Creatinine 1.5 H D Calcium Alkaline Phosphatase Ammonia 35.5 H Total Protein Albumin 05/01/17 05/01/17 05/02/17 06:30 06:30 06:30 WBC 12.8 H 12.7 H Hgb 12.3 12.7 Hct 38.1 39.2 RDW Plt Count 84 L 93 L MPV 10.2 Sodium Potassium Chloride Carbon Dioxide Anion Gap BUN 17 Creatinine 1.5 H Calcium Alkaline Phosphatase Ammonia Total Protein Albumin 05/02/17 05/03/17 05/03/17 06:30 06:40 06:40 WBC Hgb 11.7 Hct 35.1 L RDW 16.2 H Plt Count 77 L MPV Sodium 140 142 Potassium 4.2 4.4 Chloride 109 H 114 H Carbon Dioxide 25 24 Anion Gap 4 L BUN 17 17 Creatinine 1.7 H 1.5 H Calcium 8.2 L Alkaline Phosphatase Ammonia Total Protein Albumin 05/04/17 05/04/17 05/05/17 07:47 07:47 10:03 WBC 10.6 H Hgb 11.7 Hct 36.3 RDW 16.2 H Plt Count 101 L D MPV Sodium 141 136 Potassium 4.3 4.1 Chloride 111 H 106 Carbon Dioxide 23 21 Anion Gap 7 L BUN 19 H 21 H Creatinine 1.4 H 1.3 Calcium 8.8 9.3 Alkaline Phosphatase Ammonia Total Protein Albumin 05/06/17 05/06/17 05/07/17 06:05 06:05 06:30 WBC 15.9 H D 17.2 H Hgb Hct RDW 16.0 H Plt Count MPV Sodium 140 Potassium 4.6 Chloride 109 H Carbon Dioxide Anion Gap 5 L BUN 26 H D Creatinine 1.4 H Calcium 8.7 Alkaline Phosphatase Ammonia Total Protein Albumin 05/07/17 05/08/17 05/08/17 06:30 06:00 06:00 WBC 16.1 H Hgb Hct RDW Plt Count MPV Sodium 140 Potassium 4.8 Chloride Carbon Dioxide 26 Anion Gap 8 BUN 23 H 26 H Creatinine 1.2 1.4 H Calcium Alkaline Phosphatase Ammonia Total Protein Albumin 05/10/17 05/10/17 05/11/17 06:30 06:30 06:35 WBC 14.3 H Hgb Hct RDW Plt Count MPV Sodium Potassium Chloride Carbon Dioxide Anion Gap BUN 23 H 26 H Creatinine 1.3 1.5 H Calcium Alkaline Phosphatase Ammonia Total Protein Albumin 05/11/17 05/12/17 06:35 07:30 WBC 13.7 H 13.5 H Hgb Hct RDW Plt Count MPV Sodium Potassium Chloride Carbon Dioxide Anion Gap BUN Creatinine Calcium Alkaline Phosphatase Ammonia Total Protein Albumin Microbiology 05/07/17 13:15 Blood - Peripheral Venous Blood Culture - Final NO GROWTH AFTER 5 DAYS INCUBATION 05/07/17 13:10 Blood - Peripheral Venous Blood Culture - Final NO GROWTH AFTER 5 DAYS INCUBATION 05/04/17 12:45 Blood - Arterial Blood Culture - Final NO GROWTH AFTER 5 DAYS INCUBATION 05/04/17 12:40 Blood - Arterial Blood Culture - Final NO GROWTH AFTER 5 DAYS INCUBATION 05/01/17 21:11 Blood - Peripheral Venous Blood Culture - Final NO GROWTH AFTER 5 DAYS INCUBATION 05/01/17 21:05 Blood - Peripheral Venous Blood Culture - Final Klebsiella Pneumoniae 04/28/17 21:47 Blood - Peripheral Venous Blood Culture - Final NO GROWTH AFTER 5 DAYS INCUBATION 04/28/17 21:24 Urine - Urine Clean Catch Urine Culture - Final Escherichia Coli 04/28/17 21:10 Blood - Peripheral Venous Blood Culture - Final Klebsiella Pneumoniae IMAGING 04/28/17: CXR: mild cardiomegaly, otherwise WNL 04/28/17: NSR 04/28/17: Head CT: no mass, lesion, or hemorrhage 04/29/17: Renal sono : mild splenomegaly, right renal cyst and probable nephrolithiasis or acute renal pathology 04/29/17: Hepatic Sono: no sonographic abnormalities 05/04/17: ECHO: moderate tricuspid regurgitation HOSPITAL COURSE: Date of Admission:04/28/17 Date of Discharge: 05/12/17 Admit diagnosis: Sepsis secondary to UTI Pre-admission course 56 yo M with history of bipolar disorder (on [place]) and prostate enlargement ( s/p procedure) c/o dysuria with polyuria with some incontinence for the past 2 days. Pt states he underwent a procedure at the urologists to investigate his prostate enlargement on 04/25. After the procedure, pt was able to void with no problem however Friday 04/27, he developed these symptoms. Pt denies any history of kidney stones, diabetes, or steroid usage. Currently pt is seen alongside jemal, who reports pt having trouble finding choice in words, which he did not have prior. Pt denies fevers/chills, abdominal pain, back pain, diarrhea/constipation, testicular pain, or genital rash/lesions. He also states that was given Vesicare post-procedurally, however developed severe generalized pruritus and promptly stopped taking the medication. ER course was notable for: (1) UA revealing 2K WBC count and 3+ leuk esterase (2) 3L NS (3) Blood Cx x2, Urine Cx (4) Initiation of Meropenem (5) CBC, CMP, Ammonia level, Urine tox. screen Hospital course Pt was managed for sepsis secondary to complicated UTI from E.coli and Klebsiella bacteremia. Upon admission, he completed a 3 day course of meropenem. Pt was then started on Ertapenem and switched back to Meropenem as pt had leukocytosis that was not improving. He completed a 4 day course of this before discharge. Upon discharge he will be sent home with 15 additional days of Ciprofloxacin 500mg BID. His BPH was managed with Flomax 0.4mg PO and was later changed to 0.8mg PO. Bethanechol 50 mg BID was also added to help prevent urinary retention. For this reason, frequent bladder scans were also done and coleman was inserted. However upon d/c, pt has not needed coleman. During pt's stay, he also had JEAN most likely from outlet obstruction from BPH, which was monitored closely. 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 Pt was fluid restricted to 1L and BMP was monitored. Pt uosm responded well with water restriction, as pt made adequate amount of urine between 2-3L with this change. He will f/u with a neprhologist and urologist upon d/c. Minutes to complete discharge: 32 Discharge Summary Reason For Visit: SEPSIS Current Active Problems Acute kidney injury (Acute) Bacteremia (Acute) Leukocytosis (Acute) Obstructive uropathy (Acute) Sepsis (Acute) Sepsis due to Gram negative bacteria (Acute) UTI (urinary tract infection) (Acute) Condition: Stable - Instructions Diet, Activity, Other Instructions: You were recently in the hospital for an infection in your urinary tract. You may resume activity as tolerated. Restrict your fluid intake to 1.5 liters (1500mL) of fluids daily. Please continue the following medication at home: -Ciprofloxacin 500 mg (1 tab) twice a day by mouth, for 15 days starting tomorrow (05/13/17) You may continue your other home medications. We have also changed your Flomax dosage from 0.4 to 0.8mg once a day (take 2 capsules daily), and have added a medication called Bethanechol 50 mg (1 tab) twice a day to your routine. Continue these medications until you meet with your urologist in a week. Please follow-up with your primary care doctor, a kidney doctor, Dr. Greene, and your urologist, Dr. Negro in 1 week. If you develop any chest pain, shortness of breath, or any new symptoms, please go to the hospital. We hope you feel better soon! Referrals: Anali Greene MD [Staff Physician] - Esther Negro MD [Staff Physician] - Disposition: HOME - Home Medications Comprehensive Discharge Medication List: Ambulatory Orders [place] Aspartate [Lithate] 0 mg PO DAILY 04/28/17 [place] Carbonate [Eskalith -] 450 mg PO BID 04/29/17 Bethanechol Chloride [Bethanechol Chloride -] 50 mg PO BID #60 tablet 05/12/17 Ciprofloxacin HCl 500 mg PO BID #60 tablet 05/12/17 Tamsulosin HCl [Flomax -] 0.8 mg PO HS #60 cap 05/12/17 This patient is new to me today: No Emergency Visit: No Critical Care patient: No - Discharge Referral Referred to [facility] Med P.C.: No
[2017-05-12 19:48] LABS: URINE APPEARANCE SLCLOUDY; URINE BILIRUBIN NEGATIVE (NEGATIVE); URINE BLOOD 1+ (NEGATIVE); URINE COLOR LTYELLOW; URINE GLUCOSE (UA) NEGATIVE (NEGATIVE); URINE KETONE NEGATIVE (NEGATIVE); URINE LEUK ESTERASE TRACE (NEGATIVE); URINE NITRITE NEGATIVE (NEGATIVE); URINE PROTEIN NEGATIVE (NEGATIVE); URINE UROBILINOGEN NEGATIVE mg/dL (0.2-1.0)
[2017-05-12 20:12] LABS: URINE BACTERIA RARE /hpf (NONE SEEN); URINE MUCUS RARE; URINE RBC 4 /hpf (0-3); URINE WBC 12 /hpf (3-5)
[2017-05-13 16:30] LABS: ANTIDIURETIC HORMONE 2.7 pg/mL (0.0-4.7)
== END 2017-05-12 17:39 | disposition home or self-care (01) | DRG 862 ==
LOC: JER 18:15 → JERBED 23:29 → UNDOADMIN 23:39 → JERBED 04-29 02:00 → J4S 04-29 02:00 → J6S 05-05 23:48
PROVIDERS: ADMIT Internal Medicine; ATTEND Internal Medicine
DX: T81.4XXA Infection following a procedure, initial encounter (principal); A41.51 Sepsis due to Escherichia coli [E. coli]; G93.41 Metabolic encephalopathy; F31.89 Other bipolar disorder; N17.9 Acute kidney failure, unspecified; N39.0 Urinary tract infection, site not specified; N40.0 Benign prostatic hyperplasia without lower urinary tract symptoms; L29.8 Other pruritus; T50.995A Adverse effect of other drugs, medicaments and biological substances, initial encounter; E86.0 Dehydration; N18.9 Chronic kidney disease, unspecified; N39.498 Other specified urinary incontinence; D72.828 Other elevated white blood cell count; R00.0 Tachycardia, unspecified; N13.9 Obstructive and reflux uropathy, unspecified; E83.42 Hypomagnesemia; D69.6 Thrombocytopenia, unspecified; E66.8 Other obesity; Z68.36 Body mass index [BMI] 36.0-36.9, adult; Z71.3 Dietary counseling and surveillance; R73.03 Prediabetes; R35.8 Other polyuria; R63.1 Polydipsia; R41.82 Altered mental status, unspecified; R16.1 Splenomegaly, not elsewhere classified; N28.1 Cyst of kidney, acquired; N20.0 Calculus of kidney
CPT/HCPCS: 36415; 70450-TC; 71010-TC; 76705-TC; 76775-TC; 80048; 80053; 80178; 80307; 81003; 81015; 82140; 82248; 82553; 82570; 82803; 83036; 83605; 83735; 83930; 83935; 84100; 84484; 84588; 85025; 85027; 85610; 85730; 86850; 86900; 86901; 87040; 87086; 87186; 93005; 93010; 93306-TC; 97116-GP; 97161-GP; 99284-25; J1644

== ENCOUNTER 2017-06-03 08:27 | Inpatient (IN) | payer BC ==
--- NOTE | 2017-06-02 13:34 | HP ---
DATE OF ADMISSION: 06/03/2017 REASON FOR ADMISSION: Transurethral vaporization of the prostate. HISTORY OF PRESENT ILLNESS: Patient is a 56-year-old male with history of prostatism including frequency, urgency, nocturia, and feelings of incomplete bladder emptying. He denies any high blood pressure or diabetes. He denies any allergies. His score was 21. Patient had an elevated PSA of 5.4 recently and underwent a transrectal ultrasound as well as an ultrasound-guided biopsy. This revealed benign tissue. Patient continues to have severe prostatism including frequency, urgency, and incomplete emptying. A transrectal ultrasound revealed a prostate of 151 g and a prostatic urethra of 6 cm. Patient is scheduled for a transurethral vaporization of the prostate. PHYSICAL EXAMINATION: Chest: Clear to auscultation and percussion. Heart: Regular rhythm. Genitalia: Atraumatic. Rectal: Prostate 3+, benign, nontender. Extremities: Full range of motion. IMPRESSION AT PRESENT: Benign prostatic hypertrophy with lower urinary tract symptoms. PLAN: Transurethral vaporization of prostate. Alessandra [id number]
[2017-06-02 13:40] VITALS: BMI 35.4
--- NOTE | 2017-06-03 09:17 | OP ---
Operative Note - Note: Operative Date: 06/03/17 Pre-Operative Diagnosis: bph w luts refract to meds, trilobar hypertrophy Operation: turp/tuvp Post-Operative Diagnosis: Same as Pre-op Surgeon: Esther Negro Anesthesia: General Drains & Tubes with Location: 20 f coleman to leg bag Operative Report Dictated: Yes
--- NOTE | 2017-06-03 09:22 | PN ---
Progress Note (short form) - Note Progress Note: post op pt to be resumed on all preop meds advancd meds as tolerated. oob to chair, beverly geetha,percocet prn pain /325 prn q 4 keflex 500 po q 6 to be d/c with [facility] darnell lb f/u in office tuesday at 10 am
[2017-06-03] MEDS ORDERED: MIDAZOLAM HCL 2 MG/2 ML SINGLE DOSE VIAL ONE ×3 (10:32→11:19)
[2017-06-03] MEDS ORDERED: LIDOCAINE HCL 2% JELLY 10 ML CARTRIDGE ONE (10:36)
[2017-06-03] MEDS ORDERED: KETOROLAC TROMETHAMINE 30 MG/1 ML VIAL ONE ×2 (10:43→11:11)
[2017-06-03] MEDS ORDERED: ceFAZolin SODIUM 1 GM VIAL IVPB ONE (10:45)
[2017-06-03] MEDS ORDERED: ceFAZolin SODIUM 1 GM VIAL ONE (10:47)
[2017-06-03] MEDS ORDERED: DEXAMETHASONE SOD PHOSPHATE 4 MG/1 ML VIAL ONE (11:11)
[2017-06-03] MEDS ORDERED: oxyCODONE HCL 5 MG TABLET PO PRN ×2 (11:16→11:50)
[2017-06-03] MEDS ORDERED: ACETAMINOPHEN 325 MG TABLET (FP) PO PRN (11:16)
[2017-06-03] MEDS ORDERED: ONDANSETRON 4 MG/2 ML VIAL IVPUSH PRN (11:50)
[2017-06-03] MEDS ORDERED: PROMETHAZINE HCL 25 MG/1 ML VIAL IVPUSH PRN (11:50)
[2017-06-03] MEDS ORDERED: ACETAMINOPHEN INJECTION 100 ML IVPB ONE (12:58)
[2017-06-03] MEDS ORDERED: ACETAMINOPHEN 1000 MG/100 ML VIAL (NON FORMULARY) IVPB ONE ×2 (13:00→13:02)
--- NOTE | 2017-06-03 13:29 | PN ---
Progress Note (short form) - Note Progress Note: UROLOGY. pt. with gross totel hematuria with cbi will anmit for 23hr. will d/c cbi in am and d/c home with coleman to leg bag.
[2017-06-03] MEDS: CEPHALEXIN MONOHYDRATE 500 MG CAPSULE (UD) PO SCH ×2 (17:25→18:36)
[2017-06-03] MEDS: LITHIUM CARBONATE 450 MG TABLET.ER PO SCH ×2 (17:25→22:37)
[2017-06-03] MEDS ORDERED: PT OWN MED DRAWER 7, Y5N ONE (21:32)
[2017-06-03] MEDS: TAMSULOSIN HCL 0.4 MG CAP.ER.24H (FP) PO SCH (22:37)
[2017-06-04 00:32] LABS: MCH 27.5 pg (25.7-33.7); MCHC 33.2 g/dl (32.0-35.9); MEAN CELL VOLUME 82.8 fl (80-96); MEAN PLT VOLUME 9.6 fl (7.5-11.1); PLATELET COUNT 145 K/MM3 (134-434); RDW 16.4 % (11.9-15.9); WHITE BLOOD COUNT 16.8 K/mm3 (4.0-10.0)
[2017-06-04] MEDS: CEPHALEXIN MONOHYDRATE 500 MG CAPSULE (UD) PO SCH ×2 (00:35→06:45)
[2017-06-04 00:56] LABS: ALBUMIN 3.1 g/dl (3.4-5.0); ALK PHOS 36 U/L (45-117); ANION GAP 9 (8-16); BILIRUBIN,TOTAL 0.8 mg/dL (0.2-1.0); CO2 25 mmol/L (21-32); CREATININE 1.5 mg/dL (0.7-1.3); GLUCOSE,RANDOM 117 mg/dL (74-106); SGOT/AST 15 U/L (15-37); SGPT/ALT 47 U/L (12-78); TOT PROT 6.1 g/dl (6.4-8.2)
[2017-06-04 07:42] LABS: MCHC 32.4 g/dl (32.0-35.9); MEAN CELL VOLUME 83.6 fl (80-96); MEAN PLT VOLUME 9.9 fl (7.5-11.1); PLATELET COUNT 145 K/MM3 (134-434); RDW 16.6 % (11.9-15.9); WHITE BLOOD COUNT 18.5 K/mm3 (4.0-10.0)
[2017-06-04 08:18] LABS: ANION GAP 10 (8-16); CALCIUM 9.3 mg/dL (8.5-10.1); CO2 24 mmol/L (21-32); CREATININE 1.3 mg/dL (0.7-1.3); GLUCOSE,RANDOM 112 mg/dL (74-106)
--- NOTE | 2017-06-04 08:47 | PN ---
Progress Note (short form) - Note Progress Note: Anesthesia Post op Pt seen and examined S;Alert and awake O: Vital Signs Temperature 98.9 F 06/04/17 06:00 Pulse Rate 73 06/04/17 06:00 Respiratory Rate 20 06/04/17 06:00 Blood Pressure 132/80 06/04/17 06:00 O2 Sat by Pulse Oximetry (%) 99 06/03/17 21:00 CBC, BMP 06/04/17 06:00 06/04/17 06:00 A/P:s/p TURP Doing well post op Continue current care Irvin Ayon MD
[2017-06-04] MEDS ORDERED: PT OWN MED DRAWER 7, Y5N ONE ×3 (09:08→20:40)
[2017-06-04] MEDS: LITHIUM CARBONATE 450 MG TABLET.ER PO SCH ×2 (10:26→21:17)
[2017-06-04] MEDS: TAMSULOSIN HCL 0.4 MG CAP.ER.24H (FP) PO SCH (21:16)
[2017-06-05] MEDS: LITHIUM CARBONATE 450 MG TABLET.ER PO SCH ×2 (10:24→21:23)
[2017-06-05] MEDS: TAMSULOSIN HCL 0.4 MG CAP.ER.24H (FP) PO SCH (21:23)
[2017-06-06 10:11] VITALS: BP 106/58; PULSE 71; TEMP 97.3
[2017-06-06 10:38] LABS: MCH 27.1 pg (25.7-33.7); MCHC 32.1 g/dl (32.0-35.9); MEAN CELL VOLUME 84.4 fl (80-96); MEAN PLT VOLUME 9.8 fl (7.5-11.1); PLATELET COUNT 154 K/MM3 (134-434); RDW 16.7 % (11.9-15.9); WHITE BLOOD COUNT 9.3 K/mm3 (4.0-10.0)
[2017-06-06] MEDS: LITHIUM CARBONATE 450 MG TABLET.ER PO SCH (10:45)
--- NOTE | 2017-06-06 12:38 | PATH ---
Surgical Pathology Report Patient Name: LEORA CASH Med. Rec. #: [id number] /Age/Gender: 1960 (Age: 56) / M Account: [id number] Location: [facility] MED/SURG Taken: 06/03/2017 Received: 06/03/2017 Reported: 06/06/2017 Physicians: Esther Negro M.D. Specimen(s) Received PROSTATE CHIPS Clinical History BPH Final Diagnosis PROSTATE, TUR: BENIGN PROSTATIC HYPERTROPHY WITH ASSOCIATED ACUTE INFLAMMATION. Electronically Signed Francisco Duarte M.D. Gross Description Received in formalin labeled "prostate tissue," is a 12 g, 8.5 x 8.0 x 0.5 cm aggregate of verdu[place], irregular, firm to rubbery portions of tissue, consistent with prostate tissue. The specimen is entirely submitted in 10 cassettes. /06/03/2017 [facility]06/03/2017
== END 2017-06-06 13:00 | disposition home or self-care (01) | DRG 714 ==
LOC: JASUSAT 08:27 → J8W 14:45 → JASUSAT 14:46
PROVIDERS: ADMIT Urology; ATTEND Urology
PROC: 0VT08ZZ Resection of Prostate, Via Natural or Artificial Opening Endoscopic (ICD-10-PCS; principal; 2017-06-03 10:00)
DX: N40.1 Benign prostatic hyperplasia with lower urinary tract symptoms (principal); R31.0 Gross hematuria; R35.0 Frequency of micturition
CPT/HCPCS: 36415; 80048; 80053; 85027; 86850; 86900; 86901; 88305-TC; 94760

== ENCOUNTER 2020-11-08 17:19 | Inpatient (IN) | payer BC ==
[2020-11-08] MEDS ORDERED: SODIUM CHLORIDE 0.9% 500 ML INFUS.BAG IV ONE ×3 (18:00→22:00)
[2020-11-08] MEDS ORDERED: VANCOMYCIN 1 GM in D5W (PRE-DOCKED) 1,000 MG/250 ML IVPB ONE (18:53)
[2020-11-08] MEDS ORDERED: PIPERACILLIN/TAZOB 3.375 GM 3.375 GM in DEXTROSE 5%-WATER - 50 ML IVPB ONE (18:53)
[2020-11-08] MEDS ORDERED: VANCOMYCIN 1 GRAM (PRE-DOCKED) 1,000 MG/250 ML BAG IVPB ONE (19:52)
[2020-11-08] MEDS ORDERED: PIPERACILLIN/TAZOB 3.375 GM 3.375 GM/50 ML BAG IVPB ONE (19:53)
[2020-11-08 20:09] LABS: INR 1.5 (0.83-1.09); PROTHROMBIN TIME (PATIENT) 17.9 SEC (9.7-13.0)
[2020-11-08 20:34] LABS: CHLORIDE 104 mmol/L (98-107); POTASSIUM 4.3 mmol/L (3.5-5.1); SODIUM 136 mmol/L (136-145)
[2020-11-08 20:36] LABS: CALCIUM 9.2 mg/dL (8.5-10.1)
[2020-11-08 20:37] LABS: ALBUMIN 3.5 g/dl (3.4-5.0); ANION GAP 7 MMOL/L (8-16); BLOOD UREA NITROGEN 26.9 mg/dL (7-18); CO2 25 mmol/L (21-32); GLUCOSE,RANDOM 140 mg/dL (74-106)
[2020-11-08 20:40] LABS: CREATININE 2.3 mg/dL (0.55-1.3); SGOT/AST 32 U/L (15-37); SGPT/ALT 42 U/L (13-61)
[2020-11-08 20:42] LABS: BILIRUBIN,TOTAL 2.1 mg/dL (0.2-1); TOT PROT 7.5 g/dl (6.4-8.2)
[2020-11-08 20:43] LABS: ALK PHOS 65 U/L (45-117); BASO % 0.1 % (0-2.0); EOS % 0.1 % (0-4.5); HEMATOCRIT 38.6 % (35.4-49); RDW 13.7 % (11.9-15.9)
[2020-11-08 20:52] LABS: HEMOGLOBIN 12.6 GM/dL (11.7-16.9); LYMPH % 3.2 % (8-40); MCH 27.3 pg (25.7-33.7); MCHC 32.7 g/dl (32.0-35.9); MEAN CELL VOLUME 83.3 fl (80-96); MEAN PLT VOLUME 11.1 fl (7.5-11.1); NEUT % 85.6 % (42.8-82.8); PLATELET COUNT 182 K/MM3 (134-434); RBC 4.64 M/mm3 (4.00-5.60); WHITE BLOOD COUNT 20.2 K/mm3 (4.0-10.0)
[2020-11-08 21:28] LABS: BILIRUBIN,DIRECT 0.6 mg/dL (0.0-0.2)
[2020-11-08 21:32] LABS: ANISOCYTOSIS 1+; MACROCYTOSIS 0; PLATELET ESTIMATE NORMAL
[2020-11-08] MEDS ORDERED: ACETAMINOPHEN 1000 MG/100 ML VIAL (NON FORMULARY) IVPB ONE (22:13)
[2020-11-08 22:20] LABS: PHENCYCLIDINE,URINE NEGATIVE ng/ml (CUTOFF=25); URINE BARBITURATES NEGATIVE ng/ml (CUTOFF=200)
[2020-11-08 22:21] LABS: METHADONE, UR NEGATIVE ng/ml (CUTOFF=300)
[2020-11-08 22:26] LABS: COCAINE, UR NEGATIVE ng/ml (CUTOFF=300); EPI CELLS 8 /uL (0-25.1); HYALINE CASTS 8 /uL (0-3.1); OPIATES, URI NEGATIVE ng/ml (CUTOFF=300); URINE AMPHETAMINES NEGATIVE ng/ml (CUTOFF=500); URINE APPEARANCE TURBID; URINE BACTERIA 1389 /uL (0-1359); URINE BENZODIAZEPINES NEGATIVE ng/ml (CUTOFF=200); URINE BILIRUBIN NEGATIVE (NEGATIVE); URINE COLOR YELLOW; URINE GLUCOSE (UA) NEGATIVE (NEGATIVE); URINE KETONE NEGATIVE (NEGATIVE); URINE LEUK ESTERASE 3+ (NEGATIVE); URINE NITRITE NEGATIVE (NEGATIVE); URINE PROTEIN 2+ (NEGATIVE); URINE RBC 30 /uL (0-23.9); URINE WBC 2385 /uL (0-25.8)
[2020-11-08] MEDS ORDERED: ACETAMINOPHEN INJECTION 100 ML IVPB ONE (22:54)
[2020-11-09] MEDS ORDERED: ACETAMINOPHEN 1000 MG/100 ML VIAL (NON FORMULARY) IVPB ONE (06:10)
[2020-11-09] MEDS ORDERED: ACETAMINOPHEN INJECTION 100 ML IVPB ONE (06:11)
[2020-11-09] MEDS ORDERED: ACETAMINOPHEN 325 MG TABLET (FP) PO PRN (09:59)
[2020-11-09] MEDS ORDERED: VANCOMYCIN 1 GM PREMIX - 1 GM/200 ML BAG IVPB SCH (10:00)
[2020-11-09] MEDS ORDERED: PIPERACILLIN/TAZOB 2.25 GM 2.25 GM in DEXTROSE 5%-WATER - 50 ML IVPB SCH ×2 (10:00→18:00)
[2020-11-09] MEDS ORDERED: VANCOMYCIN 1 GRAM (PRE-DOCKED) 1 GM/200 ML BAG IVPB SCH (10:15)
[2020-11-09] MEDS ORDERED: ENOXAPARIN NA (PORCINE) 40 MG/0.4 ML DISP.SYRIN SQ ONE ×2 (10:23)
[2020-11-09] MEDS ORDERED: VANCOMYCIN 1 GRAM (PRE-DOCKED) 1,000 MG/250 ML BAG IVPB ONE (10:23)
[2020-11-09] MEDS: DEXTROSE 5%-0.45% SALINE 1,000 ML IV SCH (10:25)
[2020-11-09] MEDS: ENOXAPARIN NA (PORCINE) 40 MG/0.4 ML DISP.SYRIN SQ SCH (10:25)
[2020-11-09] MEDS: LITHIUM CARBONATE 450 MG TABLET.ER PO SCH ×2 (10:25→23:08)
[2020-11-09] MEDS ORDERED: PIPERACILLIN/TAZOB 3.375 GM 3.375 GM/50 ML BAG IVPB ONE (15:35)
[2020-11-09] MEDS: PIPERACILLIN/TAZOB 3.375 GM 3.375 GM in DEXTROSE 5%-WATER - 50 ML IVPB SCH ×2 (15:39→18:02)
[2020-11-09 16:31] LABS: EOS % 0.7 % (0-4.5)
[2020-11-09 16:40] LABS: HEMATOCRIT 38.2 % (35.4-49)
[2020-11-09 16:43] LABS: BASO % 0.2 % (0-2.0); HEMOGLOBIN 12.3 GM/dL (11.7-16.9); LYMPH % 2.4 % (8-40); MCH 27.1 pg (25.7-33.7); MCHC 32.3 g/dl (32.0-35.9); MEAN CELL VOLUME 83.9 fl (80-96); MONO % 8.1 % (3.8-10.2); NEUT % 88.6 % (42.8-82.8); PLATELET COUNT 138 K/MM3 (134-434); RBC 4.56 M/mm3 (4.00-5.60); WHITE BLOOD COUNT 14.9 K/mm3 (4.0-10.0)
[2020-11-09 17:21] LABS: ALBUMIN 2.8 g/dl (3.4-5.0); BILIRUBIN,TOTAL 1.2 mg/dL (0.2-1); BLOOD UREA NITROGEN 30.9 mg/dL (7-18); CREATININE 2.3 mg/dL (0.55-1.3); POTASSIUM 4.6 mmol/L (3.5-5.1); TOT PROT 6.4 g/dl (6.4-8.2)
[2020-11-09] MEDS ORDERED: TAMSULOSIN HCL 0.4 MG CAP ONE (23:00)
[2020-11-09] MEDS: TAMSULOSIN HCL 0.4 MG CAP PO SCH (23:08)
[2020-11-10] MEDS ORDERED: PIPERACILLIN/TAZOB 3.375 GM 3.375 GM/50 ML BAG IVPB ONE ×2 (01:48→11:11)
[2020-11-10] MEDS: PIPERACILLIN/TAZOB 3.375 GM 3.375 GM in DEXTROSE 5%-WATER - 50 ML IVPB SCH ×3 (02:15→18:15)
[2020-11-10] MEDS ORDERED: ENOXAPARIN NA (PORCINE) 40 MG/0.4 ML DISP.SYRIN SQ ONE (11:10)
[2020-11-10] MEDS: ENOXAPARIN NA (PORCINE) 40 MG/0.4 ML DISP.SYRIN SQ SCH (11:11)
[2020-11-10] MEDS: LITHIUM CARBONATE 450 MG TABLET.ER PO SCH ×2 (11:16→22:08)
[2020-11-10] MEDS: DEXTROSE 5%-0.45% SALINE 1,000 ML IV SCH (13:53)
[2020-11-10] MEDS ORDERED: PIPERACILLIN/TAZOBACTAM 3.375 GM VIAL IVPB ONE (17:49)
[2020-11-10] MEDS ORDERED: DEXTROSE 5%-WATER - 50 ML IVPB ONE (17:49)
[2020-11-10] MEDS ORDERED: PT OWN MED DRAWER 7, Y5N ONE (20:39)
[2020-11-10] MEDS: TAMSULOSIN HCL 0.4 MG CAP PO SCH (22:08)
[2020-11-11] MEDS ORDERED: PIPERACILLIN/TAZOBACTAM 3.375 GM VIAL IVPB ONE ×3 (00:31→17:28)
[2020-11-11] MEDS ORDERED: DEXTROSE 5%-WATER - 50 ML IVPB ONE ×3 (00:31→17:28)
[2020-11-11] MEDS: PIPERACILLIN/TAZOB 3.375 GM 3.375 GM in DEXTROSE 5%-WATER - 50 ML IVPB SCH ×2 (01:06→09:45)
[2020-11-11] MEDS: DEXTROSE 5%-0.45% SALINE 1,000 ML IV SCH ×2 (06:52→09:46)
[2020-11-11 08:46] LABS: BASO % 0.4 % (0-2.0); EOS % 8.7 % (0-4.5); HEMATOCRIT 34.7 % (35.4-49); HEMOGLOBIN 11.6 GM/dL (11.7-16.9); LYMPH % 4.7 % (8-40); MCH 27.6 pg (25.7-33.7); MCHC 33.4 g/dl (32.0-35.9); MEAN CELL VOLUME 82.8 fl (80-96); MEAN PLT VOLUME 10.2 fl (7.5-11.1); MONO % 12.1 % (3.8-10.2); NEUT % 74.1 % (42.8-82.8); PLATELET COUNT 169 K/MM3 (134-434); RBC 4.19 M/mm3 (4.00-5.60); RDW 14.4 % (11.9-15.9); WHITE BLOOD COUNT 8.8 K/mm3 (4.0-10.0)
[2020-11-11 09:14] LABS: POTASSIUM 4.3 mmol/L (3.5-5.1)
[2020-11-11 09:21] LABS: CALCIUM 9.1 mg/dL (8.5-10.1); CREATININE 2.3 mg/dL (0.55-1.3)
[2020-11-11 09:22] LABS: ALBUMIN 2.4 g/dl (3.4-5.0)
[2020-11-11 09:23] LABS: BILIRUBIN,TOTAL 0.7 mg/dL (0.2-1)
[2020-11-11] MEDS ORDERED: PT OWN MED DRAWER 7, Y5N ONE ×2 (09:26→20:55)
[2020-11-11] MEDS: ENOXAPARIN NA (PORCINE) 40 MG/0.4 ML DISP.SYRIN SQ SCH (09:47)
[2020-11-11] MEDS: LITHIUM CARBONATE 450 MG TABLET.ER PO SCH ×2 (09:47→21:10)
[2020-11-11] MEDS: TAMSULOSIN HCL 0.4 MG CAP PO SCH (21:10)
[2020-11-12] MEDS ORDERED: DEXTROSE 5%-WATER - 50 ML IVPB ONE ×3 (00:35→17:39)
[2020-11-12] MEDS ORDERED: PIPERACILLIN/TAZOBACTAM 3.375 GM VIAL IVPB ONE ×3 (00:35→17:38)
[2020-11-12] MEDS: PIPERACILLIN/TAZOB 3.375 GM 3.375 GM in DEXTROSE 5%-WATER - 50 ML IVPB SCH ×4 (01:11→17:44)
[2020-11-12] MEDS: DEXTROSE 5%-0.45% SALINE 1,000 ML IV SCH ×2 (05:25→17:43)
[2020-11-12] MEDS: ENOXAPARIN NA (PORCINE) 40 MG/0.4 ML DISP.SYRIN SQ SCH (09:42)
[2020-11-12] MEDS: LITHIUM CARBONATE 450 MG TABLET.ER PO SCH ×2 (09:42→21:42)
[2020-11-12] MEDS ORDERED: PT OWN MED DRAWER 7, Y5N ONE (21:36)
[2020-11-12] MEDS: TAMSULOSIN HCL 0.4 MG CAP PO SCH (21:42)
[2020-11-13] MEDS ORDERED: DEXTROSE 5%-WATER - 50 ML IVPB ONE ×2 (09:19→17:19)
[2020-11-13] MEDS ORDERED: PIPERACILLIN/TAZOBACTAM 3.375 GM VIAL IVPB ONE ×2 (09:19→17:19)
[2020-11-13 09:26] LABS: BASO % 0.5 % (0-2.0); EOS % 7.5 % (0-4.5); HEMATOCRIT 37.2 % (35.4-49); HEMOGLOBIN 12.3 GM/dL (11.7-16.9); LYMPH % 10.2 % (8-40); MCH 27.5 pg (25.7-33.7); MCHC 33.1 g/dl (32.0-35.9); MEAN CELL VOLUME 83.2 fl (80-96); MEAN PLT VOLUME 10.5 fl (7.5-11.1); MONO % 8.5 % (3.8-10.2); NEUT % 73.3 % (42.8-82.8); PLATELET COUNT 189 K/MM3 (134-434); RBC 4.47 M/mm3 (4.00-5.60); RDW 14.8 % (11.9-15.9); WHITE BLOOD COUNT 15.1 K/mm3 (4.0-10.0)
[2020-11-13] MEDS: PIPERACILLIN/TAZOB 3.375 GM 3.375 GM in DEXTROSE 5%-WATER - 50 ML IVPB SCH ×2 (09:27→17:21)
[2020-11-13] MEDS: ENOXAPARIN NA (PORCINE) 40 MG/0.4 ML DISP.SYRIN SQ SCH (09:28)
[2020-11-13] MEDS ORDERED: PT OWN MED DRAWER 7, Y5N ONE ×2 (09:30→21:26)
[2020-11-13] MEDS: LITHIUM CARBONATE 450 MG TABLET.ER PO SCH ×2 (09:31→21:35)
[2020-11-13] MEDS: DEXTROSE 5%-0.45% SALINE 1,000 ML IV SCH (09:40)
[2020-11-13 09:51] LABS: POTASSIUM 4.6 mmol/L (3.5-5.1)
[2020-11-13 10:18] LABS: PLATELET ESTIMATE ADEQUATE
[2020-11-13 10:19] LABS: CALCIUM 9.5 mg/dL (8.5-10.1)
[2020-11-13 10:20] LABS: ALBUMIN 2.4 g/dl (3.4-5.0); BLOOD UREA NITROGEN 23.1 mg/dL (7-18)
[2020-11-13 10:22] LABS: CREATININE 1.9 mg/dL (0.55-1.3)
[2020-11-13 10:23] LABS: BILIRUBIN,TOTAL 0.8 mg/dL (0.2-1)
[2020-11-13 10:24] LABS: TOT PROT 6.5 g/dl (6.4-8.2)
[2020-11-13] MEDS ORDERED: SODIUM CHLORIDE 0.45% 1,000 ML IV SCH (19:45)
[2020-11-13] MEDS: TAMSULOSIN HCL 0.4 MG CAP PO SCH (21:35)
[2020-11-14] MEDS ORDERED: PT OWN MED DRAWER 7, Y5N ONE ×2 (09:01→21:04)
[2020-11-14] MEDS ORDERED: DEXTROSE 5%-WATER - 50 ML IVPB ONE ×3 (09:01→18:04)
[2020-11-14] MEDS ORDERED: PIPERACILLIN/TAZOBACTAM 3.375 GM VIAL IVPB ONE ×3 (09:01→18:04)
[2020-11-14 09:09] LABS: EOS % 5.3 % (0-4.5); HEMATOCRIT 35.7 % (35.4-49); HEMOGLOBIN 11.7 GM/dL (11.7-16.9); LYMPH % 10.2 % (8-40); MCH 27.3 pg (25.7-33.7); MCHC 32.9 g/dl (32.0-35.9); MEAN PLT VOLUME 10.1 fl (7.5-11.1); MONO % 7.1 % (3.8-10.2); NEUT % 76.4 % (42.8-82.8); PLATELET COUNT 238 K/MM3 (134-434); WHITE BLOOD COUNT 13.4 K/mm3 (4.0-10.0)
[2020-11-14] MEDS: PIPERACILLIN/TAZOB 3.375 GM 3.375 GM in DEXTROSE 5%-WATER - 50 ML IVPB SCH ×2 (09:10→18:18)
[2020-11-14] MEDS: ENOXAPARIN NA (PORCINE) 40 MG/0.4 ML DISP.SYRIN SQ SCH (09:10)
[2020-11-14] MEDS: LITHIUM CARBONATE 450 MG TABLET.ER PO SCH ×2 (09:17→22:21)
[2020-11-14 09:31] LABS: POTASSIUM 4.6 mmol/L (3.5-5.1)
[2020-11-14 09:32] LABS: CALCIUM 9.1 mg/dL (8.5-10.1)
[2020-11-14 09:33] LABS: ALBUMIN 2.4 g/dl (3.4-5.0); BLOOD UREA NITROGEN 21.7 mg/dL (7-18)
[2020-11-14 09:36] LABS: CREATININE 1.7 mg/dL (0.55-1.3)
[2020-11-14 09:38] LABS: BILIRUBIN,TOTAL 0.3 mg/dL (0.2-1); TOT PROT 6.4 g/dl (6.4-8.2)
[2020-11-14] MEDS: TAMSULOSIN HCL 0.4 MG CAP PO SCH (22:21)
[2020-11-15] MEDS ORDERED: PIPERACILLIN/TAZOBACTAM 3.375 GM VIAL IVPB ONE ×3 (01:16→17:13)
[2020-11-15] MEDS ORDERED: DEXTROSE 5%-WATER - 50 ML IVPB ONE ×3 (01:16→17:13)
[2020-11-15] MEDS: PIPERACILLIN/TAZOB 3.375 GM 3.375 GM in DEXTROSE 5%-WATER - 50 ML IVPB SCH ×5 (03:02→17:21)
[2020-11-15 08:20] LABS: BASO % 0.7 % (0-2.0); EOS % 3.8 % (0-4.5); HEMATOCRIT 30.4 % (35.4-49); HEMOGLOBIN 9.9 GM/dL (11.7-16.9); LYMPH % 9.5 % (8-40); MCHC 32.6 g/dl (32.0-35.9); MEAN CELL VOLUME 82.8 fl (80-96); MEAN PLT VOLUME 9.7 fl (7.5-11.1); MONO % 5.3 % (3.8-10.2); NEUT % 80.7 % (42.8-82.8); PLATELET COUNT 308 K/MM3 (134-434); RBC 3.67 M/mm3 (4.00-5.60); RDW 14.9 % (11.9-15.9); WHITE BLOOD COUNT 18.7 K/mm3 (4.0-10.0)
[2020-11-15 08:59] LABS: POTASSIUM 4.3 mmol/L (3.5-5.1)
[2020-11-15 09:07] LABS: ALBUMIN 2.4 g/dl (3.4-5.0); CALCIUM 9.5 mg/dL (8.5-10.1)
[2020-11-15 09:10] LABS: CREATININE 1.7 mg/dL (0.55-1.3)
[2020-11-15 09:12] LABS: TOT PROT 6.5 g/dl (6.4-8.2)
[2020-11-15 09:13] LABS: BILIRUBIN,TOTAL 0.5 mg/dL (0.2-1)
[2020-11-15] MEDS ORDERED: PT OWN MED DRAWER 7, Y5N ONE ×2 (09:56→21:08)
[2020-11-15] MEDS: ENOXAPARIN NA (PORCINE) 40 MG/0.4 ML DISP.SYRIN SQ SCH (10:37)
[2020-11-15] MEDS: LITHIUM CARBONATE 450 MG TABLET.ER PO SCH ×2 (10:38→21:24)
[2020-11-15 11:12] LABS: ANISOCYTOSIS 0; HELMET CELLS 0; HOWELL-JOLLY BODIES 0; MACROCYTOSIS 0; OVALOCYTE 0; PLATELET ESTIMATE NORMAL; ROULEAU 0; SICKELED CELLS 0; TARGET CELLS 0; TEAR DROP CELLS 0; TOXIC GRANULATION 0
[2020-11-15] MEDS: TAMSULOSIN HCL 0.4 MG CAP PO SCH (21:24)
[2020-11-16] MEDS ORDERED: PIPERACILLIN/TAZOBACTAM 3.375 GM VIAL IVPB ONE ×3 (01:58→17:49)
[2020-11-16] MEDS ORDERED: DEXTROSE 5%-WATER - 50 ML IVPB ONE ×3 (01:58→17:49)
[2020-11-16] MEDS: PIPERACILLIN/TAZOB 3.375 GM 3.375 GM in DEXTROSE 5%-WATER - 50 ML IVPB SCH ×3 (02:30→17:55)
[2020-11-16] MEDS: LITHIUM CARBONATE 450 MG TABLET.ER PO SCH ×2 (09:27→21:02)
[2020-11-16 10:15] LABS: BASO % 0.4 % (0-2.0); HEMATOCRIT 37.7 % (35.4-49); HEMOGLOBIN 12.4 GM/dL (11.7-16.9); LYMPH % 9.4 % (8-40); MCH 27.3 pg (25.7-33.7); MCHC 32.9 g/dl (32.0-35.9); MEAN CELL VOLUME 82.9 fl (80-96); MEAN PLT VOLUME 10.1 fl (7.5-11.1); MONO % 3.8 % (3.8-10.2); NEUT % 83.4 % (42.8-82.8); PLATELET COUNT 294 K/MM3 (134-434); RBC 4.55 M/mm3 (4.00-5.60); RDW 14.8 % (11.9-15.9); WHITE BLOOD COUNT 16.5 K/mm3 (4.0-10.0)
[2020-11-16 10:42] LABS: POTASSIUM 4.3 mmol/L (3.5-5.1)
[2020-11-16 10:49] LABS: ALBUMIN 2.7 g/dl (3.4-5.0); CALCIUM 9.7 mg/dL (8.5-10.1)
[2020-11-16 10:51] LABS: BLOOD UREA NITROGEN 25.2 mg/dL (7-18)
[2020-11-16 10:53] LABS: CREATININE 1.9 mg/dL (0.55-1.3)
[2020-11-16 10:55] LABS: BILIRUBIN,TOTAL 0.5 mg/dL (0.2-1); TOT PROT 7.2 g/dl (6.4-8.2)
[2020-11-16 11:36] LABS: ANISOCYTOSIS 1+
[2020-11-16] MEDS ORDERED: PT OWN MED DRAWER 7, Y5N ONE (20:48)
[2020-11-16] MEDS: TAMSULOSIN HCL 0.4 MG CAP PO SCH (21:02)
[2020-11-17] MEDS ORDERED: PIPERACILLIN/TAZOBACTAM 3.375 GM VIAL IVPB ONE ×2 (00:45→08:58)
[2020-11-17] MEDS ORDERED: DEXTROSE 5%-WATER - 50 ML IVPB ONE ×2 (00:45→08:58)
[2020-11-17] MEDS: PIPERACILLIN/TAZOB 3.375 GM 3.375 GM in DEXTROSE 5%-WATER - 50 ML IVPB SCH ×3 (01:13→18:52)
[2020-11-17] MEDS ORDERED: PT OWN MED DRAWER 7, Y5N ONE ×3 (08:18→21:31)
[2020-11-17 09:01] LABS: BASO % 0.5 % (0-2.0); EOS % 3.3 % (0-4.5); HEMATOCRIT 40.8 % (35.4-49); LYMPH % 8.8 % (8-40); MCH 26.6 pg (25.7-33.7); MCHC 31.9 g/dl (32.0-35.9); MEAN CELL VOLUME 83.2 fl (80-96); MEAN PLT VOLUME 9.9 fl (7.5-11.1); MONO % 4.2 % (3.8-10.2); NEUT % 83.2 % (42.8-82.8); PLATELET COUNT 347 K/MM3 (134-434); RBC 4.91 M/mm3 (4.00-5.60); RDW 14.7 % (11.9-15.9); WHITE BLOOD COUNT 19.3 K/mm3 (4.0-10.0)
[2020-11-17] MEDS: LITHIUM CARBONATE 450 MG TABLET.ER PO SCH ×2 (09:08→21:35)
[2020-11-17 09:20] LABS: POTASSIUM 4.2 mmol/L (3.5-5.1)
[2020-11-17 09:40] LABS: BLOOD UREA NITROGEN 26.1 mg/dL (7-18); CALCIUM 10.1 mg/dL (8.5-10.1)
[2020-11-17 09:44] LABS: BILIRUBIN,TOTAL 0.4 mg/dL (0.2-1); TOT PROT 7.6 g/dl (6.4-8.2)
[2020-11-17 11:34] LABS: ANISOCYTOSIS 0; HELMET CELLS 0; HOWELL-JOLLY BODIES 0; MACROCYTOSIS 0; OVALOCYTE 0; PLATELET ESTIMATE NORMAL; ROULEAU 0; SICKELED CELLS 0; TARGET CELLS 0; TEAR DROP CELLS 0; TOXIC GRANULATION 0
[2020-11-17] MEDS ORDERED: LACTATED RINGERS SOLUTION 1,000 ML IV SCH ×2 (16:30→20:26)
[2020-11-17] MEDS ORDERED: ONDANSETRON 4 MG/2 ML VIAL IVPUSH PRN ×2 (16:30→20:26)
[2020-11-17] MEDS ORDERED: PROPOFOL 20 ML ONE (17:08)
[2020-11-17] MEDS ORDERED: MIDAZOLAM HCL 2 MG/2 ML SINGLE DOSE VIAL ONE ×2 (17:08→17:18)
[2020-11-17] MEDS ORDERED: LIDOCAINE HCL/PF 2% SDV 5ML VIAL ONE (17:08)
[2020-11-17] MEDS ORDERED: SEVOFLURANE 250 ML BTL ONE (17:15)
[2020-11-17] MEDS ORDERED: DESFLURANE GAS 240 ML BOTTLE IH ONE (17:15)
[2020-11-17] MEDS ORDERED: DEXAMETHASONE SOD PHOSPHATE 4 MG/1 ML VIAL ONE (17:41)
[2020-11-17] MEDS ORDERED: ACETAMINOPHEN 325 MG TABLET (FP) PO PRN ×2 (17:45→20:26)
[2020-11-17 19:55] LABS: HEMATOCRIT 38.5 % (35.4-49); HEMOGLOBIN 12.4 GM/dL (11.7-16.9); MCH 27.1 pg (25.7-33.7); MCHC 32.2 g/dl (32.0-35.9); MEAN PLT VOLUME 9.6 fl (7.5-11.1); PLATELET COUNT 354 K/MM3 (134-434); RBC 4.59 M/mm3 (4.00-5.60); RDW 14.9 % (11.9-15.9); WHITE BLOOD COUNT 20.4 K/mm3 (4.0-10.0)
[2020-11-17 20:27] LABS: POTASSIUM 4.3 mmol/L (3.5-5.1)
[2020-11-17 20:30] LABS: CALCIUM 9.6 mg/dL (8.5-10.1)
[2020-11-17 20:31] LABS: BLOOD UREA NITROGEN 28.7 mg/dL (7-18)
[2020-11-17] MEDS: oxyCODONE HCL 5 MG TABLET PO PRN (21:32)
[2020-11-17] MEDS: TAMSULOSIN HCL 0.4 MG CAP PO SCH (21:34)
[2020-11-18] MEDS ORDERED: PIPERACILLIN/TAZOBACTAM 3.375 GM VIAL IVPB ONE ×3 (00:36→17:16)
[2020-11-18] MEDS ORDERED: DEXTROSE 5%-WATER - 50 ML IVPB ONE ×3 (00:36→17:16)
[2020-11-18] MEDS: PIPERACILLIN/TAZOB 3.375 GM 3.375 GM in DEXTROSE 5%-WATER - 50 ML IVPB SCH ×3 (01:00→17:29)
[2020-11-18 08:54] LABS: BASO % 0.2 % (0-2.0); EOS % 0.6 % (0-4.5); HEMATOCRIT 34.9 % (35.4-49); HEMOGLOBIN 11.1 GM/dL (11.7-16.9); LYMPH % 5.6 % (8-40); MCH 26.7 pg (25.7-33.7); MCHC 31.7 g/dl (32.0-35.9); MEAN CELL VOLUME 84.2 fl (80-96); MEAN PLT VOLUME 9.8 fl (7.5-11.1); MONO % 4.4 % (3.8-10.2); NEUT % 89.2 % (42.8-82.8); PLATELET COUNT 341 K/MM3 (134-434); RBC 4.14 M/mm3 (4.00-5.60); RDW 14.7 % (11.9-15.9)
[2020-11-18 09:22] LABS: POTASSIUM 4.2 mmol/L (3.5-5.1)
[2020-11-18 09:28] LABS: ALBUMIN 2.8 g/dl (3.4-5.0); BLOOD UREA NITROGEN 30.1 mg/dL (7-18)
[2020-11-18 09:29] LABS: WHITE BLOOD COUNT 31.7 K/mm3 (4.0-10.0)
[2020-11-18 09:32] LABS: BILIRUBIN,TOTAL 0.6 mg/dL (0.2-1); CREATININE 2.2 mg/dL (0.55-1.3); TOT PROT 6.8 g/dl (6.4-8.2)
[2020-11-18] MEDS ORDERED: PT OWN MED DRAWER 7, Y5N ONE ×2 (10:04→21:29)
[2020-11-18] MEDS: LITHIUM CARBONATE 450 MG TABLET.ER PO SCH ×2 (10:14→21:34)
[2020-11-18 12:36] LABS: ANISOCYTOSIS 0; MACROCYTOSIS 0; PLATELET ESTIMATE NORMAL
[2020-11-18] MEDS: SODIUM CHLORIDE 0.45% 1,000 ML IV SCH (14:30)
[2020-11-18 15:13] VITALS: BMI 30.8
[2020-11-18] MEDS: TAMSULOSIN HCL 0.4 MG CAP PO SCH (21:33)
[2020-11-19] MEDS ORDERED: PIPERACILLIN/TAZOBACTAM 3.375 GM VIAL IVPB ONE ×3 (01:32→17:44)
[2020-11-19] MEDS ORDERED: DEXTROSE 5%-WATER - 50 ML IVPB ONE ×3 (01:32→17:44)
[2020-11-19] MEDS: PIPERACILLIN/TAZOB 3.375 GM 3.375 GM in DEXTROSE 5%-WATER - 50 ML IVPB SCH ×3 (01:35→17:53)
[2020-11-19] MEDS: SODIUM CHLORIDE 0.45% 1,000 ML IV SCH ×2 (01:40→14:36)
[2020-11-19 09:23] LABS: BASO % 0.4 % (0-2.0); EOS % 2.4 % (0-4.5); HEMATOCRIT 32.8 % (35.4-49); HEMOGLOBIN 10.5 GM/dL (11.7-16.9); LYMPH % 8.2 % (8-40); MCH 26.8 pg (25.7-33.7); MCHC 32.1 g/dl (32.0-35.9); MEAN CELL VOLUME 83.3 fl (80-96); MEAN PLT VOLUME 9.5 fl (7.5-11.1); MONO % 5.1 % (3.8-10.2); NEUT % 83.9 % (42.8-82.8); PLATELET COUNT 342 K/MM3 (134-434); RBC 3.94 M/mm3 (4.00-5.60); RDW 14.7 % (11.9-15.9); WHITE BLOOD COUNT 25.9 K/mm3 (4.0-10.0)
[2020-11-19 09:46] LABS: POTASSIUM 3.9 mmol/L (3.5-5.1)
[2020-11-19 10:22] LABS: ALBUMIN 2.9 g/dl (3.4-5.0); CALCIUM 9.8 mg/dL (8.5-10.1)
[2020-11-19 10:23] LABS: BLOOD UREA NITROGEN 26.9 mg/dL (7-18); MAGNESIUM 2.2 mg/dL (1.8-2.4)
[2020-11-19 10:30] LABS: BILIRUBIN,TOTAL 1.2 mg/dL (0.2-1)
[2020-11-19 11:57] LABS: PLATELET ESTIMATE NORMAL
[2020-11-19 13:00] LABS: ROULEAU 1+
[2020-11-19] MEDS: oxyCODONE HCL 5 MG TABLET PO PRN (20:39)
[2020-11-19] MEDS: TAMSULOSIN HCL 0.4 MG CAP PO SCH (21:29)
[2020-11-20] MEDS ORDERED: DEXTROSE 5%-WATER - 50 ML IVPB ONE ×3 (00:56→17:21)
[2020-11-20] MEDS ORDERED: PIPERACILLIN/TAZOBACTAM 3.375 GM VIAL IVPB ONE ×3 (00:56→17:21)
[2020-11-20] MEDS: PIPERACILLIN/TAZOB 3.375 GM 3.375 GM in DEXTROSE 5%-WATER - 50 ML IVPB SCH ×3 (01:03→17:25)
[2020-11-20] MEDS: SODIUM CHLORIDE 0.45% 1,000 ML IV SCH ×3 (01:03→16:00)
[2020-11-20 08:34] LABS: BASO % 0.4 % (0-2.0); EOS % 3.8 % (0-4.5); HEMATOCRIT 30.5 % (35.4-49); HEMOGLOBIN 9.9 GM/dL (11.7-16.9); LYMPH % 9.8 % (8-40); MCH 27.1 pg (25.7-33.7); MCHC 32.6 g/dl (32.0-35.9); MEAN CELL VOLUME 83.1 fl (80-96); MEAN PLT VOLUME 9.6 fl (7.5-11.1); MONO % 5.2 % (3.8-10.2); NEUT % 80.8 % (42.8-82.8); PLATELET COUNT 340 K/MM3 (134-434); RBC 3.67 M/mm3 (4.00-5.60); RDW 14.1 % (11.9-15.9); WHITE BLOOD COUNT 22.8 K/mm3 (4.0-10.0)
[2020-11-20 09:01] LABS: POTASSIUM 4.4 mmol/L (3.5-5.1)
[2020-11-20 09:06] LABS: CALCIUM 9.8 mg/dL (8.5-10.1)
[2020-11-20 09:07] LABS: ALBUMIN 2.7 g/dl (3.4-5.0); BLOOD UREA NITROGEN 20.9 mg/dL (7-18)
[2020-11-20 09:10] LABS: CREATININE 1.9 mg/dL (0.55-1.3)
[2020-11-20 09:11] LABS: BILIRUBIN,TOTAL 0.6 mg/dL (0.2-1); TOT PROT 6.6 g/dl (6.4-8.2)
[2020-11-20 09:34] LABS: ANISOCYTOSIS 1+; MACROCYTOSIS 0; PLATELET ESTIMATE NORMAL
[2020-11-20] MEDS: oxyCODONE HCL 5 MG TABLET PO PRN (09:49)
[2020-11-20] MEDS: TAMSULOSIN HCL 0.4 MG CAP PO SCH (21:43)
[2020-11-21] MEDS ORDERED: DEXTROSE 5%-WATER - 50 ML IVPB ONE ×3 (00:40→17:49)
[2020-11-21] MEDS ORDERED: PIPERACILLIN/TAZOBACTAM 3.375 GM VIAL IVPB ONE ×3 (00:40→17:49)
[2020-11-21] MEDS: PIPERACILLIN/TAZOB 3.375 GM 3.375 GM in DEXTROSE 5%-WATER - 50 ML IVPB SCH ×3 (01:00→17:55)
[2020-11-21] MEDS: SODIUM CHLORIDE 0.45% 1,000 ML IV SCH (06:18)
[2020-11-21 08:23] LABS: BASO % 0.4 % (0-2.0); EOS % 4.1 % (0-4.5); HEMATOCRIT 28.7 % (35.4-49); HEMOGLOBIN 9.2 GM/dL (11.7-16.9); LYMPH % 9.1 % (8-40); MCH 26.9 pg (25.7-33.7); MCHC 32.1 g/dl (32.0-35.9); MEAN CELL VOLUME 83.8 fl (80-96); MEAN PLT VOLUME 9.7 fl (7.5-11.1); NEUT % 81.4 % (42.8-82.8); PLATELET COUNT 312 K/MM3 (134-434); RBC 3.42 M/mm3 (4.00-5.60); RDW 14.8 % (11.9-15.9); WHITE BLOOD COUNT 19.1 K/mm3 (4.0-10.0)
[2020-11-21 08:59] LABS: POTASSIUM 3.9 mmol/L (3.5-5.1)
[2020-11-21 09:05] LABS: ALBUMIN 2.7 g/dl (3.4-5.0); BLOOD UREA NITROGEN 18.6 mg/dL (7-18)
[2020-11-21 09:06] LABS: CALCIUM 9.7 mg/dL (8.5-10.1)
[2020-11-21 09:09] LABS: CREATININE 1.8 mg/dL (0.55-1.3)
[2020-11-21 09:10] LABS: BILIRUBIN,TOTAL 1.1 mg/dL (0.2-1); TOT PROT 6.4 g/dl (6.4-8.2)
[2020-11-21] MEDS ORDERED: OLANZapine 5 MG TABLET PO SCH (11:00)
[2020-11-21] MEDS: DEXTROSE 5%-WATER - 1,000 ML IV SCH (17:55)
[2020-11-21] MEDS: OLANZapine 10 MG TABLET PO SCH (21:03)
[2020-11-21] MEDS: TAMSULOSIN HCL 0.4 MG CAP PO SCH (21:03)
[2020-11-21] MEDS: LORazepam 2 MG/ML SDV VIAL IM PRN (22:27)
[2020-11-22] MEDS ORDERED: PIPERACILLIN/TAZOBACTAM 3.375 GM VIAL IVPB ONE ×3 (01:51→17:39)
[2020-11-22] MEDS ORDERED: DEXTROSE 5%-WATER - 50 ML IVPB ONE ×3 (01:51→17:39)
[2020-11-22] MEDS: PIPERACILLIN/TAZOB 3.375 GM 3.375 GM in DEXTROSE 5%-WATER - 50 ML IVPB SCH ×3 (02:05→17:42)
[2020-11-22 09:52] LABS: BASO % 0.5 % (0-2.0); EOS % 2.8 % (0-4.5); HEMATOCRIT 29.2 % (35.4-49); HEMOGLOBIN 9.4 GM/dL (11.7-16.9); LYMPH % 11.7 % (8-40); MCH 26.8 pg (25.7-33.7); MCHC 32.1 g/dl (32.0-35.9); MEAN CELL VOLUME 83.6 fl (80-96); MONO % 6.4 % (3.8-10.2); NEUT % 78.6 % (42.8-82.8); PLATELET COUNT 312 K/MM3 (134-434); RDW 14.8 % (11.9-15.9); WHITE BLOOD COUNT 18.4 K/mm3 (4.0-10.0)
[2020-11-22 10:37] LABS: POTASSIUM 3.9 mmol/L (3.5-5.1)
[2020-11-22 10:41] LABS: ALBUMIN 2.6 g/dl (3.4-5.0); CALCIUM 9.8 mg/dL (8.5-10.1)
[2020-11-22 10:45] LABS: CREATININE 1.8 mg/dL (0.55-1.3)
[2020-11-22 10:46] LABS: BILIRUBIN,TOTAL 0.8 mg/dL (0.2-1); TOT PROT 6.4 g/dl (6.4-8.2)
[2020-11-22] MEDS: OLANZapine 10 MG TABLET PO SCH ×2 (11:30→21:35)
[2020-11-22] MEDS: DEXTROSE 5%-WATER - 1,000 ML IV SCH (17:43)
[2020-11-22] MEDS ORDERED: DESMOPRESSIN ACETATE 4 MCG/ML AMP IVPB ONE (19:13)
[2020-11-22] MEDS: TAMSULOSIN HCL 0.4 MG CAP PO SCH (21:35)
[2020-11-23] MEDS ORDERED: DEXTROSE 5%-WATER - 50 ML IVPB ONE ×3 (00:39→17:01)
[2020-11-23] MEDS ORDERED: PIPERACILLIN/TAZOBACTAM 3.375 GM VIAL IVPB ONE ×3 (00:39→17:01)
[2020-11-23] MEDS: PIPERACILLIN/TAZOB 3.375 GM 3.375 GM in DEXTROSE 5%-WATER - 50 ML IVPB SCH ×3 (01:00→17:20)
[2020-11-23] MEDS: LORazepam 2 MG/ML SDV VIAL IM PRN ×2 (01:42→21:13)
[2020-11-23 09:06] LABS: BASO % 0.6 % (0-2.0); HEMATOCRIT 29.2 % (35.4-49); HEMOGLOBIN 9.4 GM/dL (11.7-16.9); LYMPH % 12.6 % (8-40); MCHC 32.3 g/dl (32.0-35.9); MEAN CELL VOLUME 83.7 fl (80-96); MONO % 5.5 % (3.8-10.2); NEUT % 76.3 % (42.8-82.8); PLATELET COUNT 296 K/MM3 (134-434); RBC 3.48 M/mm3 (4.00-5.60); RDW 15.3 % (11.9-15.9); WHITE BLOOD COUNT 16.9 K/mm3 (4.0-10.0)
[2020-11-23 09:22] LABS: POTASSIUM 4.1 mmol/L (3.5-5.1)
[2020-11-23] MEDS: OLANZapine 10 MG TABLET PO SCH ×2 (09:24→21:05)
[2020-11-23 09:32] LABS: CALCIUM 9.7 mg/dL (8.5-10.1)
[2020-11-23 09:33] LABS: ALBUMIN 2.5 g/dl (3.4-5.0); BLOOD UREA NITROGEN 17.6 mg/dL (7-18)
[2020-11-23 09:36] LABS: CREATININE 1.6 mg/dL (0.55-1.3)
[2020-11-23 09:38] LABS: BILIRUBIN,TOTAL 0.8 mg/dL (0.2-1); TOT PROT 6.6 g/dl (6.4-8.2)
[2020-11-23] MEDS ORDERED: DESMOPRESSIN ACETATE 4 MCG/ML AMP IVPB ONE (12:00)
[2020-11-23] MEDS: DEXTROSE 5%-WATER - 1,000 ML IV SCH (17:46)
[2020-11-23] MEDS: TAMSULOSIN HCL 0.4 MG CAP PO SCH (21:00)
[2020-11-24] MEDS ORDERED: PIPERACILLIN/TAZOBACTAM 3.375 GM VIAL IVPB ONE ×3 (00:44→18:14)
[2020-11-24] MEDS ORDERED: DEXTROSE 5%-WATER - 50 ML IVPB ONE ×3 (00:44→18:15)
[2020-11-24] MEDS: PIPERACILLIN/TAZOB 3.375 GM 3.375 GM in DEXTROSE 5%-WATER - 50 ML IVPB SCH ×3 (01:04→18:39)
[2020-11-24] MEDS: LORazepam 2 MG/ML SDV VIAL IM PRN (03:27)
[2020-11-24] MEDS: OLANZapine 10 MG TABLET PO SCH (09:03)
[2020-11-24 09:35] LABS: ALBUMIN 2.6 g/dl (3.4-5.0); BILIRUBIN,TOTAL 0.6 mg/dL (0.2-1); BLOOD UREA NITROGEN 22.1 mg/dL (7-18); CALCIUM 9.4 mg/dL (8.5-10.1); CREATININE 1.6 mg/dL (0.55-1.3); POTASSIUM 4.5 mmol/L (3.5-5.1); TOT PROT 6.7 g/dl (6.4-8.2)
[2020-11-24 09:55] LABS: BASO % 0.9 % (0-2.0); EOS % 5.4 % (0-4.5); HEMATOCRIT 34.2 % (35.4-49); HEMOGLOBIN 11.1 GM/dL (11.7-16.9); LYMPH % 17.4 % (8-40); MCH 27.3 pg (25.7-33.7); MCHC 32.4 g/dl (32.0-35.9); MEAN CELL VOLUME 84.1 fl (80-96); MEAN PLT VOLUME 9.9 fl (7.5-11.1); MONO % 6.3 % (3.8-10.2); PLATELET COUNT 274 K/MM3 (134-434); RBC 4.06 M/mm3 (4.00-5.60); RDW 15.6 % (11.9-15.9); WHITE BLOOD COUNT 13.8 K/mm3 (4.0-10.0)
[2020-11-24] MEDS: LITHIUM CARBONATE 300 MG CAPSULE PO SCH (21:57)
[2020-11-24] MEDS: TAMSULOSIN HCL 0.4 MG CAP PO SCH (21:57)
[2020-11-25 08:44] LABS: BASO % 1.1 % (0-2.0); EOS % 6.3 % (0-4.5); HEMATOCRIT 30.1 % (35.4-49); HEMOGLOBIN 9.7 GM/dL (11.7-16.9); LYMPH % 15.2 % (8-40); MCH 26.9 pg (25.7-33.7); MCHC 32.1 g/dl (32.0-35.9); MEAN CELL VOLUME 83.9 fl (80-96); MEAN PLT VOLUME 10.1 fl (7.5-11.1); MONO % 5.9 % (3.8-10.2); NEUT % 71.5 % (42.8-82.8); PLATELET COUNT 281 K/MM3 (134-434); RBC 3.59 M/mm3 (4.00-5.60); RDW 15.4 % (11.9-15.9); WHITE BLOOD COUNT 12.1 K/mm3 (4.0-10.0)
[2020-11-25 09:17] LABS: ALBUMIN 2.5 g/dl (3.4-5.0); BLOOD UREA NITROGEN 20.5 mg/dL (7-18); CALCIUM 9.2 mg/dL (8.5-10.1)
[2020-11-25 09:21] LABS: CREATININE 1.5 mg/dL (0.55-1.3)
[2020-11-25 09:22] LABS: TOT PROT 6.5 g/dl (6.4-8.2)
[2020-11-25 09:23] LABS: BILIRUBIN,TOTAL 0.8 mg/dL (0.2-1)
[2020-11-25] MEDS ORDERED: PT OWN MED DRAWER 7, Y5N ONE ×2 (10:02→21:50)
[2020-11-25] MEDS: LITHIUM CARBONATE 300 MG CAPSULE PO SCH ×2 (10:03→22:06)
[2020-11-25] MEDS: VITAMIN B COMP W-C 1 EA TABLET (NEPHRO-VITE) PO SCH (10:04)
[2020-11-25] MEDS: DEXTROSE 5%-WATER - 1,000 ML IV SCH ×2 (10:04→18:17)
[2020-11-25] MEDS ORDERED: DESMOPRESSIN ACETATE 4 MCG/ML AMP IVPB ONE (17:23)
[2020-11-25] MEDS: TAMSULOSIN HCL 0.4 MG CAP PO SCH (22:05)
[2020-11-26] MEDS ORDERED: PT OWN MED DRAWER 7, Y5N ONE (09:05)
[2020-11-26] MEDS: VITAMIN B COMP W-C 1 EA TABLET (NEPHRO-VITE) PO SCH (09:09)
[2020-11-26] MEDS: LITHIUM CARBONATE 300 MG CAPSULE PO SCH (09:09)
[2020-11-26 10:11] LABS: CALCIUM 9.3 mg/dL (8.5-10.1)
[2020-11-26 10:12] LABS: BLOOD UREA NITROGEN 20.3 mg/dL (7-18)
[2020-11-26 10:15] LABS: CREATININE 1.6 mg/dL (0.55-1.3)
[2020-11-26 10:18] LABS: POTASSIUM 4.4 mmol/L (3.5-5.1)
[2020-11-26] MEDS ORDERED: CEFUROXIME AXETIL 500 MG TABLET PO SCH (12:15)
[2020-11-26 14:27] VITALS: BP 124/72; PULSE 85; TEMP 98.6
== END 2020-11-26 18:16 | disposition home health service (06) | DRG 854 ==
LOC: JER 17:19 → JERBED 22:16 → J6S 11-10 11:34
PROVIDERS: ADMIT Internal Medicine; ATTEND Internal Medicine
PROC: 0VT08ZZ Resection of Prostate, Via Natural or Artificial Opening Endoscopic (ICD-10-PCS; principal; 2020-11-17 17:00)
DX: A41.50 Gram-negative sepsis, unspecified (principal); N17.9 Acute kidney failure, unspecified; N39.0 Urinary tract infection, site not specified; N13.30 Unspecified hydronephrosis; E87.0 Hyperosmolality and hypernatremia; N13.9 Obstructive and reflux uropathy, unspecified; N40.1 Benign prostatic hyperplasia with lower urinary tract symptoms; R33.8 Other retention of urine; R31.9 Hematuria, unspecified; N18.9 Chronic kidney disease, unspecified; F31.9 Bipolar disorder, unspecified; B96.1 Klebsiella pneumoniae [K. pneumoniae] as the cause of diseases classified elsewhere; Z87.891 Personal history of nicotine dependence
CPT/HCPCS: 36415; 70450-TC; 71045-TC-FY; 76775-TC; 76856-TC; 80048; 80053; 80178; 80307; 81003; 82140; 82248; 82550; 82553; 82607; 83605; 83735; 83935; 84443; 84484; 85025; 85027; 85610; 85730; 86850; 86900; 86901; 87040; 87086; 87186; 88305-TC; 93005; 93010; 94010; 94760; 97116-GP; 97162-GP; 99285-25; C9803; J0131; J2597; U0003

== ENCOUNTER 2021-06-05 15:36 | Emergency (ER) | payer BC ==
[2021-06-05 16:16] VITALS: BMI 32.3
[2021-06-05] MEDS ORDERED: CASIRIVIMAB/IMDEVIMAB 10 ML in SODIUM CHLORIDE 100 ML IVPB ONE (16:31)
[2021-06-05 18:48] LABS: BASO % 0.9 % (0-2.0); EOS % 0.9 % (0-4.5); HEMATOCRIT 38.5 % (35.4-49); LYMPH % 38.5 % (8-40); MCH 26.9 pg (25.7-33.7); MCHC 33.8 g/dl (32.0-35.9); MEAN CELL VOLUME 79.4 fl (80-96); MONO % 9.3 % (3.8-10.2); NEUT % 50.4 % (42.8-82.8); PLATELET COUNT 119 10^3/uL (134-434); RBC 4.85 M/mm3 (4.00-5.60); RDW 16.5 % (11.9-15.9); WHITE BLOOD COUNT 4.1 K/mm3 (4.0-10.0)
[2021-06-05 19:06] LABS: CALCIUM 8.4 mg/dL (8.5-10.1)
[2021-06-05 19:07] LABS: ALBUMIN 3.4 g/dl (3.4-5.0); BLOOD UREA NITROGEN 22.8 mg/dL (7-18)
[2021-06-05 19:10] LABS: CREATININE 2.1 mg/dL (0.55-1.3)
[2021-06-05 19:11] LABS: BILIRUBIN,TOTAL 0.3 mg/dL (0.2-1); TOT PROT 7.6 g/dl (6.4-8.2)
[2021-06-05 20:22] VITALS: BP 109/71; PULSE 65; TEMP 98.7
== END 2021-06-05 21:00 | disposition home or self-care (01) ==
LOC: JER 15:36
DX: U07.1 COVID-19 (principal)
CPT/HCPCS: 36415; 80053; 85025; 99284-25